=== PATIENT | female | born 1955 | race Caucasian/White ===

== ENCOUNTER → 2017-08-30 16:34 | Outpatient (CLI) | payer BC, SELFPAY ==
--- NOTE | 2017-08-30 16:41 | MM_ITS ---
. MM Dig screening mamm BI w/CAD CAD Screening ORDERING PHYSICIAN : Ramsey Nye MD PATIENT AGE: 62 years GENDER: Female COMPARISON: Previous mammograms: July INDICATION: Routine screening mammogram. No hormones. Previous stereotactic biopsy right breast benign. Family history:. Sister breast cancer age 54. Also paternal aunt with breast cancer TECHNIQUE: Standard CC and MLO images were obtained. R2 CAD reviewed. Additional axillary cc FINDINGS: Moderate density scattered fibroglandular elements bilaterally. RIGHT BREAST:. Biopsy central right breast with metallic marker clip noted. On this area has remained stable. Density on cc view dissipates on MLO view LEFT BREAST:Inhomogeneous fibroglandular elements appear stable and remain slightly more evident throughout the left breast with right but no new areas of concern... Area of density towards axillary tail left breast is stable and most likely intramammary lymph node Progressive replacement evident. 2013 and 2011 IMPRESSION:. STABLE bilateral mammogram... No new areas of concern BI-RADS Category: 2 Benign Finding(s) RECOMMENDED FOLLOW-UP: 1YR - 1 YEAR FOLLOW-UP (A letter has been sent to the patient regarding results of the study.)
== END ==
PROVIDERS: Family Provider Family Medicine; PCP Family Medicine; Visit Provider Family Medicine
DX: Z12.31 Encounter for screening mammogram for malignant neoplasm of breast (principal)
CPT/HCPCS: 77067

== ENCOUNTER → 2017-11-02 08:21 | Outpatient (POV) | payer BC, SELFPAY | PROVIDERS: Visit Provider Dentist | DX: Z00.00 Encounter for general adult medical examination without abnormal findings (principal) ==

== ENCOUNTER → 2017-11-23 10:21 | Outpatient (POV) | payer BC, SELFPAY | PROVIDERS: Family Provider Family Medicine; Visit Provider Dentist | DX: Z00.00 Encounter for general adult medical examination without abnormal findings (principal) ==

== ENCOUNTER → 2017-12-07 08:18 | Outpatient (POV) | payer BC, SELFPAY | PROVIDERS: Visit Provider Dentist | DX: Z00.00 Encounter for general adult medical examination without abnormal findings (principal) ==

== ENCOUNTER → 2018-09-06 15:12 | Outpatient (CLI) | payer BC, SELFPAY ==
--- NOTE | 2018-09-06 15:16 | XR_ITS ---
XR DEXA axial skeleton HISTORY: ITS.REASON: OSTEOPENIA ORDERING PHYSICIAN: Ramsey Nye MD PATIENT AGE: 63 years COMPARISON: None FINDINGS: The BMD measured at the Right femoral neck is 0.849 g/cm squared with a T score of -1.4. This is considered Osteopenic according to the World Health Organization criteria. Fracture risk is Moderate. Treatment is advised. IMPRESSION: Osteopenia with moderate fracture risk. Treatment suggested. Recommend follow-up exam August 2020
--- NOTE | 2018-09-06 15:17 | MM_ITS ---
MM Dig screening mamm BI w/CAD CAD Screening COMPARISON: Digital mammograms with CAD 08/30/2017 and 07/19/2016 INDICATION: There is a history of breast cancer in patient's sister diagnosed at age 54 and in the patient's paternal aunt. There is been previous biopsy right breast for benign disease. TECHNIQUE: Standard CC and MLO images were obtained. R2 CAD reviewed. FINDINGS: Scattered fibroglandular densities are seen in the subareolar regions and central portions of both breasts. There is a biopsy clip deep to the nipple right breast with very minimal post biopsy scarring. There is a stable benign-appearing nodular density upper outer quadrant left breast. There is a benign-appearing calcification near the axillary tail right breast. There is no suspicious lesion and there are no suspicious microcalcifications. IMPRESSION: Fibrofatty parenchyma with no suspicious lesion seen BI-RADS Category: 2 Benign Finding(s) RECOMMENDED FOLLOW-UP: 1YR - 1 YEAR FOLLOW-UP (A letter has been sent to the patient regarding results of the study.)
== END ==
PROVIDERS: PCP Family Medicine; Visit Provider Family Medicine
DX: M85.80 Other specified disorders of bone density and structure, unspecified site (principal); Z12.31 Encounter for screening mammogram for malignant neoplasm of breast
CPT/HCPCS: 77067; 77080

== ENCOUNTER → 2019-11-14 07:51 | Outpatient (CLI) | payer BC, SELFPAY ==
--- NOTE | 2019-11-14 07:55 | MM_ITS ---
PROCEDURE: MM DIG SCREENING MAMM BI W/CAD Digital Breast Tomosynthesis Included CLINICAL INDICATION: SCREENING COMPARISON: [id number] DIG MAMM-DX UNI ADD VIEWS-LT from 08/03/2016 [facility] MM Dig screening mamm BI w/CAD from 08/30/2017 [facility] MM Dig screening mamm BI w/CAD from 09/06/2018 TECHNIQUE: Standard CC and MLO images and 3D Tomosynthesis was obtained. R2 CAD reviewed. FINDINGS: Breasts are of average density. A metallic density from stereotactic biopsy is seen in the retroareolar region of the right breast. Benign appearing calcifications are noted. No discrete mass suspicious clustered microcalcification or other new findings suspicious for malignancy is apparent. IMPRESSION: BI-RAD Category: 2 Benign Finding(s) FOLLOW-UP: 1YR 1 Year Follow-up (A letter has been sent to the patient regarding results of the study.) Dictated by: Kayden Wilcox 11/14/2019 08:47 Electronically signed by Kayden Wilcox in [place] 11/14/2019 08:47
== END ==
PROVIDERS: PCP Family Medicine; Visit Provider Family Medicine
DX: Z12.31 Encounter for screening mammogram for malignant neoplasm of breast (principal); N60.19 Diffuse cystic mastopathy of unspecified breast; R42 Dizziness and giddiness
CPT/HCPCS: 77063; 77067; 93225; 93226

== ENCOUNTER → 2020-05-04 12:59 | Outpatient (CLI) | payer BC, SELFPAY ==
[2020-05-04 13:47] LABS: Basophils % 0.4 % (0.1-2.0); Eosinophils # 0.1 K/mm3 (0.0-0.4); Eosinophils % 0.7 % (0.1-12.0); Hematocrit 38.2 % (37.0-47.0); Hemoglobin 13.2 g/dL (12.2-16.2); Lymphocytes # 2.6 K/mm3 (0.7-4.5); Lymphocytes % 37.3 % (10-50); Mean Corpuscular HGB Conc 34.7 g/dL (31.8-35.4); Mean Corpuscular Hemoglobin 30.4 pg (27.0-31.2); Mean Corpuscular Volume 87.6 fl (81-99); Mean Platelet Volume 7.6 fl (7.4-10.4); Monocytes # 0.3 K/mm3 (0.1-1.0); Monocytes % 4.7 % (1.7-9.3); Platelet Count 269 K/mm3 (142-424); Red Blood Count 4.36 M/mm3 (4.20-5.40)
[2020-05-05 16:40] LABS: Covid-19 Nasal PCR Sendout Lex Not Detected
== END ==
PROVIDERS: PCP Family Medicine; Visit Provider Nurse Practitioner Family
DX: Z03.818 Encounter for observation for suspected exposure to other biological agents ruled out (principal)
CPT/HCPCS: 36415; 85025; U0004

== ENCOUNTER 2020-07-06 09:55 | Emergency (ER) | payer BC, SELFPAY ==
[2020-07-06 10:20] VITALS: BP 112/72; PULSE 79; RESP 20; TEMP 36.7; O2SAT 98; BMI 24.6
--- NOTE | 2020-07-06 10:59 | HMH.EDUTC ---
[facility] – [place], [place] Disposition Clinical Impression: Diarrhea Qualifiers: Diarrhea type: unspecified type Qualified Code(s): R19.7 - Diarrhea, unspecified Disposition: Home, Self-Care Condition on Discharge: Good Instructions: Diarrhea, DI for Dehydration -- Adult, DI for Nausea -- Adult, Nausea and Vomiting-Adult Additional Instructions: ? Avoid fruit juices, as these do not replace minerals and can actually increase diarrhea. ? Children and adults can use sports drinks to replenish electrolytes. Younger children and infants should use products formulated for children, like oral rehydration solutions. ? Eat food in small amounts and let your stomach recover. ? Get lots of rest. You may feel tired or weak. ? No greasy or fried foods for the next 24-48 hours BRAT diet Bananas Rice Apples and Pajaro ? Make sure to drink plenty of liquids ? Return if needed ? Straight to ER if any life threatening symptoms ? Zofran as prescribed ? You was given an outpatient order for diarrhea panel, please collect specimen and bring back to outpatient lab then call back to the [facility] or follow up with family doctor for results ? Follow up with family doctor in the next 48-72 hours if no improvement or any worsening of symptoms With COVID you may not feel like eating or drinking, but make sure that you are drinking water, gatoraid etc to make sure that you are keeping yourself hydrated to replace loss fluids from sweating, vomiting and diarrhea. Straight to ER if any life threatening symptoms Prescriptions: Ondansetron [Zofran 4mg ODT] 4 mg PO TIDP PRN #6 tab PRN Reason: Nausea Transmission Status: Received by [facility] Referrals: Ramsey Nye MD [Primary Care Provider] - As needed Time of Disposition: 12:51 Medical Decision Making - Hussein Inquiry Pt receiving controlled substance: No Hussein was queried for this patient: No Vital Signs: 07/06/20 10:20 07/06/20 13:02 Temperature 98.1 F 98.1 F Temperature Source Oral Pulse Rate 79 Pulse Rate [Right Brachial] 79 Respiratory Rate 20 20 Blood Pressure 112/72 Blood Pressure [Right Arm] 112/72 Blood Pressure Mean [Right Arm] 85 Blood Pressure Source [Right Arm] Automatic Cuff Blood Pressure Position [Right Arm] Sitting 02 Sat by Pulse Oximetry 98 Oxygen Delivery Method Room Air Orders (Tests/Meds): ED MEDICATIONS Discontinued Medications Generic Name Dose Route Start Last Admin Trade Name Lucy PRN Reason Stop Dose Admin Sodium Chloride 1,000 mls @ 999 mls/hr 07/06/20 11:45 07/06/20 11:15 Sod Chlor 0.9% 1000ml Bag IV 07/06/20 12:45 999 mls/hr .Q1H1M SHANNON Administration Ondansetron HCl 4 mg 07/06/20 11:05 07/06/20 11:39 Ondansetron 4mg/2ml Vial IV 07/06/20 11:06 4 mg ONCE ONE Administration Medical Decision Narrative: Patient resting on exam table states that nausea now gone after medication resting quietly with ordered fluids infusing Patient still resting in bed ordered fluids infusing no vomiting or diarrhea since arrival Fluids finished patient reports that she is feeling much better and no longer having nausea no vomiting or diarrhea since arrival [facility] – [place], [place] HPI - General Stated complaint: tested positive, not feeling good Time Seen by Provider: 07/06/20 10:59 Mode of Arrival: Ambulatory Source of Information: Patient Limitations: No Limitations Description of Symptoms (Recalled from Triage Doc. by RN): PATIENT REPORTS SHE TESTED POSITIVE FOR COVID APPROX 2 WEEKS AGO. C/O GENERAL MALAISE, NAUSEA, STOMACH ACHE, DIARRHEA, AND INABILITY TO EAT OR DRINK X 1 WEEK. HEENT Symptoms (Recalled from RN notes): No Resp Symptoms (Recalled from RN notes): No Skin Symptoms (Recalled from RN notes): No MS Symptoms (Recalled from RN notes): No Functional Status (Recalled from RN notes): WNL - History of Present Illness Provider Complaint: Patient states that she was tested and dx with COVID about 2 weeks ago States that her is doing better but f
[2020-07-06 13:02] VITALS: BP 112/72; PULSE 79; RESP 20; TEMP 36.7; O2SAT 98
== END 2020-07-06 13:13 | disposition home or self-care (01) ==
PROVIDERS: Emergency Provider Nurse Practitioner; PCP Family Medicine
DX: U07.1 COVID-19 (principal); I10 Essential (primary) hypertension; Z88.8 Allergy status to other drugs, medicaments and biological substances; M81.0 Age-related osteoporosis without current pathological fracture; Z79.899 Other long term (current) drug therapy
CPT/HCPCS: 96365; 96375; 99201; J2405

== ENCOUNTER → 2020-11-24 12:44 | Outpatient (CLI) | payer BC, SELFPAY ==
[2020-11-24 13:27] LABS: Alanine Aminotransferase 15 U/L (12-78); Albumin Level 4.3 g/dl (3.5-5.0); Albumin/Globulin Ratio 1.6 (1.1-1.8); Alkaline Phosphatase 59 U/L (38-126); Anion Gap 10.1 mEq/L (5-15); Aspartate Amino Transferase 28 U/L (14-36); Bilirubin,Total 0.4 mg/dl (0.2-1.3); Blood Urea Nitrogen 19 mg/dl (7-17); Carbon Dioxide 30 mmol/L (22.0-30.0); Chloride 103 mmol/L (98-107); Estimated Glomerular Filt Rate 72 ml/min (>60); GFR (African American) 87 ML/MIN (>60); Globulin 2.7 g/dL (1.3-3.2); Glucose 87 mg/dl (74-100); Potassium 4.1 mmoL/L (3.5-5.1); Sodium 139 mmol/L (136-145)
[2020-11-24 13:44] LABS: Free T4 (Free Thyroxine) 1.07 ng/dl (0.78-2.19)
[2020-11-24 13:58] LABS: Thyroid Stimulating Hormone 0.57 uIU/mL (0.465-4.68)
[2020-11-24 14:33] LABS: Vitamin B12 454 pg/mL (239-931)
[2020-11-24 14:43] LABS: Folate > 20.00 ng/mL
[2020-11-24 15:17] LABS: Erythrocyte Sedimentation Rate 14 mm/hr (0-30)
== END ==
PROVIDERS: Visit Provider Family Medicine
DX: I10 Essential (primary) hypertension (principal); E53.8 Deficiency of other specified B group vitamins; E01.0 Iodine-deficiency related diffuse (endemic) goiter; M85.859 Other specified disorders of bone density and structure, unspecified thigh
CPT/HCPCS: 80053; 82607; 82746; 84439; 84443; 85651

== ENCOUNTER → 2020-11-27 07:56 | Outpatient (CLI) | payer BC, SELFPAY ==
--- NOTE | 2020-11-27 07:59 | MM_ITS ---
PROCEDURE: MM DIG SCREENING MAMM BI W/CAD Digital Breast Tomosynthesis Included CLINICAL INDICATION: SCREENING There is a history of breast cancer in patient's sister diagnosed at age 54 and in the patient's aunt. There has been a previous biopsy right breast for benign disease. COMPARISON: MG [facility] MM Dig screening mamm BI w/CAD from 08/30/2017 MG [facility] MM Dig screening mamm BI w/CAD from 09/06/2018 MG MM DIG SCREENING MAMM BI W/CAD from 11/14/2019 TECHNIQUE: Standard CC and MLO images and 3D Tomosynthesis was obtained. R2 CAD reviewed. FINDINGS: Moderate scattered fibroglandular densities are seen throughout both breasts. There is a biopsy clip seen just deep to the nipple right breast. There is a stable tiny benign-appearing nodular density upper-outer quadrant left breast probably a tiny cyst or intramammary node. There is a benign-appearing microcalcification deep within the right breast. There is no suspicious lesion and no suspicious microcalcifications. IMPRESSION: Fibrofatty parenchyma with no suspicious lesions seen BI-RAD Category: 2 Benign Finding(s) FOLLOW-UP: 1YR 1 Year Follow-up (A letter has been sent to the patient regarding results of the study.) Dictated by: Dr. Prem Ching MD 11/27/2020 13:23 Dr. Prem Ching MD in [place] 11/27/2020 13:23
== END ==
PROVIDERS: PCP Family Medicine; Visit Provider Family Medicine
DX: Z12.31 Encounter for screening mammogram for malignant neoplasm of breast (principal)
CPT/HCPCS: 77063; 77067

== ENCOUNTER → 2021-12-15 09:54 | Outpatient (CLI) | payer MEDICARE, SELFPAY ==
--- NOTE | 2021-12-15 09:59 | MM_ITS ---
PROCEDURE INFORMATION: Exam: MG Bilateral Screening 3D Mammography Exam date and time: 12/15/2021 9:56 AM Age: 66 years old Clinical indication: Screening examination. History of breast cancer in sister at age 54 as well as paternal aunt. TECHNIQUE: Imaging protocol: Bilateral Screening tomosynthesis and 2D mammography including computer-aided detection (CAD) when performed. COMPARISON: 1. MG MM DIG SCREENING MAMM BI W/CAD 11/27/2020 8:00 AM 2. MG MM DIG SCREENING MAMM BI W/CAD 11/14/2019 8:00 AM 3. MG [facility] MM Dig screening mamm BI w/CAD 09/06/2018 4:04 PM 4. MG [facility] MM Dig screening mamm BI w/CAD 08/30/2017 4:46 PM FINDINGS: MAMMOGRAPHY: Breast composition: There are scattered areas of fibroglandular density. Mass: No suspicious mass. Architectural distortion: None. Calcifications: No suspicious calcifications. Asymmetric density: None. Skin thickening: None. Axillary adenopathy: None. Other findings: Right biopsy clip. IMPRESSION: No mammographic evidence of malignancy. Annual screening is recommended unless otherwise clinically indicated. ASSESSMENT: BI-RADS Category 2: Benign
== END ==
PROVIDERS: PCP Family Medicine; Visit Provider Family Medicine
DX: Z12.31 Encounter for screening mammogram for malignant neoplasm of breast (principal)
CPT/HCPCS: 77063; 77067

== ENCOUNTER → 2022-03-08 15:27 | Outpatient (POV) | payer MEDICARE, SELFPAY | PROVIDERS: Visit Provider Dermatology | DX: Z00.00 Encounter for general adult medical examination without abnormal findings (principal) ==

== ENCOUNTER → 2022-07-04 08:25 | Outpatient (CLI) | payer MEDICARE, SELFPAY | PROVIDERS: PCP Family Medicine; Visit Provider Physician Assistant | DX: R19.7 Diarrhea, unspecified (principal) ==

== ENCOUNTER → 2022-12-19 08:28 | Outpatient (CLI) | payer MEDICARE, SELFPAY ==
--- NOTE | 2022-12-19 08:32 | MM_ITS ---
PROCEDURE INFORMATION: Exam: MG Bilateral Screening 3D Mammography Exam date and time: 12/19/2022 8:26 AM Age: 67 years old Clinical indication: Screening mammogram TECHNIQUE: Imaging protocol: Bilateral Screening tomosynthesis and 2D mammography including computer-aided detection (CAD) when performed. COMPARISON: 1. MG MM DIG SCREENING MAMM BI W/CAD 12/15/2021 9:56 AM 2. MG MM DIG SCREENING MAMM BI W/CAD 11/27/2020 8:00 AM 3. MG MM DIG SCREENING MAMM BI W/CAD 11/14/2019 8:00 AM 4. MG [facility] MM Dig screening mamm BI w/CAD 09/06/2018 4:04 PM FINDINGS: MAMMOGRAPHY: Breast composition: There are scattered areas of fibroglandular density. Mass: None. Architectural distortion: No new or suspicious architectural distortion. Calcifications: No new or suspicious calcifications are present Asymmetric density: No new or suspicious asymmetric density is present Skin thickening: None. Axillary adenopathy: None. IMPRESSION: No mammographic evidence of malignancy. Recommend annual screening mammography unless otherwise clinically indicated. ASSESSMENT: BI-RADS category 1: Negative
== END ==
PROVIDERS: PCP Family Medicine; Visit Provider Family Medicine
DX: Z12.31 Encounter for screening mammogram for malignant neoplasm of breast (principal)
CPT/HCPCS: 77063; 77067

== ENCOUNTER 2023-01-09 08:53 | Emergency (ER) | payer MEDICARE, SELFPAY ==
--- NOTE | 2023-01-09 09:20 | EXP.UTC ---
Discharge Plan Disposition Patient Disposition: Home, Self-Care Condition: Good Prescriptions Prescriptions: New diphenhydramine HCl [Diphenhydramine HCl] 25 mg capsule 25 mg PO Q6HP PRN (Reason: Itching) Qty: 30 0RF triamcinolone acetonide 0.1 % cream 1 applic topical BID PRN (Reason: itching) Qty: 30 0RF methylprednisolone 4 mg Tablets,Dose Pack 4 mg PO DIRECTED Qty: 21 0RF No Action potassium chloride 10 MEQ capsule, extended release 10 meq PO DAILY triamterene-hydrochlorothiazid 1 EACH tablet 1 each PO DAILY raloxifene 60 MG tablet 60 mg PO DAILY risedronate 35 MG tablet,delayed release (DR/EC) 35 mg PO WEEKLY Referrals Follow up/Referrals: Ramsey Nye MD [Primary Care Provider] - See instructions Activity Restrictions/Add. Instructions Additional Instructions/Restrictions: Try to identify and avoid contact with the offending substance (poison katelyn). Don't start the oral steroids until tomorrow. The diphenhydramine (benedryl) will make you drowsy, so don't drive or operate heavy machinery after taking it. Don't put the topical steroids (triamcinolone) on your face or your groin. Follow up with your regular doctor. GO TO THE ER FOR ANY WORSENING SYMPTOMS OR CONCERNS Clinical Impressions Clinical Impression: Contact dermatitis due to poison katelyn Instructions Patient Instructions: DI for Poison Katelyn Allergy, Methylprednisolone Injection Discharge ED Provider: Corbin Guerrero [facility] General Stated complaint: Poison katelyn rash Time Seen by Provider: 01/09/23 09:20 History of Present Illness Provider Complaint: She states that she has had a rash on her arms, legs, chest and face for the past 1 week. Related Data Home Medications Medication Instructions Recorded Confirmed potassium chloride 10 mEq 10 meq PO DAILY Supplement 07/06/20 01/09/23 capsule,extended release raloxifene 60 mg tablet 60 mg PO DAILY Osteoporosis 07/06/20 01/09/23 risedronate 35 mg tablet,delayed 35 mg PO WEEKLY Osteoporosis 07/06/20 01/09/23 release triamterene 37.5 1 each PO DAILY Hypertension 07/06/20 01/09/23 mg-hydrochlorothiazide 25 mg tablet Previous Rx's Medication Instructions Recorded diphenhydramine HCl 25 mg capsule 25 mg PO Q6HP PRN Itching #30 caps 01/09/23 methylprednisolone 4 mg tablets in 4 mg PO DIRECTED #21 tabs 01/09/23 a dose pack triamcinolone acetonide 0.1 % 1 applic topical BID PRN itching 01/09/23 topical cream #30 grams Allergies Allergy/AdvReac Type Severity Reaction Status Date / Time fentanyl [FENTANYL] Allergy Unknown Verified 01/09/23 09:06 tolmetin [TOLMETIN] Allergy Unknown Verified 01/09/23 09:06 [facility] Disclaimer: The information contained in this section may have been updated after the patient was seen, as this information can be updated by other users. Medical History Hypertension Osteoporosis Rheumatoid arthritis Surgical History H/O excision of ganglion cyst H/O tubal ligation History of cholecystectomy History of hysterectomy History of tonsillectomy Social History Smoking Status: Never smoker alcohol intake: never current occupational status: other Travel in the last 8 weeks: None ROS Obtained: Yes All systems reviewed & no additional complaints except as documented Constitutional Constitutional: Denies chills and Denies fever(s) Eyes Eyes: Denies eye discharge ENT Ears, Nose, Mouth, and Throat: Denies dizziness, Denies otalgia and Denies sore throat Cardiovascular Cardiovascular: Denies chest pain Respiratory Respiratory: Denies shortness of breath, Denies chest congestion, Denies cough, Denies stridor and Denies wheezing Gastrointestinal Gastrointestingal: Denies nausea or vomiting Musculoskeletal Musculoskeleta
[2023-01-09 09:24] VITALS: BP 112/82; PULSE 71; RESP 18; TEMP 36.5; O2SAT 98; BMI 26.4
[2023-01-09 09:54] VITALS: BP 112/82; PULSE 71; RESP 16; TEMP 36.5; O2SAT 98
== END 2023-01-09 09:55 | disposition home or self-care (01) ==
PROVIDERS: Emergency Provider Nurse Practitioner Family; PCP Family Medicine
DX: L23.7 Allergic contact dermatitis due to plants, except food (principal); I10 Essential (primary) hypertension; W60.XXXA Contact with nonvenomous plant thorns and spines and sharp leaves, initial encounter
CPT/HCPCS: 96372; 99212; 99214; G0463

== ENCOUNTER → 2023-01-17 08:52 | Outpatient (CLI) | payer MEDICARE, SELFPAY ==
--- NOTE | 2023-01-17 08:55 | XR_ITS ---
FINAL REPORT CLINICAL HISTORY: post menopausal FINDINGS: Using L1-4, the bone mineral density of the spine is 1.034 g/cm2, corresponding to T-score of -0.1. Using the left hip, the bone mineral density of the femoral neck is 0.811 g/cm2, corresponding to a T-score of -1.1. Using the right hip: The bone mineral density of the femoral neck is 0.695 g/cm2, corresponding to a T-score of -1.4. FRAX: 10 year fracture risk is 16 % for a hip fracture and 1.7% for a major osteoporotic fracture. IMPRESSION: Normal bone mineral density of the lumbar spine. Osteopenia of the bilateral hips. NOTE: T-score: Standard deviation compared with peak bone mass of young adult mean. *Following the recommendations of the International Society of Bone densitometry, classification of hip BMD is based on the lower of two T-scores; total hip or femoral neck. Reviewed, Interpreted and Dictated by Ramsey Rene MD Transcribed by Nika Moyer Authenticated and [facility]
== END ==
PROVIDERS: PCP Family Medicine; Visit Provider Family Medicine
DX: M85.89 Other specified disorders of bone density and structure, multiple sites (principal)
CPT/HCPCS: 77080

== ENCOUNTER 2024-02-06 10:30 | Outpatient (CLI) | payer MEDICARE, SELFPAY ==
--- NOTE | 2024-02-06 10:34 | MM_ITS ---
PROCEDURE INFORMATION: Exam: MG Bilateral Screening 3D Mammography Exam date and time: 02/06/2024 10:19 AM Age: 68 years old Clinical indication: Screening examination TECHNIQUE: Imaging protocol: Bilateral Screening tomosynthesis and 2D mammography including computer-aided detection (CAD) when performed. COMPARISON: No relevant prior studies available. FINDINGS: MAMMOGRAPHY: Breast composition: There are scattered areas of fibroglandular density. Mass: None. Architectural distortion: None. Calcifications: No suspicious calcifications. Asymmetric density: None. Skin thickening: None. Axillary adenopathy: None. IMPRESSION: No mammographic evidence of malignancy. Annual screening is recommended unless otherwise clinically indicated. ASSESSMENT: BI-RADS Category 1: Negative
== END 2024-02-06 23:59 | disposition home or self-care (01) ==
LOC: RAD 10:30
PROVIDERS: PCP Family Medicine; Visit Provider Family Medicine
DX: Z12.31 Encounter for screening mammogram for malignant neoplasm of breast (principal)
CPT/HCPCS: 77063; 77067

== ENCOUNTER 2024-05-06 11:51 | Outpatient (CLI) | payer MEDICARE, SELFPAY | END 2024-05-06 23:59 | disposition home or self-care (01) | PROVIDERS: PCP Family Medicine; Visit Provider Nurse Practitioner Family | DX: Z02.9 Encounter for administrative examinations, unspecified (principal) ==

== ENCOUNTER 2024-05-08 08:37 | Outpatient (CLI) | payer MEDICARE, SELFPAY ==
[2024-05-08 08:45] LABS: Adenovirus F 40/41, stool Not Detected (NotDetected); Astrovirus Not Detected (NotDetected); Campylobacter Not Detected (NotDetected); Clostridium Difficile A/B, PCR Not Detected (NotDetected); Cryptosporidium Not Detected (NotDetected); Cyclospora Cayetanesis Not Detected (NotDetected); Entamoeba histolytica Not Detected (NotDetected); Enteroaggregative E coli Not Detected (NotDetected); Enteropathogenic E coli Not Detected (NotDetected); Enterotoxigenic E coli Not Detected (NotDetected); Giardia lamblia Not Detected (NotDetected); Norovirus Not Detected (NotDetected); Plesimonas Shigalloides, PCR Not Detected (NotDetected); Rotavirus A Not Detected (NotDetected); Salmonella, PCR Not Detected (NotDetected); Sapovirus Not Detected (NotDetected); Shiga-like toxin E coli Not Detected (NotDetected); Shigella Enterovasive E coli Not Detected (NotDetected); Vibrio Cholerae Not Detected (NotDetected); Vibrio, PCR Not Detected (NotDetected); Yersinia Entercolitica, PCR Not Detected (NotDetected)
== END 2024-05-08 23:59 | disposition home or self-care (01) ==
PROVIDERS: Nurse Practitioner Family; PCP Family Medicine; Visit Provider Family Medicine
DX: R19.7 Diarrhea, unspecified (principal)
CPT/HCPCS: 87506

== ENCOUNTER 2024-05-20 11:47 | Outpatient (CLI) | payer MEDICARE, SELFPAY ==
[2024-05-20 14:21] LABS: Blood Urea Nitrogen 28 mg/dl (7-17); Estimated Glomerular Filt Rate 62 ml/min (>60); GFR (African American) 75 ML/MIN (>60)
== END 2024-05-20 23:59 | disposition home or self-care (01) ==
LOC: LAB 11:52
PROVIDERS: PCP Family Medicine; Visit Provider Family Medicine
DX: R10.9 Unspecified abdominal pain (principal)
CPT/HCPCS: 36415; 82565; 84520

== ENCOUNTER 2024-05-21 07:47 | Outpatient (CLI) | payer MEDICARE, SELFPAY ==
--- NOTE | 2024-05-21 07:50 | CT_ITS ---
FINAL REPORT TECHNIQUE: Axial CT images of the abdomen and pelvis were obtained before and after the administration of IV contrast. This study was performed with techniques to keep radiation doses as low as reasonably achievable (ALARA). Individualized dose reduction techniques using automated exposure control or adjustment of mA and/or kV according to the patient's size were employed. CLINICAL HISTORY: Acute diffuse abdominal pain. COMPARISON: None. FINDINGS: Abdomen: The lung bases are clear. The heart is normal in size. There are several less than 1 cm hepatic cysts. Patient is status post cholecystectomy. The spleen is unremarkable. No adrenal masses present. The pancreas has an unremarkable appearance. There is a 38 mm cyst in the upper pole of the left kidney. There is a less than 1 cm cyst in the mid right kidney. The aorta is normal in caliber. There is no free fluid or adenopathy. No mass or abnormal fluid collection is seen. Precontrast images demonstrate no evidence of nephrolithiasis. Pelvis: The appendix is normal. There is sigmoid colon diverticulosis. Patient is status post hysterectomy. The urinary bladder is unremarkable. No inflammatory process is seen. There is no evidence of mass or adenopathy. There is no evidence of bowel obstruction. IMPRESSION: No evidence of acute intra-abdominal process. Hepatic and renal cysts as above. Reviewed, Interpreted and Dictated by Tod Wan III, MD Transcribed by Malka Gonzalez PA-C Authenticated and [facility]
[2024-05-21] MEDS: SODIUM CHLORIDE 0.9% 10ML SYR (RAD ONLY) 10 ML IV (08:22)
[2024-05-21] MEDS: IOPAMIDOL-370 (76%);100ML BOTTLE 75 ML IV (08:22)
== END 2024-05-21 23:59 | disposition home or self-care (01) ==
LOC: RAD 07:49
PROVIDERS: PCP Family Medicine; Visit Provider Nurse Practitioner Family
DX: N28.1 Cyst of kidney, acquired (principal); R10.9 Unspecified abdominal pain
CPT/HCPCS: 74178; Q9967

== ENCOUNTER 2024-10-07 15:53 | Outpatient (CLI) | payer MEDICARE, SELFPAY ==
--- NOTE | 2024-10-07 16:03 | ECG_ITS ---
APPROVED REPORT Exam: Resting ECG HR:82 bpm ECG Measurements Heart Rate 82 AXES NE 161 P 65 QRSd 114 QRS -44 QT 367 T 69 QTc 406 Conclusion SINUS RHYTHM WITH OCCASIONAL VENTRICULAR PREMATURE COMPLEXES LEFT AXIS DEVIATION [QRS AXIS < -30] INCOMPLETE RIGHT BUNDLE BRANCH BLOCK [90+ ms QRS DURATION, TERMINAL R IN V1/V2, 40+ ms S IN I/aVL/V4/V5/V6] LEFT VENTRICULAR HYPERTROPHY AND ST-T CHANGE [VOLTAGE CRITERIA PLUS ST/T ABNORMALITY] POSSIBLE SEPTAL MYOCARDIAL INFARCTION , PROBABLY OLD [30 ms Q WAVE IN V1/V2] ABNORMAL ECG UNCONFIRMED REPORT Electronically signed by : Kenny Toure MD 10/09/2024 08:51:20
== END 2024-10-07 23:59 | disposition home or self-care (01) ==
LOC: RT 15:54
PROVIDERS: PCP Family Medicine; Visit Provider Family Medicine
DX: R00.2 Palpitations (principal)
CPT/HCPCS: 93005

== ENCOUNTER 2024-11-04 17:08 | Observation (INO) | payer MEDICARE, SELFPAY ==
[2024-11-04 17:24] VITALS: BP 139/71; PULSE 74; RESP 20; TEMP 36.4; O2SAT 96; BMI 24.1
[2024-11-04 17:33] VITALS: PULSE 74
--- NOTE | 2024-11-04 17:40 | P.HP_ITS ---
History of Present Illness *Admission Date: 11/04/24 *Reason for visit:: symptomatic cardiac dysrrhythmia *History of present illness: Ms. España is a 69-year-old female with a history of diverticulosis, chronic cystitis, abnormal EKG with left anterior fascicular block, hypertension, rheu matoid arthritis, essential hypertension, memory loss, near syncope. Who presented to the office of [facility] for follow-up on insomnia. She has recently been started on sleeping med. She noted having crazy dreams when she went to sleep. She was also noted to be in Augmentin 3 times a day for dental work. She has recently had some visual changes for the past 2 weeks which she describes as white circles on her lateral vision. With exam she was found to have frequent ectopics. Previous EKG showed cardiac arrhythmia she was thus admitted due to a near syncopal episode with dizziness at home. She has had some midsternal chest discomfort but denies any shortness of breath. She sometimes has a cough but has not had any other upper respiratory symptoms or fever. She was thus admitted for further evaluation and treatment. [facility] Disclaimer: The information contained in this section may have been updated after the patient was seen, as this information can be updated by other users. Medical History (Updated 11/04/24 @ 18:01 by Ruthann Vaughn APRN) Diverticulosis Chronic cystitis Rheumatoid arthritis Osteoporosis Hypertension Surgical History H/O excision of ganglion cyst H/O tubal ligation History of tonsillectomy History of hysterectomy History of cholecystectomy Family History (Updated 11/04/24 @ 17:43 by Betzaida Lindsay) Father Brain cancer Family history of myocardial infarction Social History Smoking Status: Never smoker alcohol intake: never current occupational status: other Travel in the last 8 weeks: None Have you lived/traveled outside US in past 30 days?: No Contact w/someone who lives/traveled outside US past 30 days?: No Exposure to someone with infectious disease in past 14 days?: No Do you have a fever (greater than 100.4 F or 38 C)?: No Have you tested positive for COVID-19: No Exposed to someone with COVID-19 in past 14 days?: No Do you have a sore throat?: No Do you have a cough?: No Do you have any weakness?: No Do you have any diarrhea?: No Are you experiencing any unusual bleeding?: No Do you have any muscle aches/pain?: No Do you have any abdominal pain?: No Are you experiencing loss of taste or smell?: No Other Medical History Have you received the Flu Vaccine for this season: Yes Have you received the Pneumonia Vaccine: Yes Review of Systems Constitutional Constitutional: Denies body ache(s), Reports difficulty sleeping, Denies fever(s), Denies frequent falls and Denies headache(s) Eyes Eyes: Denies change in vision, Reports floaters (??) and Denies loss of peripheral vision ENT Ears, Nose, Mouth, and Throat: Reports dizziness, Denies otalgia, Denies headache(s) and Denies sore throat *Cardiovascular Cardiovascular: Reports chest pain (Midsternal), Denies dyspnea, Denies edema, Reports irregular heart rhythm, Denies leg edema, Reports lightheadedness and Reports syncope (Near fainting) *Respiratory Respiratory: Denies chest congestion, Reports cough and Denies dyspnea *Gastrointestinal Gastrointestinal: Denies abdominal pain, Reports diarrhea (Since being on Augmentin), Denies melena, Denies nausea and Denies vomiting *Genitourinary Genitourinary: Denies dysuria *Musculoskeletal Musculoskeletal: Denies abnormal gait *Neurologic Neurologic: Denies abnormal gait, Denies abnormal movements, Denies abnormal speech, Reports dizziness, Denies frequent falls, Denies headache(s) and Reports syncope (Near fainting) Meds Home Medications and Allergies Home Medications ?Medication ?Instructions ?Recorded ?Confirmed ?Type potassium chloride 10 mEq 10 meq PO DAILY Supplement 07/06/20 11/04/24 History capsule,extended release raloxifene 60 mg tablet 60 mg PO DAILY Osteoporosis 07/06/20 11/04/24 History triamterene 37.5 1 each PO DAILY Hypertension 07/06/20 11/04/24 History mg-hydrochlorothiazide 25 mg tablet amoxicillin 500 mg-potassium 500 tab PO TID 11/04/24 11/04/24 History clavulanate 125 mg tablet donepezil 5 mg tablet 5 mg PO HS 11/04/24 11/04/24 History duloxetine 30 mg capsule,delayed 30 mg PO DAILY 11/04/24 11/04/24 History release duloxetine 30 mg capsule,delayed 30 mg PO DAILY 11/04/24 11/04/24 History release leflunomide 20 mg tablet 20 mg PO DAILY 11/04/24 11/04/24 History pramipexole 0.125 mg tablet 0.125 mg PO HS 11/04/24 11/04/24 History trazodone 50 mg tablet 50 mg PO HS 11/04/24 11/04/24 History New Prescriptions to Start Prescriptions: Allergies Allergy/AdvReac Type Severity Reaction Status Date / Time fentanyl (FENTANYL) Allergy Unknown Verified 01/09/23 09:06 tolmetin (TOLMETIN) Allergy Unknown Verified 01/09/23 09:06 Exam Data for Last 24 hours Vital signs and Labs for Last 24 Hours: Temp Pulse Resp BP Pulse Ox O2 Del Method 97.6 F 74 20 139/71 96 Room Air 11/04/24 17:24 11/04/24 17:24 11/04/24 17:24 11/04/24 17:24 11/04/24 17:24 11/04/24 17:24 I & O for Last 24 hours: Intake & Output 11/02/24 11/03/24 11/04/24 11/05/24 11:59 11:59 11:59 11:59 Intake Total 360 / 360 Balance 360 / 360 Weight 136 lb 8 oz Constitutional Constitutional: no acute distress *Routine HEENT Exam Head: Present normocephalic and atraumatic Eye: Present PERRL; Absent conjunctival icterus, scleral injection or conjunctivae pink ENT: Present mucous membranes moist and oropharynx clear *Routine Neck Exam Neck: Present supple; Absent carotid bruit, lymphadenopathy or thyromegaly *Routine Respiratory Exam Respiratory: Present CTA bilaterally (Anteriorly and posteriorly) *Routine Cardiovascular Exam Cardiovascular: Present RRR *Routine Abdominal Exam Abdominal: Present soft and normoactive bowel sounds; Absent tenderness *Routine Rectal Exam Rectal:: deferred *Routine Genitalia Exam Genitalia:: deferred *Routine Extremities Exam Extremities: Absent edema or calf tenderness *Routine Neurological Exam Neurological: Present alert and oriented X3 Assessment and Plan *Assessment and plan (1) Near syncope: Status: Acute Category: Medical Code(s): R55 - Syncope and collapse (2) Cardiac dysrhythmia: Status: Acute Category: Medical Code(s): I49.9 - Cardiac arrhythmia, unspecified Plan director of materials management, echo, cardiology consult.
--- NOTE | 2024-11-04 18:22 | XR_ITS ---
PROCEDURE INFORMATION: Exam: XR Chest Exam date and time: 11/04/2024 9:18 PM Age: 69 years old Clinical indication: Other: Near syncope, pvc's; Additional info: Pvc's, near syncope TECHNIQUE: Imaging protocol: Radiologic exam of the chest. Views: 2 views. COMPARISON: CT ABDOMEN PELVIS WO/W CON 05/21/2024 8:00 AM FINDINGS: Lungs: Unremarkable. No consolidation. Pleural spaces: Unremarkable. No pleural effusion. No pneumothorax. Heart/Mediastinum: Unremarkable. No cardiomegaly. Bones/joints: Unremarkable. IMPRESSION: No acute findings.
--- NOTE | 2024-11-04 18:55 | ECG_ITS ---
APPROVED REPORT Exam: Resting ECG HR:66 bpm ECG Measurements Heart Rate 66 AXES MI 160 P 57 QRSd 122 QRS -38 QT 407 T 68 QTc 421 Conclusion SINUS RHYTHM LEFT AXIS DEVIATION [QRS AXIS < -30] LEFT VENTRICULAR HYPERTROPHY AND ST-T CHANGE [VOLTAGE CRITERIA PLUS ST/T ABNORMALITY] POSSIBLE SEPTAL MYOCARDIAL INFARCTION , OF INDETERMINATE AGE [30 ms Q WAVE IN V1/V2] ABNORMAL ECG UNCONFIRMED REPORT Electronically signed by : Kenny Toure MD 11/05/2024 21:06:22
[2024-11-04 19:08] LABS: Basophils # 0.1 K/mm3 (0-0.2); Basophils % 1.1 % (0.1-2.0); Eosinophils # 0.1 K/mm3 (0.0-0.4); Eosinophils % 1.3 % (0.1-12.0); Hematocrit 40.9 % (37.0-47.0); Hemoglobin 13.9 g/dL (12.2-16.2); Lymphocytes % 31.8 % (10-50); Mean Corpuscular Hemoglobin 28.8 pg (27.0-31.2); Mean Corpuscular Volume 84.9 fl (81-99); Mean Platelet Volume 11.6 fl (7.4-10.4); Monocytes # 0.7 K/mm3 (0.1-1.0); Monocytes % 10.5 % (1.7-9.3); Neutrophils # 3.4 K/mm3 (1.8-7.8); Platelet Count 203 K/mm3 (142-424); Red Blood Count 4.82 M/mm3 (4.20-5.40); Red Cell Distribution Width 13.1 % (11.5-17.5); White Blood Count 6.2 K/mm3 (4.8-10.8)
[2024-11-04 19:15] LABS: Albumin Level 5.3 g/dl (3.5-5.0); Chloride 100 mmol/L (98-107)
[2024-11-04 19:16] LABS: Potassium 3.9 mmoL/L (3.5-5.1); Sodium 138 mmol/L (136-145)
[2024-11-04 19:18] LABS: Blood Urea Nitrogen 24 mg/dl (7-17); Creatinine Clearance Estimated 52 mL/min (50-200); Estimated Glomerular Filt Rate 55 ml/min (>60); GFR (African American) 67 ML/MIN (>60)
[2024-11-04 19:19] LABS: Alanine Aminotransferase 42 U/L (12-78); Albumin/Globulin Ratio 1.6 (1.1-1.8); Alkaline Phosphatase 65 U/L (38-126); Anion Gap 10.9 mEq/L (5-15); Aspartate Amino Transferase 46 U/L (14-36); Bilirubin,Total 0.7 mg/dl (0.2-1.3); Calcium 10.3 mg/dl (8.4-10.2); Carbon Dioxide 31 mmol/L (22.0-30.0); Globulin 3.4 g/dL (1.3-3.2); Glucose 95 mg/dl (74-100); Total Protein,Serum 8.7 g/dl (6.3-8.2)
[2024-11-04 19:36] LABS: Creatine Kinase 94 U/L (30-135); Troponin I < 0.01 ng/ml (0.00-0.034)
[2024-11-04 19:37] LABS: Magnesium 1.9 mg/dl (1.6-2.3)
[2024-11-04 19:46] LABS: CKMB Relative Index 1.6 U/L (0-4.0); Creatine Kinase MB 1.5 ng/ml (0.0-2.03); Hemoglobin A1C 5.4 % (4.0-6.0)
[2024-11-04 19:51] LABS: Lactic Acid 0.6 mmol/L (0.7-2.1)
[2024-11-04 19:53] LABS: Thyroid Stimulating Hormone 1.29 uIU/mL (0.465-4.68)
[2024-11-04 19:56] LABS: Troponin I < 0.01 ng/ml (0.00-0.034)
[2024-11-04 20:00] VITALS: BP 137/65; PULSE 70; PULSE 76; RESP 17; TEMP 36.4; O2SAT 98
[2024-11-04] MEDS: ASPIRIN EC 81MG TABLET 81 MG PO (20:15)
--- NOTE | 2024-11-04 21:27 | PC.NURSE ---
Patient left floor with Radiology at 21:25.
--- NOTE | 2024-11-04 21:33 | PC.NURSE ---
Patient returned from floor from Radiology at 21:33.
[2024-11-04 23:55] LABS: Microscopic, Urine URINE MICROSCOPIC (MICROSCOPIC)
[2024-11-05] VITALS (22 sets, daily range): BP systolic 81–131; BP diastolic 50–87; PULSE 59–80; RESP 14–22; TEMP 36.4–36.9; O2SAT 93–99; BMI 24.0
[2024-11-05 00:45] LABS: Appearance,Urine CLEAR (Clear); Bilirubin,Urine Negative (Negative); Blood, Urine Negative (Negative); Color,Urine YELLOW (Yellow); Glucose,Urine (UA) Negative (Negative); Ketones,Urine Negative (Negative); Leukocyte Esterase,Urine Negative (Negative); Nitrate,Urine Negative (Negative); PH,Urine 6.5 (5.0-8.5); Protein,Urine Negative (Negative); Specific Gravity, Urine 1.015 (1.005-1.030); Urobilinogen,Urine 0.2 EU/dl (0.2)
[2024-11-05 01:12] LABS: Bacteria,Urine 1+ /lpf
--- NOTE | 2024-11-05 05:37 | PC.NURSE ---
Pt A&OX4 and has tolerated room air. Lung sounds clear and bowel sounds active. Pt has ambulated room independently. She has remained sinus rhythm with frequent PVC's on tele. She has no complaints at this time, call light within reach.
[2024-11-05 06:41] LABS: Chol/HDL Ratio 2.2 (1-3.5); Cholesterol 115 mg/dl (140-200); HDL Cholesterol 52 mg/dl (40-60); Triglycerides 111 mg/dl (30-150); VLDL Cholesterol 22 mg/dL (0-40)
[2024-11-05 06:52] LABS: Direct LDL Cholesterol 35.18 mg/dL (100-129)
--- NOTE | 2024-11-05 08:08 | EXP.ACUTE.PN ---
Subjective *Date: 11/05/24 *Time: 08:08 Interval history: Patient states she slept probably about 2 to 3 hours during the night. She continues to have some midsternal chest discomfort at times. This is infrequent. She has noticed it her heart skipping. She denies any dizziness. She has been up to the bathroom several times. She has been eating without problems. Medical Exam Vital signs and Labs for Last 24 Hours: Vital Signs Temp Pulse Pulse Resp BP Pulse Ox O2 Del Method 11/05/24 06:57 Room Air 11/05/24 05:00 Room Air 11/05/24 04:00 80 11/05/24 04:00 97.9 F 65 16 117/60 96 Room Air 11/05/24 03:00 Room Air 11/05/24 01:00 Room Air 11/05/24 00:00 70 11/05/24 00:00 97.9 F 75 16 94/50 L 97 Room Air 11/04/24 23:00 Room Air 11/04/24 21:00 Room Air 11/04/24 20:00 Room Air 11/04/24 20:00 70 11/04/24 20:00 97.6 F 76 17 137/65 98 Room Air 11/04/24 19:00 Room Air 11/04/24 17:43 Room Air 11/04/24 17:33 74 11/04/24 17:24 97.6 F 74 20 139/71 96 Room Air Intake and Output 11/04/24 11/05/24 11/05/24 19:59 03:59 11:59 Intake Total 360 / 360 200 / 560 Output Total 0 / 0 0 / 0 Balance 360 / 360 200 / 560 0 / 560 Intake: Intake, Oral Amount 360 / 360 200 / 560 Output: Output, Urine Amount 0 / 0 0 / 0 Other: Number of Unmeasured Voids 1 1 Weight 136 lb 8 oz 136 lb Patient Weight 11/05/24 11:59 Weight 136 lb Laboratory Results - last 24 hr 11/04/24 18:05: WBC 6.2, RBC 4.82, Hgb 13.9, Hct 40.9, MCV 84.9, MCH 28.8, MCHC 34.0, RDW 13.1, Plt Count 203, MPV 11.6 H, Neut % (Auto) 55.0, Lymph % (Auto) 31.8, [place] % (Auto) 10.5 H, Eos % (Auto) 1.3, Baso % (Auto) 1.1, Neut # (Auto) 3.4, Lymph # (Auto) 2.0, [place] # (Auto) 0.7, Eos # (Auto) 0.1, Baso # (Auto) 0.1, Sodium 138, Potassium 3.9, Chloride 100, Carbon Dioxide 31 H, Anion Gap 10.9, BUN 24 H, Creatinine 1.00, Estimated Creat Clear 52, Estimated GFR 55 L, Est GFR ( Amer) 67, Glucose 95, Hemoglobin A1c 5.4, Calcium 10.3 H, Magnesium 1.9, Total Bilirubin 0.7, AST 46 H, ALT 42, Alkaline Phosphatase 65, Total Creatine Kinase 94, CK-MB (CK-2) 1.5, CK-MB (CK-2) Rel Index 1.6, Troponin I < 0.01 11/04/24 18:05: Troponin I < 0.01, Total Protein 8.7 H, Albumin 5.3 H, Globulin 3.4 H, Albumin/Globulin Ratio 1.6, TSH 1.29 11/04/24 19:20: Lactate 0.6 L 11/04/24 23:45: Urine Color Yellow, Urine Appearance Clear, Urine pH 6.5, Ur Specific [place] 1.015, Urine Protein Negative, Urine Glucose (UA) Negative, Urine Ketones Negative, Urine Blood Negative, Urine Nitrate Negative, Urine Bilirubin Negative, Urine Urobilinogen 0.2, Ur Leukocyte Esterase Negative, Urine RBC 3-5, Urine WBC 3-5, Ur Squamous Epith Cells 5-10, Urine Bacteria 1+ 11/05/24 06:10: Triglycerides 111, Cholesterol 115 L, LDL Cholesterol Direct 35.18 L, VLDL Cholesterol 22, HDL Cholesterol 52, Cholesterol/HDL Ratio 2.2 I & O for Labs for Last 24 Hours: Intake & Output 11/02/24 11/03/24 11/04/24 11/05/24 11:59 11:59 11:59 11:59 Intake Total 560 / 560 Output Total 0 / 0 Balance 560 / 560 Weight 136 lb Constitutional: Present no acute distress Respiratory: Present CTA bilaterally (Anteriorly and posteriorly) Cardiac: Present Reg Rate and Rhythm (Monitor showing sinus rhythm with occasional to frequent PVCs unifocal) GI: Present soft and normal bowel sounds; Absent distention or tenderness Extremities: Absent tenderness, edema or calf tenderness Neuro: Present alert, awake and oriented x 3 Assessment and Plan *Assessment and plan (1) Near syncope: Status: Acute Category: Medical Code(s): R55 - Syncope and collapse (2) Cardiac dysrhythmia: Status: Acute Category: Medical Code(s): I49.9 - Cardiac arrhythmia, unspecified (3) Chest discomfort: Status: Acute Category: Medical Code(s): R07.89 - Other chest pain (4) Abnormal EKG: Status: Acute Category: Medical Code(s): R94.31 - Abnormal electrocardiogram [ECG] [EKG] Plan Cholesterol panel is excellent with an LDL of 35. HDL is 52. Renal function with a GFR of 55. TSH is normal at 1.29. CBC with normal H&H. Chest x-ray showed no acute findings. Echocardiogram results are pending. EKG shows sinus rhythm with occasional PVC.; Incomplete right bundle branch block. Left ventricular hypertrophy. Possible septal myocardial infarction probably old. Cardiology to see this a.m.
[2024-11-05 10:03] LABS: D-Dimer 0.45 ug/mL (0.0-0.5)
--- NOTE | 2024-11-05 10:42 | P.CONCA_ITS ---
History of Present Illness History of Present Illness Consult date: 11/05/24 Requesting physician: Ramsey Nye Chief complaint: Near syncope, abnormal Echo Additional Medical History:: 1. Hypertension 2. Hyperlipidemia 3. Memory issues 4. Near syncope, recurrent A. Echo, 11/05/2024, EF 40-45% with septal and anteroseptal hypokinesis, moderate. History of present illness: 69 yo WF with history of HTN and HLD with family history of CAD in father admitted from Dr. Nye's office for recurrent near syncope along with frequent ectopy on exam. She does relate some recent diarrhea due to antibiotics for dental issues. Pt denies any exertional chest pain, pressure or tightness. Initial troponins normal and EKG is sinus had 66 bpm with LAD, LVH and possible septal WA of indeterminate age. No appreciable acute ST segment changes. Cardiology consulted for evaluation recommendations. Patient denies any prior cardiac history. Non-smoker. Nondiabetic. PFSH PFS Disclaimer: The information contained in this section may have been updated after the patient was seen, as this information can be updated by other users. Medical History (Updated 11/05/24 @ 10:53 by EVELIN Veliz) Diverticulosis Chronic cystitis Rheumatoid arthritis Osteoporosis Hypertension Surgical History H/O excision of ganglion cyst H/O tubal ligation History of tonsillectomy History of hysterectomy History of cholecystectomy Family History (Updated 11/04/24 @ 17:43 by Betzaida Lindsay) Father Brain cancer Family history of myocardial infarction Social History Smoking Status: Never smoker alcohol intake: never current occupational status: other Travel in the last 8 weeks: None Have you lived/traveled outside [place] in past 30 days?: No Contact w/someone who lives/traveled outside US past 30 days?: No Exposure to someone with infectious disease in past 14 days?: No Do you have a fever (greater than 100.4 F or 38 C)?: No Have you tested positive for COVID-19: No Exposed to someone with COVID-19 in past 14 days?: No Do you have a sore throat?: No Do you have a cough?: No Do you have any weakness?: No Do you have any diarrhea?: No Are you experiencing any unusual bleeding?: No Do you have any muscle aches/pain?: No Do you have any abdominal pain?: No Are you experiencing loss of taste or smell?: No Review of Systems Review of Systems Review of systems:: pertinent systems reviewed and negative unless documented below Constitutional Constitutional: Denies frequent falls and Denies headache(s) ENT Ears, Nose, Mouth, and Throat: Reports dizziness and Denies headache(s) *Cardiovascular Cardiovascular: Reports palpitations and Reports syncope (Near fainting) *Musculoskeletal Musculoskeletal: Denies abnormal gait *Neurologic Neurologic: Denies abnormal gait, Denies abnormal movements, Denies abnormal speech, Reports dizziness, Denies frequent falls, Denies headache(s) and Reports syncope (Near fainting) Endocrine Endocrine: Reports palpitations Exam Data for Last 24 hours Vital signs and Labs for Last 24 Hours: Temp Pulse Resp BP Pulse Ox O2 Del Method 97.5 F L 72 15 124/74 93 L Room Air 11/05/24 08:00 11/05/24 08:00 11/05/24 08:00 11/05/24 08:00 11/05/24 08:00 11/05/24 09:00 Laboratory Results - last 24 hr 11/04/24 18:05: WBC 6.2, RBC 4.82, Hgb 13.9, Hct 40.9, MCV 84.9, MCH 28.8, MCHC 34.0, RDW 13.1, Plt Count 203, MPV 11.6 H, Neut % (Auto) 55.0, Lymph % (Auto) 31.8, [place] % (Auto) 10.5 H, Eos % (Auto) 1.3, Baso % (Auto) 1.1, Neut # (Auto) 3.4, Lymph # (Auto) 2.0, [place] # (Auto) 0.7, Eos # (Auto) 0.1, Baso # (Auto) 0.1, Sodium 138, Potassium 3.9, Chloride 100, Carbon Dioxide 31 H, Anion Gap 10.9, BUN 24 H, Creatinine 1.00, Estimated Creat Clear 52, Estimated GFR 55 L, Est GFR ( Amer) 67, Glucose 95, Hemoglobin A1c 5.4, Calcium 10.3 H, Magnesium 1.9, Total Bilirubin 0.7, AST 46 H, ALT 42, Alkaline Phosphatase 65, Total Creatine Kinase 94, CK-MB (CK-2) 1.5, CK-MB (CK-2) Rel Index 1.6, Troponin I < 0.01 11/04/24 18:05: Troponin I < 0.01, Total Protein 8.7 H, Albumin 5.3 H, Globulin 3.4 H, Albumin/Globulin Ratio 1.6, TSH 1.29 11/04/24 19:20: Lactate 0.6 L 11/04/24 23:45: Urine Color Yellow, Urine Appearance Clear, Urine pH 6.5, Ur Specific [place] 1.015, Urine Protein Negative, Urine Glucose (UA) Negative, Urine Ketones Negative, Urine Blood Negative, Urine Nitrate Negative, Urine Bilirubin Negative, Urine Urobilinogen 0.2, Ur Leukocyte Esterase Negative, Urine RBC 3-5, Urine WBC 3-5, Ur Squamous Epith Cells 5-10, Urine Bacteria 1+ 11/05/24 06:10: Triglycerides 111, Cholesterol 115 L, LDL Cholesterol Direct 35.18 L, VLDL Cholesterol 22, HDL Cholesterol 52, Cholesterol/HDL Ratio 2.2 11/05/24 09:40: D-Dimer 0.45 I & O for Last 24 hours: Intake & Output 11/02/24 11/03/24 11/04/24 11/05/24 11:59 11:59 11:59 11:59 Intake Total 780 / 780 Output Total 0 / 0 Balance 780 / 780 Weight 136 lb Constitutional Constitutional: no acute distress *Routine Respiratory Exam Respiratory: Present CTA bilaterally *Routine Cardiovascular Exam Cardiovascular: Present RRR; Absent murmur, gallop or rubs *Routine Extremities Exam Extremities: Absent edema *Routine Neurological Exam Neurological: Present alert, oriented X3 and CN II-XII intact Meds Home Medications and Allergies Home Medications ?Medication ?Instructions ?Recorded ?Confirmed ?Type potassium chloride 10 mEq 10 meq PO BID 07/06/20 11/05/24 History capsule,extended release raloxifene 60 mg tablet 60 mg PO DAILY 07/06/20 11/04/24 History triamterene 37.5 1 each PO DAILY 07/06/20 11/04/24 History mg-hydrochlorothiazide 25 mg tablet amoxicillin 500 mg-potassium 500 tab PO TID 11/04/24 11/04/24 History clavulanate 125 mg tablet donepezil 5 mg tablet 5 mg PO HS 11/04/24 11/04/24 History duloxetine 30 mg capsule,delayed 30 mg PO DAILY 11/04/24 11/04/24 History release leflunomide 20 mg tablet 20 mg PO DAILY 11/04/24 11/04/24 History pramipexole 0.125 mg tablet 0.125 mg PO HS 11/04/24 11/04/24 History trazodone 50 mg tablet 50 mg PO HS 11/04/24 11/04/24 History rosuvastatin 20 mg tablet 20 mg PO HS 11/05/24 11/05/24 History New Prescriptions to Start Prescriptions: Allergies Allergy/AdvReac Type Severity Reaction Status Date / Time fentanyl (FENTANYL) Allergy Unknown Verified 01/09/23 09:06 tolmetin (TOLMETIN) Allergy Unknown Verified 01/09/23 09:06 Assessment and Plan *Assessment and plan (1) Near syncope: Status: Acute Category: Medical Code(s): R55 - Syncope and collapse (2) Cardiac dysrhythmia: Status: Acute Qualifiers: Arrhythmia type: other cardiac arrhythmia Qualified Code(s): I49.8 - Other specified cardiac arrhythmias Category: Medical Code(s): I49.9 - Cardiac arrhythmia, unspecified (3) Hypertension: Status: Acute Qualifiers: Hypertension type: primary hypertension Qualified Code(s): I10 - Essential (primary) hypertension Category: Medical Code(s): I10 - Essential (primary) hypertension (4) Abnormal EKG: Status: Acute Category: Medical Code(s): R94.31 - Abnormal electrocardiogram [ECG] [EKG] (5) Diarrhea: Status: Acute Qualifiers: Diarrhea type: unspecified type Qualified Code(s): R19.7 - Diarrhea, unspecified Category: Medical Code(s): R19.7 - Diarrhea, unspecified (6) Abnormal echocardiogram: Status: Acute Category: Medical Code(s): R93.1 - Abnormal findings on diagnostic imaging of heart and coronary circulation Plan 1. Near syncope with PAC's and PVC's in setting of abnormal EKG and recent diarrhea -abnormal echo with reduced EF at 40-45% with septal and anteroseptal hypokinesis -troponins normal -[facility] today -start entresto 24/26 mg BID after [facility] 2. HTN -controlled 3. Diarrhea associated with Augmentin for dental issues -mildy elevated BUN 4. Abnormal EKG with history of PAC's/PVC's -Holter, 11/2019 5. Hyperlipidemia -on statin -LDL 35 [facility] today Stop maxzide Start Entresto for cardiomyopathy [facility] results: The left main artery Normal The left anterior descending artery Proximally normal with mild mid vessel 10% luminal regularities The circumflex artery Nondominant normal The right coronary artery Dominant with a long tubular 20% distal stenosis The CA ventriculogram reveals Normal 60% The left ventricular end-diastolic pressure 15 mmHg IMPRESSION Mild nonflow limiting coronary disease Normal ejection fraction Normal LVEDP PLAN 1. Medical management Electronically signed by : Jeremie Ruvalcaba MD 11/05/2024 14:18:01 Restart home meds minus potassium and maxzide. Add aspirin 81 mg daily for CAD Start entresto 24/26 mg BID for cardiomyopathy Hold beta conchita for now to see how she responds to entresto and to allow monitoring of possible arrhythmias. Restoril for restless leg syndrome Possible discharge later tonight. Recommend 30 day event monitor on discharge to look for arrhyhmias. Follow up in office in 1 wk.
--- NOTE | 2024-11-05 10:54 | IR_ITS ---
APPROVED REPORT Patient Location: Inpatient Outpatient Nuclear Operations Specialist: SOL Rodríguez RT (R) PROCEDURES Left heart catheterization Left ventriculogram Selective coronary angiogram INDICATION Unstable angina, Abnormal echocardiogram with regional wall motion abnormality, Syncope, Informed consent was obtained prior to the procedure. TECHNIQUE One percent lidocaine used to anesthetize the right anterior aspect of the wrist. The right radial artery was accessed via the Seldinger technique. A 6 [place] sheath was placed in the right radial artery. 2.5 mg of Verapamil, 800 mcg of nitroglycerin, 1mg Lidocaine and 5000 U Heparin were given through the arterial sheath. The papa catheter was also used to perform left heart catheterization, left ventriculogram and selective coronary angiogram. At the end of the procedure the sheath was removed good hemostasis was achieved using Traclet band, patient was transferred to the postop holding area in stable condition. ANGIOGRAPHIC RESULTS The left main artery Normal The left anterior descending artery Proximally normal with mild mid vessel 10% luminal regularities The circumflex artery Nondominant normal The right coronary artery Dominant with a long tubular 20% distal stenosis The CA ventriculogram reveals Normal 60% The left ventricular end-diastolic pressure 15 mmHg IMPRESSION Mild nonflow limiting coronary disease Normal ejection fraction Normal LVEDP PLAN 1. Medical management Electronically signed by : Jeremie Ruvalcaba MD 11/05/2024 14:18:01
[2024-11-05] MEDS: diphenhydrAMINE 50MG/ML VIAL 50 MG IV (13:39)
[2024-11-05] MEDS: LIDOCAINE 1% 10ML MDV 20 ML IJ (13:40)
[2024-11-05] MEDS: HEPARIN 1,000 UNITS/ML 10ML VIAL (CATH LAB) 10000 UNIT IV (13:40)
[2024-11-05] MEDS: VERAPAMIL 2.5MG/ML 2ML VIAL 2.5 MG IV (13:40)
[2024-11-05] MEDS: NITROGLYCERIN 800MCG/8ML SYR (CATH LAB) 800 MCG IA (13:41)
[2024-11-05] MEDS: 0.9 % SODIUM CHLORIDE 500 ML 25 ML IV (13:41)
[2024-11-05] MEDS: HEPARIN 1,000 UNITS/500ML NS (CATH LAB) 3000 UNIT IV (13:41)
[2024-11-05] MEDS: PROPOFOL 10MG/ML 20ML VIAL 100 MG IV (14:09)
[2024-11-05] MEDS: MIDAZOLAM HCL 1MG/ML 5ML VIAL 1 MG IV (14:09)
[2024-11-05] MEDS: IOPAMIDOL-370 (76%);100ML BOTTLE 60 ML IV (14:35)
[2024-11-05] MEDS: TEMAZEPAM 15MG CAPSULE 15 MG PO (16:01)
--- NOTE | 2024-11-05 17:38 | PC.NURSE ---
Pt alert and oriented x4. Left heart cath was preformed today, pt received no stents. Radial band slowly removed and dressing in place. 2+ pulses in pulse points. No bleeding from site. VSS. When arriving back from procedure she was very anxious and was experiencing restless legs. Sang Casper with cardiology came to see pt while this was happening and ordered a one time dose of Restoril which was given per MAR and effective for pt, he also restarted pt home meds. Home meds were given to pharmacy for labeling and placed in the omni. Pt placed back on cardiac diet and tolerating well. Pt now resting in bed with eyes closed, call light in reach.
--- NOTE | 2024-11-05 18:28 | CA_ITS ---
APPROVED REPORT EXAM: Comprehensive 2D, Doppler, and color-flow Echocardiogram Brand Strategist: Delfina Reyna, SUSANNA, RVS Ht: 5 ft 3 in Wt: 136lbs BSA: 1.64 BP: 139/71 mmHg Indications: Near syncope, Arrythmia, Abn EKG, CP, HTN 2D Dimensions Left Atrium 2.48 cm M-Mode Dimensions RVDd 1.61 cm (0.9-2.6) LA Diam 2.94 cm (1.9-4.0) LVDd 4.84 cm (3.5-5.7) LVDs 3.63 cm (3.5-5.7) IVSd 1.04 cm (0.6-1.1) PWd 0.91 cm (0.6-1.1) EF (Teich) 49.40% EPSs 0.71 cm FS 25.00% EDV (Teich) 109.60 mL TAPSE 1.48 (<1.7) ESV (Teich) 55.50 mL LV Diastology E Decel Time 213 (160-240 msec) E/A Ratio 0.91 MED A' 13.50 cm/s LAT A' 10.00 cm/s Aortic Valve ROB Index 0.86 cm2/m2 AoV Peak Burton. 150.0 (50-130 cm/s) AO Peak GR. 9.00 mmHg AO Mean GR. 4.50 (<5 mmHg) AO VTI 32.2 (18-25 cm) ROB (VTI) 1.45 (2.5-4.5 cm2) Mitral Valve MV A Velocity 77.0 (40-130 cm/s) E/A Ratio 0.91 Tricuspid Valve TR P. Velocity 213.00 cm/s RAP Estimate 10.00 mmHg RVSP 28.20 mmHg Left Ventricle The left ventricle is normal size. The left ventricular systolic function is mildly reduced. There is normal left ventricular wall thickness. There is mild global hypokinesis. There is moderate hypokinesis of the septal, and anteroseptal LV dong. The left ventricular diastolic function is normal. LVEF is 40-45%. Right Ventricle The right ventricle is normal size. The right ventricular systolic function is normal. Atria The left atrium size is normal. The right atrium size is normal. There is no Doppler evidence of interatrial shunt. Aortic Valve The aortic valve opens well. There is no aortic valvular stenosis. No aortic regurgitation is present. Mitral Valve The mitral valve is normal in structure. No evidence of mitral valve stenosis. There is no mitral valve regurgitation noted. Tricuspid Valve Tricuspid valve is grossly normal in structure and function. Mild tricuspid regurgitation. RVSP is 20-25 mmHg. Trace pulmonic regurgitation. Pulmonic Valve The pulmonary valve is normal in structure. Great Vessels The aortic root is normal in size. IVC is normal in size and collapses >50% with inspiration. Pericardium There is no pericardial effusion. Other Information Study Quality: Fair Conclusion Mildly reduced LV systolic function (LVEF 40-45%). Moderate hypokinesis of the septal, and anteroseptal LV dong. Mild TR. Electronically signed by : Noelle Foss MD 11/05/2024 09:52:04
[2024-11-05] MEDS: TRAZODONE 50MG TABLET 50 MG PO (20:59)
[2024-11-05] MEDS: DONEPEZIL 5MG TAB 5 MG PO (20:59)
[2024-11-05] MEDS: ATORVASTATIN 40MG TABLET 40 MG PO (20:59)
[2024-11-05] MEDS: ASPIRIN EC 81MG TABLET 81 MG PO (20:59)
[2024-11-05] MEDS: SACUBITRIL/VALSARTAN 24-26MG TABLET 1 EACH PO (20:59)
[2024-11-06] VITALS: BP 106/63; PULSE 60; PULSE 65; RESP 14; TEMP 36.7; O2SAT 96
[2024-11-06 04:00] VITALS: BP 104/60; PULSE 67; PULSE 70; RESP 17; TEMP 37.6; O2SAT 95; BMI 24.0
--- NOTE | 2024-11-06 04:19 | PC.NURSE ---
Addendum entered by Siobhan Garcia RN 11/06/24 04:27: Normal sinus rhythm with occasional PVCs noted on telemetry. Original Note: Patient is pleasantly alert and oriented. She was observed to have eyes closed, respirations even and unlabored on room air, and no apparent distress throughout the night. Post-angio assessments and vital sign assessments were completed this shift. Right radial cath site remains dressed with sterile gauze and tegaderm; +2 pulses, no other abnormalities nor pain within the site. Patient understands to avoid putting pressure on her right wrist. She has not had any further complaints of restless legs thus far. Soft blood pressures noted this shift. Auscultation of her heart, lungs, and bowels were within normal findings. Scheduled medications were administered as appropriately per OCT. Patient ambulates independently without difficulties at baseline. At this time, the patient is resting in bed without any further complaints. No acute changes noted thus far. Call light within reach. Home medications secured in OMNI drawer.
[2024-11-06 07:26] VITALS: BP 118/70; PULSE 74; RESP 14; TEMP 36.6; O2SAT 99
[2024-11-06 08:00] VITALS: PULSE 70
--- NOTE | 2024-11-06 08:32 | P.PN_ITS ---
Subjective *Date: 11/06/24 *Time: 08:32 Interval history: Patient is feeling a little better today. She still has some dizziness and what she thinks now may be heartburn or esophageal irritation. She slept well and denies any other pain. Medical Exam Vital signs and Labs for Last 24 Hours: Vital Signs Temp Pulse Pulse Resp BP Pulse Ox O2 Del Method 11/06/24 07:40 Room Air 11/06/24 07:26 97.8 F 74 14 118/70 99 Room Air 11/06/24 06:40 Room Air 11/06/24 05:00 Room Air 11/06/24 04:00 99.6 F 67 17 104/60 L 95 Room Air 11/06/24 04:00 70 11/06/24 03:00 Room Air 11/06/24 01:00 Room Air 11/06/24 00:00 60 11/06/24 00:00 98.1 F 65 14 106/63 L 96 Room Air 11/05/24 23:00 Room Air 11/05/24 21:30 63 18 98/54 L 95 Room Air 11/05/24 21:00 Room Air 11/05/24 20:30 98.1 F 63 16 98/59 L 96 Room Air 11/05/24 20:00 60 16 95 Room Air 11/05/24 20:00 60 11/05/24 19:56 98.4 F 63 14 98/59 L 96 Room Air 11/05/24 19:30 71 18 104/57 L 98 Room Air 11/05/24 18:30 64 18 103/63 L 98 11/05/24 18:28 Room Air 11/05/24 17:30 69 22 97 Room Air 11/05/24 17:00 Room Air 11/05/24 17:00 59 L 20 104/65 L 99 Room Air 11/05/24 16:30 60 20 101/59 L 98 Room Air 11/05/24 16:00 60 11/05/24 16:00 65 19 96/59 L 97 Room Air 11/05/24 15:30 64 22 102/65 L 97 Room Air 11/05/24 15:15 60 81/60 L 96 11/05/24 15:00 63 18 91/52 L 93 L Room Air 11/05/24 15:00 Room Air 11/05/24 14:45 98.3 F 67 20 127/58 L 94 L Room Air 11/05/24 14:30 75 20 131/85 98 11/05/24 14:25 75 20 130/87 98 11/05/24 14:20 71 20 127/56 L 96 11/05/24 14:15 77 70 20 101/70 L 95 Room Air 11/05/24 13:00 Room Air 11/05/24 12:00 80 11/05/24 11:00 Room Air 11/05/24 09:00 Room Air Intake and Output 11/05/24 11/06/24 11/06/24 19:59 03:59 11:59 Intake Total 240 / 360 120 / 360 Output Total 0 / 0 Balance 240 / 360 120 / 360 Intake: Intake, Oral Amount 240 / 360 120 / 360 Output: Output, Urine Amount 0 / 0 Other: Number of Unmeasured Voids 1 Weight 136 lb 0.015 oz Patient Weight 11/06/24 11:59 Weight 136 lb 0.015 oz Laboratory Results - last 24 hr 11/05/24 09:40: D-Dimer 0.45 I & O for Labs for Last 24 Hours: Intake & Output 11/03/24 11/04/24 11/05/24 11/06/24 11:59 11:59 11:59 11:59 Intake Total 780 / 780 360 / 360 Output Total 0 / 0 0 / 0 Balance 780 / 780 360 / 360 Weight 136 lb 136 lb 0.015 oz Constitutional: Present no acute distress Respiratory: Present CTA bilaterally (Anteriorly and posteriorly) Cardiac: Present Reg Rate and Rhythm (Monitor showing sinus rhythm with occasional to frequent PVCs unifocal) GI: Present soft and normal bowel sounds; Absent distention or tenderness Extremities: Absent tenderness, edema or calf tenderness Skin: Present intact Neuro: Present alert, awake and oriented x 3 Assessment and Plan *Assessment and plan (1) Near syncope: Status: Acute Category: Medical Code(s): R55 - Syncope and collapse (2) Cardiac dysrhythmia: Status: Acute Qualifiers: Arrhythmia type: other cardiac arrhythmia Qualified Code(s): I49.8 - Other specified cardiac arrhythmias Category: Medical Code(s): I49.9 - Cardiac arrhythmia, unspecified (3) Chest discomfort: Status: Acute Category: Medical Code(s): R07.89 - Other chest pain (4) Abnormal EKG: Status: Acute Category: Medical Code(s): R94.31 - Abnormal electrocardiogram [ECG] [EKG] (5) Hypertension: Status: Acute Qualifiers: Hypertension type: primary hypertension Qualified Code(s): I10 - Essential (primary) hypertension Category: Medical Code(s): I10 - Essential (primary) hypertension (6) Diarrhea: Status: Acute Qualifiers: Diarrhea type: unspecified type Qualified Code(s): R19.7 - Diarrhea, unspecified Category: Medical Code(s): R19.7 - Diarrhea, unspecified (7) Abnormal echocardiogram: Status: Acute Category: Medical Code(s): R93.1 - Abnormal findings on diagnostic imaging of heart and coronary cir culation Plan Patient had a heart cath yesterday which showed mild nonflow limiting disease. Cardiology recommended medical management. May need a PPI with GI f/u at discharge due to GERD/esophageal symptoms. Cardiology to follow and will discuss further care with Dr. Nye.
[2024-11-06] MEDS: DULOXETINE 30MG CAPSULE.DR 30 MG PO (08:33)
[2024-11-06] MEDS: SACUBITRIL/VALSARTAN 24-26MG TABLET 1 EACH PO (08:33)
--- NOTE | 2024-11-06 11:17 | EXP.CARD.PN ---
Subjective Subjective Date: 11/06/24 Time: 11:18 Principal diagnosis: near syncope Interval history: 69-year-old white female in bed in no acute distress. Patient still has some substernal discomfort for which PPI has been prescribed. I did review the results of her echocardiogram showing slightly reduced EF at 45% but with cath showing no significant coronary artery disease. Exam Data for Last 24 hours Vital signs and Labs for Last 24 Hours: Temp Pulse Resp BP Pulse Ox O2 Del Method 97.8 F 70 14 118/70 99 Room Air 11/06/24 07:26 11/06/24 08:00 11/06/24 07:26 11/06/24 07:26 11/06/24 07:26 11/06/24 09:00 I & O for Last 24 hours: Intake & Output 11/03/24 11/04/24 11/05/24 11/06/24 11:59 11:59 11:59 11:59 Intake Total 780 / 780 640 / 640 Output Total 0 / 0 0 / 0 Balance 780 / 780 640 / 640 Weight 136 lb 136 lb 0.015 oz Constitutional Constitutional: no acute distress *Routine Respiratory Exam Respiratory: Present CTA bilaterally *Routine Cardiovascular Exam Cardiovascular: Present RRR; Absent murmur, gallop or rubs Progress Note: A&P Assessment and plan (1) Near syncope: Status: Acute (2) Cardiac dysrhythmia: Status: Acute (3) Chest discomfort: Status: Acute (4) Abnormal EKG: Status: Acute (5) Hypertension: Status: Acute (6) Diarrhea: Status: Acute (7) Abnormal echocardiogram: Status: Acute Assessment and Plan Assessment and Plan for All Diagnoses:: 1. Near syncope with PAC's and PVC's in setting of abnormal EKG and recent diarrhea -abnormal echo with reduced EF at 40-45% with septal and anteroseptal hypokinesis -troponins normal -LHC showed no significant CAD -start entresto 24/26 mg BID after C 2. HTN -controlled 3. Diarrhea associated with Augmentin for dental issues -mildy elevated BUN 4. Abnormal EKG with history of PAC's/PVC's -Holter, 11/2019 5. Hyperlipidemia -on statin -LDL 35 Clinically stable from a cardiac standpoint for discharge home. 30-day event monitor to be applied at discharge. Follow-up in [address] Drake. Home medication recommendations: Restart home meds minus potassium and maxzide. Add aspirin 81 mg daily for CAD Start entresto 24/26 mg BID for cardiomyopathy Hold beta conchita for now to see how she responds to entresto and to allow monitoring of possible arrhythmias.
--- NOTE | 2024-11-07 12:19 | SW/DCPLANNER ---
Spoke with patient on the phone. Patient stated that she is doing well. Patient stated that she is aware of her upcoming appointments. Patient stated that she had no new medicine. Patient stated that she has no concerns or questions at this time. Yasmin Rashid
--- NOTE | 2024-11-13 15:09 | P.DS_ITS ---
General Admission date:: 11/04/24 Discharge date: 11/06/24 HPI HPI HPI: Ms. España is a 69-year-old female with a history of diverticulosis, chronic cystitis, abnormal EKG with left anterior fascicular block, hypertension, rheumatoid arthritis, essential hypertension, memory loss, near syncope. Who presented to the office of [facility] for follow-up on insomnia. She has recently been started on sleeping med. She noted having crazy dreams when she went to sleep. She was also noted to be in Augmentin 3 times a day for dental work. She has recently had some visual changes for the past 2 weeks which she describes as white circles on her lateral vision. With exam she was found to have frequent ectopics. Previous EKG showed cardiac arrhythmia she was thus admitted due to a near syncopal episode with dizziness at home. She has had some midsternal chest discomfort but denies any shortness of breath. She sometimes has a cough but has not had any other upper respiratory symptoms or fever. She was thus admitted for further evaluation and treatment. Hospital Course Hospital Course Hospital Course: The patient was started on a mothers helper and an echo and cardiology consult were ordered. She was seen by cardiology and her echo was abnormal with a reduced EF of 40 to 45% with septal and anteroseptal hypokinesis. They started the patient on Entresto 24/26 mg twice daily and did a heart cath. They also started on Maxide. Her heart cath showed mild nonflow limiting coronary disease with a normal EF and a normal LVEDP. They recommended medical management as well as a 30-day event monitor. The patient did feel better by 11/06/2024. She still had some dizziness and also had what she thought was esophageal irritation. It was felt she could be discharged and may need to follow-up with GI due to her esophageal symptoms. She will also follow-up with Dr. Nye and cardiology. Exam Data for Last 24 hours Vital signs and Labs for Last 24 Hours: Temp Pulse Resp BP Pulse Ox O2 Del Method 97.8 F 70 14 118/70 99 Room Air 11/06/24 07:26 11/06/24 08:00 11/06/24 07:26 11/06/24 07:26 11/06/24 07:26 11/06/24 11:00 Narrative: Constitutional Constitutional: no acute distress *Routine HEENT Exam Head: Present normocephalic and atraumatic Eye: Present PERRL; Absent conjunctival icterus, scleral injection or conjunctivae pink ENT: Present mucous membranes moist and oropharynx clear *Routine Neck Exam Neck: Present supple; Absent carotid bruit, lymphadenopathy or thyromegaly *Routine Respiratory Exam Respiratory: Present CTA bilaterally (Anteriorly and posteriorly) *Routine Cardiovascular Exam Cardiovascular: Present RRR *Routine Abdominal Exam Abdominal: Present soft and normoactive bowel sounds; Absent tenderness *Routine Rectal Exam Rectal:: deferred *Routine Genitalia Exam Genitalia:: deferred *Routine Extremities Exam Extremities: Absent edema or calf tenderness *Routine Neurological Exam Neurological: Present alert and oriented X3 DS: Diagnosis Discharge Diagnosis (1) Near syncope: Status: Acute Code(s): R55 - Syncope and collapse (2) Cardiac dysrhythmia: Status: Acute Code(s): I49.9 - Cardiac arrhythmia, unspecified Qualifiers: Arrhythmia type: other cardiac arrhythmia Qualified Code(s): I49.8 - Other specified cardiac arrhythmias (3) Chest discomfort: Status: Acute Code(s): R07.89 - Other chest pain (4) Abnormal EKG: Status: Acute Code(s): R94.31 - Abnormal electrocardiogram [ECG] [EKG] (5) Hypertension: Status: Acute Code(s): I10 - Essential (primary) hypertension Qualifiers: Hypertension type: primary hypertension Qualified Code(s): I10 - Essential (primary) hypertension (6) Diarrhea: Status: Acute Code(s): R19.7 - Diarrhea, unspecified Qualifiers: Diarrhea type: unspecified type Qualified Code(s): R19.7 - Diarrhea, unspecified (7) Abnormal echocardiogram: Status: Acute Code(s): R93.1 - Abnormal findings on diagnostic imaging of heart and coronary circulation Meds Home Medications and Allergies Home Medications ?Medication ?Instructions ?Recorded ?Confirmed ?Type raloxifene 60 mg tablet 60 mg PO DAILY 07/06/20 11/13/24 History donepezil 5 mg tablet 5 mg PO HS 11/04/24 11/13/24 History duloxetine 30 mg capsule,delayed 30 mg PO DAILY 11/04/24 11/13/24 History release leflunomide 20 mg tablet 20 mg PO DAILY 11/04/24 11/13/24 History pramipexole 0.125 mg tablet 0.125 mg PO HS 11/04/24 11/13/24 History trazodone 50 mg tablet 50 mg PO HS 11/04/24 11/13/24 History rosuvastatin 20 mg tablet 20 mg PO HS 11/05/24 11/13/24 History aspirin 81 mg tablet,delayed 81 mg PO DAILY #30 tabs 11/13/24 11/13/24 Rx release (Adult Low Dose Aspirin) dapagliflozin propanediol 10 mg 10 mg PO DAILY #30 tabs 11/13/24 11/13/24 Rx tablet (Farxiga) New Prescriptions to Start Prescriptions: Allergies Allergy/AdvReac Type Severity Reaction Status Date / Time fentanyl (FENTANYL) Allergy Unknown Verified 11/13/24 13:54 tolmetin (TOLMETIN) Allergy Unknown Verified 11/13/24 13:54 Discharge Plan Disposition Patient Disposition: Home, Self-Care Condition: Good Follow up Plan Follow up with: Ramsey Nye MD [Primary Care Provider] - 11/14/24 3:00 pm Jeremie Ruvalcaba MD [Staff Physician] - 11/12/24 1:00 am Prescriptions/Medication Reconciliation: Continued raloxifene 60 MG tablet 60 mg PO DAILY donepezil 5 mg tablet 5 mg PO HS trazodone 50 mg tablet 50 mg PO HS Patient Comments: TAKE ONE TABLET BY MOUTH AT BEDTIME NEEDED leflunomide 20 mg tablet 20 mg PO DAILY Patient Comments: TAKE ONE TABLET BY MOUTH EVERY DAY pramipexole 0.125 mg tablet 0.125 mg PO HS Patient Comments: TAKE ONE TABLET BY MOUTH EVERY NIGHT AT BEDTIME duloxetine 30 mg capsule,delayed release(DR/EC) 30 mg PO DAILY rosuvastatin 20 mg tablet 20 mg PO HS Discontinued potassium chloride 10 MEQ capsule, extended release 10 meq PO BID triamterene-hydrochlorothiazid 1 EACH tablet 1 each PO DAILY No Action aspirin [Adult Low Dose Aspirin] 81 mg tablet,delayed release (DR/EC) 81 mg PO DAILY Qty: 30 2RF dapagliflozin propanediol [Farxiga] 10 mg tablet 10 mg PO DAILY Qty: 30 2RF Problem Reconciliation Problems Reviewed?: Yes Patient Discharge Instructions ACTIVITY: Continue current activity DIET: advance to your usual diet Patient Instructions: Fainting, Arrhythmias, DI for Cardiac Catheterization, DI for Surgical Site Infection Print Language: [place] Providers Primary Care Provider: Ramsey Nye Admit Provider: Ramsey Nye Attending Provider: Ramsey Nye
== END 2024-11-06 12:21 | disposition home or self-care (01) ==
PROVIDERS: Internal Medicine; Physician Assistant; Admitting Provider Family Medicine; PCP Family Medicine; Visit Provider Family Medicine
DX: I25.110 Atherosclerotic heart disease of native coronary artery with unstable angina pectoris (principal); I44.4 Left anterior fascicular block; R55 Syncope and collapse; R94.31 Abnormal electrocardiogram [ECG] [EKG]; I10 Essential (primary) hypertension; R19.7 Diarrhea, unspecified; K57.90 Diverticulosis of intestine, part unspecified, without perforation or abscess without bleeding; M06.9 Rheumatoid arthritis, unspecified; M81.0 Age-related osteoporosis without current pathological fracture; R05.9 Cough, unspecified; R42 Dizziness and giddiness; N30.20 Other chronic cystitis without hematuria; R93.1 Abnormal findings on diagnostic imaging of heart and coronary circulation; G47.00 Insomnia, unspecified; F06.8 Other specified mental disorders due to known physiological condition; Z79.899 Other long term (current) drug therapy; Z79.2 Long term (current) use of antibiotics; Z88.5 Allergy status to narcotic agent; Z88.8 Allergy status to other drugs, medicaments and biological substances; Z80.8 Family history of malignant neoplasm of other organs or systems; Z82.49 Family history of ischemic heart disease and other diseases of the circulatory system; Z90.49 Acquired absence of other specified parts of digestive tract; Z79.810 Long term (current) use of selective estrogen receptor modulators (SERMs); Z79.69 Long term (current) use of other immunomodulators and immunosuppressants
CPT/HCPCS: 36415; 71046; 80053; 80061; 81001; 82550; 82553; 83036; 83605; 83735; 84443; 84484; 85025; 85378; 93005; 93270; 93272; 93306; 93458; 99152; C1725; C1769; G0378; J1200; J1644; J2250; Q9967

== ENCOUNTER 2024-11-25 10:02 | Outpatient (CLI) | payer MEDICARE, SELFPAY ==
--- NOTE | 2024-11-25 10:30 | MR_ITS ---
APPROVED REPORT Kiln Firer Helper: CLINICAL INDICATION Cardiomyopathy Evalution TECHNIQUE Image Acquisition: Cardiac magnetic resonance (CMR) was performed on Siemens Espree MRI 1.5T scanner. Software platform sequences were performed using the Siemens DemandTec MR B19 platform. A set of three-plane, low-resolution, large aaoih-xh-mvpq localizers were initially acquired. Then axial, coronal, sagittal TrueFISP, as well as axial HASTE images, were obtained. These were followed by gated TrueFISP breathold cinematic sequences obtained in the short axis with 8 mm slices and 2 mm gaps, 2-chamber (vertical long axis), 3-chamber, 4-chamber (horizontal long axis). A bolus of contrast was injected intravenously with first-pass sequences obtained in the short axis and four-chamber planes. After approximately 10 minutes, a TI wire mesh gate assembler sequence was performed to determine the optimal TI time. Using the optimized TI time, delayed contrast enhancement segmented inversion???recovery TurboFLASH sequences were obtained in the short axis, 2-chamber, 3-chamber, and 4-chamber projections. 2D-velocity phase mapping was performed. Functional parameters were calculated by offline analysis on an independent workstation (Codasystem Imaging Platform, [employer]). Contrast: ProHance??? (Gadoteridol) FINDINGS MORPHOLOGY AND FUNCTION Left ventricle: The left ventricle is normal in size. The indexed left ventricular end-diastolic volume (LVEDVi) is 80 ml/m2 (reference range 57-105 ml/m2 in males, 56-96 ml/m2 in females). There is mild reduction in left ventricular systolic function. There is normal left ventricular wall thickness. Mild global hypokinesis is present. The septum is asynchronous. LVEF is calculated at 40.4% (reference range 57-77%). Right ventricle: The right ventricle is normal in size. The indexed right ventricular end-diastolic volume (RVEDVi) is 66 ml/m2 (reference range 61-121 ml/m2 in males, 48-112 ml/m2 in females). Normal right ventricular systolic function is present. RVEF is calculated at 53.3% (reference range 52-72% in males, 51-71% in females). Atria: The left atrium moderately dilated. The maximum indexed left atrial volume is 42 ml/m2 (reference range 26-52 ml/m2 in males, 27-53 ml/m2 in females). The right atrium is mildly dilated. The maximum indexed right atrial volume is 23 ml/m2 (reference range 18-90 ml/m2). Aorta: The diameter of the aortic annulus is normal, measuring 26 mm (coronal view reference range 21-30 mm in males, 19-27 mm in females). The diameter of the aortic sinus is normal, measuring 31 mm (coronal view reference range 25-42 mm in males, 24-36 mm in females). The diameter of the sinotubular junction is normal, measuring 28 mm (coronal view reference range 18-32 mm in males, 18-28 mm in females). The diameters of the ascending and descending thoracic aorta are normal. Main pulmonary artery: The main pulmonary artery diameter is normal. Pericardium: The pericardial thickness is normal. The pericardial thickness measures 1.0 mm (normal < 4.0 mm). There is no pericardial effusion. VALVES The valvular morphologies in the visualized sequences appear normal. There is no significant valvular stenosis or regurgitation of the mitral, aortic, tricuspid, or pulmonic valve noted visually. Systolic anterior motion of the mitral valve is not visualized. Ratio of pulmonary to systemic flow, Qp:Qs ratio = 1.46 (normal < or = 1.20, hemodynamically significant shunt > 1.50), demonstrating no evidence of hemodynamically significant shunt. TISSUE CHARACTERIZATION Resting Perfusion: Normal myocardial blood flow at rest. No evidence of resting hypoperfusion. Myocardial Fibrosis and/or edema: Normal gadolinium kinetics are present. No evidence of late gadolinium enhancement is noted, consistent with absence of myocardial scarring, infarction, or necrosis. T2-weighted imaging demonstrates no evidence of myocardial edema or inflammation. OTHER No other significant findings are noted. However, this exam is focused on the cardiac structure and function. IMPRESSION Normal LV size with mildly reduced LV systolic function. LVEDVi= 80 ml/m2 and LVEF= 40.4%. Asynchronus septum. Normal RV size with normal RV systolic function. RVEDVi= 66 ml/m2 and RVEF= 53.3%. Biatrial enlargement. No CMR evidence of myocardial scarring, infarction, or necrosis. No evidence of myocardial edema or inflammation. Perfusion analysis demonstrates normal blood flow at rest with no evidence of resting hypoperfusion. Ratio of pulmonary to systemic flow, Qp:Qs ratio = 1.46 (normal < or = 1.2, hemodynamically significant shunt > 1.5), demonstrating no evidence of hemodynamically significant shunt. Overall, this CMR demonstrates mild reduction in LV systolic function (LVEF 40.4%) due to idiopathic, non-ischemic cardiomyopathy. No evidence of infiltrative cardiomyopathy or hypertrophic cardiomyopathy. No evidence of prior scarring, necrosis, or infarct. No evidence of myocarditis. GDMT is recommended. COMPARISON None CRITICAL RESULT None COMMUNICATION Per this written report The findings of this cardiac MR were reviewed, reported, and signed by Weston Foss MD (Global Logistics Analyst). Conclusion Electronically signed by : Noelle Foss MD 12/03/2024 14:48:20
[2024-11-25] MEDS: GADOTERIDOL INJ 20ML SYRINGE 14 ML IV (11:05)
[2024-11-25] MEDS: SODIUM CHLORIDE 0.9% 10ML SYR (RAD ONLY) 10 ML IV (11:05)
[2024-11-25] MEDS: 0.9 % SODIUM CHLORIDE 50 ML VIAL 20 ML IV (11:05)
== END 2024-11-25 23:59 | disposition home or self-care (01) ==
LOC: RAD 10:03
PROVIDERS: PCP Family Medicine; Visit Provider Internal Medicine
DX: R93.1 Abnormal findings on diagnostic imaging of heart and coronary circulation (principal); R07.89 Other chest pain; I49.8 Other specified cardiac arrhythmias; R55 Syncope and collapse
CPT/HCPCS: 75561; A9576

== ENCOUNTER 2025-02-17 08:47 | Outpatient (CLI) | payer MEDICARE, SELFPAY ==
--- OUTSIDE RECORDS SUMMARY | 2024-11-14 11:00 | XMS_ITS ---
Author Organization [facility] Address [address] [facility] [address] [phone] Care Team Providers Care Relief Charge Nurse Name Role Phone Kobe Nye Primary Care Provider Allergies Allergen (clinical drug ingredient) Drug/Non Drug Allergy documented on EMR Reaction Allergy Type Onset Date Status fentanyl fentaNYL Unknown Drug Allergy Active tolmetin Tolmetin hives Drug Allergy Active REASON FOR VISIT [facility] Medications Medication SIG (Take, Route, Frequency, Duration) [...] Encounter Location Date Provider Diagnosis [facility] [address] [facility] 36 [facility] [address] [place] [phone] 11/14/2024 Kobe Nye PVC's (premature ventricular contractions) [...] 2 Weeks, Reason: Provider Name:Kobe Clifford er, 05/05/2025 10:00:00 AM, [address] [facility] 36 [facility], [address], [facility] [place], [phone], Progress Notes * KENISHA, DEREKDOB:[birth year] (70 yo F)Acc No.[id number]:11/14/2024 Patient: DEREK GUERRERO Provider: Kobe Nye M.D. :1955 A ge:69 Y S ex:Female Date:11/14/2024 Address:[address] [place] [address] [address] , [id number] Subjective: * Chief Complaints: * 1 . [facility] DC FU. * HPI: H PI: Patient is here today for a Transition of Care Visit. Discharge from the following Facility: H [facility] , Discharge date: ,Date of phone contact following discharge: 11/08/2024 unable to leave message on home phone, 11/08/2024 left 2 messages on mobile number for return call, 11/11/2024 spoke with patient. Pt was seen at [facility] for Cardiac issues. Pt sts that she [...] work, COVID 19 Vaccine Pfizer, 08/03/20, 08/25/2020, Qelckrah-oc-zkts left forearm . * Surgical History: t ubal ligation 06/1988, lap/cholecystectomy 1997, ganglion cyst removal 1998, urologic surgery 1993, hysterectomy vaginal , colonoscopy, Dr. Biswas 12/31/03, skin biopsy from Left arm, Dr. Moss 09/01/2015, Lesion Removal From Tongue -Dr. Banks 11/23/2017, Fubjrfko-lg-dptz left forearm 2014, colonoscopy, Dr. Hart 2009. [...] 80, O2 Sat: 98% on RA, Nurse: [facility], Ht: 62, BMI:25.75. * Examination: G eneral [...] D izziness - R42 3 . B IA 25.0-25.9,adult - Z68.25 Plan: * Treatment: 2. O thers Notes: Discharge summary with available lab/diagnostic imaging results obtained and reviewed. Discharge medication list reconciled. Appropriate counseling provided. Moderate Complexity * Procedure Codes: 9 [address] [place], [address] TRANS CARE MGMT 14 DAY DISCH, 1111F DSCHR MED/CURENT MED MERGE, G2211 Complex e/m visit add on, 3075F SYST BP GE 130 - 139MM HG, 3079F DIAST BP 80-89 MM HG * Follow Up: 2 Weeks * Images: Billing Information: * Visit Code: 60181 Office Visit, Est Pt., Level 3. * Procedure Codes: [address] [place]. [address] TRANS CARE MGMT 14 DAY DISCH. 1111F DSCHR MED/CURENT MED MERGE. G2211 Complex e/m visit add on. 3075F SYST BP GE 130 - 139MM HG. 3079F DIAST BP 80-89 MM HG. * Electronic signature of Kobe Nye MD on 02/17/2025 at 08:51 AM EDT Sign off status: Pending * Provider: Kobe Nye M.D. Date: 0 11/14/2024 Generated for Chon cedeño/Monae/eTransmitting on: 0 02/17/2025 08:51 AM EDT History and Physical Notes * HPI (History of Present Illness) Category Sub-Category Detail Notes Category Not es HPI Patient is here toda y for a Transition of Care Visit. Discharge from the following Facility: [facility] ,Discharge date: 11/06/2024 ,Date of phone contact following discharge: 11/08/2024 unable to leave message on home phone, 11/08/2024 left 2 messages on mobile number for return call, 11/11/2024 spoke with patient. Pt was seen at [facility] for Cardiac issues. Pt sts that she [...]
--- OUTSIDE RECORDS SUMMARY | 2024-12-02 07:00 | XMS_ITS ---
Author Organization [facility] Address [address] [facility] [address] [phone] Care Team Providers Care Exotic Dancer Name Role Phone Kobe Nye Primary Care [...] Encounter Location Date Provider Diagnosis [facility] 36 [facility] [address] [place], [place] [phone] 12/02/2024 Koeb Nye PVC's (premature ventricular contractions) I49.3 and [...] Name:Kobe Clifford er, 05/05/2025 10:00:00 AM, [address] [facility] 36 [facility], [address], [place], [place], [phone], Progress Notes * KENISHA, DEREKDOB:[birth year] (70 yo F)Acc No.[id number]:12/02/2024 Progress Notes Patient: DEREK GUERRERO Provider: Kobe Nye M.D. :1955 A ge:69 Y S ex:Female Date:12/02/2024 Address:[address] [place] [address], [facility] Subjective: * Chief Complaints: * 1 . [...] work, COVID 19 Vaccine Pfizer, 08/03/20, 08/25/2020, Ptoopksr-cr-uqqo left forearm . * Surgical History: t ubal ligation 06/1988, lap/cholecystectomy 1997, ganglion cyst removal 1998, urologic surgery 1993, hysterectomy vaginal , colonoscopy, Dr. Biswas 12/31/03, skin biopsy from Left arm, Dr. Moss 09/01/2015, Lesion Removal From Tongue -Dr. Banks 11/23/2017, Ijcqfyzu-pr-ubrl left forearm 2014, colonoscopy, Dr. Hart 2009. [...] * Images: Billing Information: * Visit Code: 28068 Office Visit, Est Pt., Level 3. * Procedure Codes: G2211 Complex e/m visit add on. 3077F SYST BP = 140 MM HG6 IT. 3080F DIAST BP = 90 MM HG. * Electronic signature of Kobe Nye MD on 02/17/2025 at 08:50 AM EDT Sign off status: Pending * Provider: Kobe Nye M.D. Date: 0 12/02/2024 Generated for Chon cedeño/Monae/Sienna on: 0 02/17/2025 08:50 AM EDT History and Physical Notes * [...]
--- OUTSIDE RECORDS SUMMARY | 2025-01-09 08:15 | XMS_ITS | Encounter Summary ---
Author Organization Healthcare Address [address] [place] [address] Care Team Providers Care Technical Services Consultant Name Role Phone Salo Nye MD Primary Care Provider [phone] Reason for Visit * Reason Comments Tearing, Eye Encounter Details Date Type Department Care Team (Late st Contact Info) Description 01/09/2025 8:15 AM EDT Office Visit [facility] [address] [place] [address] Vladislav Todd MD [address] [address] Corneal deposit of both eyes [...] year old woman initially referred by Dr aWn Radford due to peripheral corneal deposits Both [...] 360 degrees Refraction Wearing Rx Sphere Cylinder [place] Add Right -8.50 +0.25 137 +2.50 Left -9.25 +1.25 151 +2.50 Type: PAL Manifest Refraction (Subjective) Sphere Cylinder [place] Dist VA Add Near VA Right -8.50 [...] elevated Diagnosed with Rheumatoid Arthritis by rheumatology ([place]) October 2021, started on plaquenil butnow off [...] Description 07/15/2025 2:30 PM EST Office Visit [facility] [address] [place] [phone] Vladislav Todd MD [address] [address] documented as of this encounter [...] documented as of this encounter Care Teams Technical Services Consultant Relationship Specialty Start Date End Date Salo Nye MD [address] [place] [address] [place] [id number] PCP - General 12/25/20 documented as of this encounter
--- OUTSIDE RECORDS SUMMARY | 2025-01-09 08:30 | XMS_ITS | Encounter Summary ---
Author Organization Healthcare Address [address] [place] [address] Care Team Providers Care Tonguer Name Role Phone Salo Nye MD Primary Care Provider [phone] Encounter Details Date Type Department Care Team (Late Contact Info) Description 01/09/2025 8:30 AM EDT Ancillary Procedure [facility] [address] [place] [address] Social History Tobacco Use Types Packs/Day Years Used Date Smoking Tobacco: Never Passive Smoke Exposure: Never Smokeless Tobacco: Never Alcohol Use Standard Drinks/Week Comments Yes 0 (1 standard drink = 0.6 oz pure alcohol) Alcoholic Drinks/day: Consumes alcohol occasionally Comments Unknown Sex and Gender Information Value Date Recorded Sex Assigned at Female 09/29/2021 4:46 PM EST Legal Sex Female 7:39 PM EDT Gender Identity Not on file Sexual Orientation Not on file documented as of this encounter Plan of Treatment Upcoming Encounters Date Type Department Care Team (Late Contact Info) Description 07/15/2025 2:30 PM EST Office Visit [facility] [address] [place] [address] Vladislav Todd MD [address] [address] documented as of this encounter [...] quads are full and robust both eyes Vladislav Todd MD OPHTH TOMOGRAPHY Final Result documented in this encounter Visit Diagnoses Not on filedocumented in this encounter Additional Health Concerns Assessment Noted Time A fall risk assessment has been complete d for the patient 05/08/2023 10:07 AM EDT A Body Mass Index follow-up plan has been documented for the patient 01/09/2025 10:13 AM EDT documented as of this encounter Care Teams Tonguer Relationship Specialty Start Date End Date Salo Nye MD [address] [place] [address] [place] [id number] PCP - General 12/25/20 documented as of this encounter
--- OUTSIDE RECORDS SUMMARY | 2025-01-27 07:45 | XMS_ITS ---
Author Organization [facility] Address 1210 [facility] [address] [phone] Care Team Providers Care In Home Nanny Name Role Phone Kobe Nye Primary Care Provider Allergies Allergen (clinical drug ingredient) Drug/Non Drug Allergy documented on EMR Reaction Allergy Type Onset Date Status fentanyl fentaNYL Unknown Drug Allergy Active tolmetin Tolmetin hives Drug Allergy Active Reason For Referral Reason memory loss Diagnosis 1 Memory loss (R41.3) Referral Organization [facility] Referring Provider First Name Kobe Davison Referring Provider Last Name Popeey Referring Provider Speciality Family Pra ctice Referred Provider Specialty Neurology General Notes Kenisha Victoria 2024 02:57:45 PM > faxed to [facility] Neurology Referral Priority Routine REASON FOR VISIT [...] Location Date Provider Diagnosis [facility] [address] [place] [facility] 36 [facility] [address] [place] [phone] 01/27/2025 Kobe Nye Memory loss R41.3 ; [...] Clifford er, 05/05/2025 10:00:00 AM, [address] [place] [facility] 36 [facility], [address], [place], [phone], Progress Notes * DEREK DEDOB:[birth year] (70 yo F)Acc No.[id number]:01/27/2025 Progress Notes Patient: T UCKER, DEREK Provider: Kobe Nye M.D. :1955 A ge:69 Y S ex:Female Date:01/27/2025 Address:[address] [facility] [address], [facility] Subjective: * Chief Complaints: * 1 . [...] work, COVID 19 Vaccine Pfizer, 08/03/20, 08/25/2020, Qfyytcio-mx-twcl left forearm . * Surgical History: t ubal ligation 06/1988, lap/cholecystectomy 1997, ganglion cyst removal 1998, urologic surgery 1993, hysterectomy vaginal , colonoscopy, Dr. Biswas 12/31/03, skin biopsy from Left arm, Dr. Moss 09/01/2015, Lesion Removal From Tongue -Dr. aBnks 11/23/2017, Gdnvhdxa-yj-patj left forearm 2014, colonoscopy, Dr. Hart 2009. [...] (primary) hypertension - I10 3 . B [place] 24.0-24.9, adult - Z68.24 Plan: * Treatment: [...] * Images: Billing Information: * Visit Code: 31778 Office Visit, Est Pt., Level 3. * [...] 01/27/2025 Generated for Chon cedeño/Monae/eTransmitting on: 0 02/17/2025 08:50 AM EDT History [...] Provider Not es 01/27/2025 Kobe Nye , vignesh hernandez
--- OUTSIDE RECORDS SUMMARY | 2025-02-17 08:51 | XMS_ITS | Patient Health Record ---
Author Organization [facility] Address [address] [facility] [address] [id number] Care Team Providers Care Multi Sensor Operator Name Role Phone Kobe Nye Primary Care Provider Rea Vaughn Unavailable [phone] Shanique Blanco Unavailable [phone] Allergies Allergen (clinical drug ingredient) Drug/Non Drug Allergy documented on EMR Reaction Allergy Type Onset Date Status fentanyl fentaNYL Unknown Drug Allergy Active tolmetin Tolmetin hives Drug Allergy Active Results Component Value Reference Range Notes P-Comprehensive Metabolic Pa isabell (CMP) Reviewed date:07/09/2024 03:52:39 PM Interpretation:bun 30 Performing Lab: Notes/Report: Test performed by [facility] [address] [place] [address] , [address], [place] [address] Calin Simmons MD, Property Coordinator CLIA: [id number] Sodium 139 135-145 mmol/L Potassium 3.8 3.5-5.3 [...] 163 Performing Lab: Notes/Report: Test performed by [facility], [address] , [place] [address] Calin Simmons MD, Property Coordinator CLIA: [id number] Cholesterol 258 <200 mg/dL Triglycerides 187 <150 [...] ATPIII guidelines LDL/HDL Ratio 2.8 <3.3 Ratio _ LDL Cholesterol Patient History _ Test Date: 08/24/2023 LDL Results: 115 Units: mg/dL % Change: - - Test Date: 07/08/2024 LDL Results: 163 Units: mg/dL % Change: +41% _ H-BUN/CREAT Reviewed date:05/20/2024 03:13:43 PM Interpretation: Performing Lab: Notes/Report: BUN 28 7-17 mg/dl CREATT 0.90 0.52-1.04 mg/dl GFRAA 75 >60 ML/MIN EGFR 62 >60 ml/min H-Lipid Panel Reviewed date:11/05/2024 09:42:57 AM Interpretation: Performing Lab: Notes/Report: TRIG 111 30-150 mg/dl CHOL 115 140-200 mg/dl DLDL 35.18 100-129 mg/dL VLDL 22 0-40 mg/dL HDL 52 40-60 mg/dl CHLHDL 2.2 1-3.5 H-Cardiac Enzymes Reviewed date:11/05/2024 09:42:57 AM Interpretation: Performing Lab: Notes/Report: CK 94 30-135 U/L CKMB 1.5 0.0-2.03 ng/ml CKMB INDEX 1.6 0-4.0 U/L TROP < 0.01 0.00-0.034 ng/ml <0.012-0.034 ng/mL NORMAL 0.035 - >0.120 ng/mL ELEVATED* *Serial testing recommended. A rise and fall with peak greater than 0.6 ng/mL may indicate acute myocardial infarction, but is not independently diagnostic. Clinical correlation is necessary. *ALERT* High levels of Biotin can falsely depress Troponin results. Many dietary supplements promoted for hair, skin, and nail benefits contain biotin levels up to 650 times the recommended daily intake of biotin. In addition to dietary supplements, Biotin is occasionally prescribed for medical conditions. H-Troponin I Reviewed date:11/05/2024 09:42:57 AM Interpretation: Performing Lab: Notes/Report: TROP < 0.01 0.00-0.034 ng/ml High levels of Biotin can falsely depress Troponin results. Many dietary supplements promoted for hair, skin, and nail benefits contain biotin levels up to 650 times the recommended daily intake of biotin. In addition to dietary supplements, Biotin is occasionally prescribed for medical conditions. <0.012-0.034 ng/mL NORMAL 0.035 - >0.120 ng/mL ELEVATED* *Serial testing recommended. A rise and fall with peak greater than 0.6 ng/mL may indicate acute myocardial infarction, but is not independently diagnostic. Clinical correlation is necessary. *ALERT* H-Lactic Acid Reviewed date:11/05/2024 09:42:57 AM Interpretation: Performing Lab: Notes/Report: Comment Repeat 2nd or 3rd lactic acid to reflex if initial or subseq level > 2 LACTIC 0.6 0.7-2.1 mmol/L H-Magnesium Reviewed date:11/05/2024 09:42:57 AM Interpretation: Performing Lab: Notes/Report: MG 1.9 1.6-2.3 mg/dl H-Glycohemoglobin A1C Reviewed date:11/05/2024 09:42:57 AM Interpretation: Performing Lab: Notes/Report: HGBA1C 5.4 4.0-6.0 % < 6% Non-Diabetic Level < 7% Controlled Diabetic Level > 8% Poorly Controlled Diabetic Level H-CMP Reviewed date:11/05/2024 09:42:57 AM Interpretation: Performing Lab: Notes/Report: NA 138 136-145 mmol/L K 3.9 3.5-5.1 mmoL/L CL 100 98-107 mmol/L CO2 31 22.0-30.0 mmol/L GAP 10.9 5-15 mEq/L BUN 24 7-17 mg/dl CREATT 1.00 0.52-1.04 mg/dl CRCLE 52 50-200 mL/min GFRAA 67 >60 ML/MIN EGFR 55 >60 ml/min GLU 95 74-100 mg/dl CA 10.3 8.4-10.2 mg/dl BILIT 0.7 0.2-1.3 mg/dl AST 46 14-36 U/L ALT 42 12-78 U/L TP 8.7 6.3-8.2 g/dl ALB 5.3 3.5-5.0 g/dl GLOB 3.4 1.3-3.2 g/dL AGRATIO 1.6 1.1-1.8 ALP 65 38-126 U/L H-UA Reviewed date:11/05/2024 09:42:57 AM Interpretation: Performing Lab: Notes/Report: Method to collect specimen catheterized collection UCOL YELLOW Yellow UAPP CLEAR Clear UPH 6.5 5.0-8.5 USG 1.015 1.005-1.030 UPRO Negative Negative UGLU Negative Negative UKET Negative Negative UBLD Negative Negative UNIT Negative Negative UBIL Negative Negative UURO 0.2 0.2 EU/dl ULEU Negative Negative UMICU URINE MICROSCOPIC MICROSCOPIC URBC 3-5 0-3 #/hpf UWBC 3-5 0-3 #/hpf USQEPI 5-10 0-5 #/hpf UBACT 1+ NONE /lpf H-CBC Reviewed date:11/05/2024 09:42:57 AM Interpretation: Performing Lab: Notes/Report: WBC 6.2 4.8-10.8 K/mm3 RBC 4.82 4.20-5.40 M/mm3 HGB 13.9 12.2-16.2 g/dL HCT 40.9 37.0-47.0 % MCV 84.9 81-99 fl MCH 28.8 27.0-31.2 pg MCHC 34.0 31.8-35.4 g/dL RDW 13.1 11.5-17.5 % PLT 203 142-424 K/mm3 MPV 11.6 7.4-10.4 fl NE% 55.0 37.0-80.0 % LY% 31.8 10-50 % MO% 10.5 1.7-9.3 % EO% 1.3 0.1-12.0 % BA% 1.1 0.1-2.0 % NE# 3.4 1.8-7.8 K/mm3 LY# 2.0 0.7-4.5 K/mm3 MO# 0.7 0.1-1.0 K/mm3 EO# 0.1 0.0-0.4 K/mm3 BA# 0.1 0-0.2 K/mm3 H-TSH Reviewed date:11/05/2024 09:42:57 AM Interpretation: Performing Lab: Notes/Report: TSH 1.29 0.465-4.68 uIU/mL BUN, Creatinine Reviewed date:05/20/2024 03:13:31 PM Interpretation: Performing Lab: Notes/Report: EKG Reviewed date:10/11/2024 09:21:57 AM Interpretation:Abnormal Performing Lab: Notes/Report: Abnormal EKG Reviewed date:10/11/2024 09:21:57 AM Interpretation:Abnormal Performing Lab: Notes/Report: Abnormal CT scan : abdomen and pelvis w/ and w/o contrast (urography) Reviewed date:05/22/2024 02:16:09 PM Interpretation:hepatic and renal cysts Performing Lab: Notes/Report: hepatic and renal cysts Diarrhea Panel ([facility]) Reviewed date:05/08/2024 02:05:08 PM Interpretation: Performing Lab: Notes/Report: CBC Fingerstick (in house) Reviewed date:05/06/2024 12:50:49 [...] - 38 plat 168 100 - 400 P-Basic Metabolic Panel (BMP ) Reviewed date:05/16/2024 02:06:29 PM Interpretation:Normal Performing Lab: Notes/Report: Test performed by [facility] [address] [place] [address] , [address], [place] [address] Calin Simmons MD, Property Coordinator CLIA: [id number] Sodium 141 135-145 mmol/L Potassium 3.5 3.5-5.3 mmol/L Chloride 102 97-108 mmol/L CO2 30 22-32 mmol/L Glucose 85 65-99 mg/dL BUN 15 8-23 mg/dL Creatinine 0.92 0.50-1.00 mg/dL Calcium 9.3 8.6-10.4 mg/dL eGFR by Creatinine 67 >59 mL/min/1.73m2 CBC Venipuncture (in house) Reviewed date:05/03/2024 12:22:35 AM Interpretation: Performing Lab: Notes/Report: wbc 4.2 3.5 - 10 lymph 32.9% 15 - 50 mid 6.3% 2 - 15 gran 60.8% 35 - 80 rbc 3.91 3.5 - 5.5 hgb 11.4 11.5 - 16.5 hct 33.7 35 - 55 mcv 86.1 75 - 100 mch 29.3 25 - 35 mchc 34.0 31 - 38 platlet 257 100 - 400 Urinalysis - Inhouse Reviewed date:05/03/2024 12:22:25 AM Interpretation: Performing Lab: Notes/Report: Color/Clarity yellow/clear Leuk Neg Nitrite Neg Urobili 3.2 Protein Neg pH 6.5 Blood Neg Sp. Gr. 1.010 Ketone Neg Bili Neg Gluc Neg H-Diarrhea 6-11 Panel, Cdiff PCR Reviewed date:05/09/2024 08:39:50 PM Interpretation:Negative Performing Lab: Notes/Report: AEROMONAS Not Detected NotDetected CAMPYLOBACTER Not Detected NotDetected CLOSTR DIFFICIL Not Detected NotDetected PLESIOMONAS Not Detected NotDetected SALMONELLA, PCR Not Detected NotDetected YERSINIA Not Detected NotDetected VIBRIO, PCR Not Detected NotDetected VIBRIO CHOLERAE Not Detected NotDetected ECOLI (EAEC) Not Detected NotDetected ECOLI (EPEC) Not Detected NotDetected ECOLI (ETEC) Not Detected NotDetected SHIGATOXIN Not Detected NotDetected ECOLI O157 Not Detected NotDetected SHIG-INVAS ECOL Not Detected NotDetected CRYPTO Not Detected NotDetected CYCLOSPORA Not Detected NotDetected EHISTOLYTICA Not Detected NotDetected GIARDIA Not Detected NotDetected ADENO STOOL Not Detected NotDetected ASTROVIRUS Not Detected NotDetected NOROVIRUS Not Detected NotDetected ROTOVIRUS A Not Detected NotDetected SAPOVIRUS Not Detected NotDetected Medications Medication SIG (Take, Route, Frequency, Duration) Notes Start Date End Date Status Raloxifene HCl 60 mg TAKE ONE TABLET BY MOUTH EVERY DAY; Duration: 30 Active ONE A DAY FOR WOMEN 1 TAB(S) DIRECTED Active Leflunomide 20 MG 1 tablet Orally Once a day; Duration: 30 day(s) Active Aspirin 81 81 MG 1 tablet Orally Once a day Active Memantine HCl ER 7 MG 1 capsule Orally O nce a day; Duration: 30 days 01/27/2025 Active traZODone HCl 50 MG 1 tablet at bedtime as needed Orally Once a day 07/08/2024 Active DULoxetine HCl 30 mg TAKE ONE CAPSULE BY MOUTH EVERY DAY; Duration: 30 Active Align 4 MG 1 cap(s) orally once a day Active Farxiga 10 MG 1 tablet Orally Once a day Active Donepezil HCl 5 mg TAKE ONE TABLET BY MOUTH EVERY DAY AT BEDTIME; Duration: 30 Active Rosuvastatin Calcium 20 MG 1 tablet Oral ly At Bed Time; Duration: 90 days Active Pramipexole Dihydrochloride 0.125 MG 2 Orally At Bed Time 01/01/2024 Active Immunizations Vaccine Route Administration Date Status Comme nts COVID 19 Pfizer Unknown 08/03/2020 Administered COVID 19 Pfizer Unknown 08/25/2020 Administered COVID 19 Pfizer Unknown 05/12/2021 Administered DT, 7 YEARS OR OLDER IM Intramuscular 04/23/2005 Administe red Fluzone High Dose (65yr and older) Unknown 05/28/2021 Administered Hepatitis A (adult) IM Intramuscular 04/23/2005 Administer ed Hepatitis A (adult) Unknown 06/13/2018 Administered PNEUMOVAX 23 VACCINE IM Intramuscular 12/08/2016 Administe red Prevnar (PCV13) IM Intramuscular 11/24/2020 Administered Shingrix IM Intramuscular 04/05/2021 Administered Tetanus Tdap-Adacel (over 7yrs) IM Intramuscular 06/14/2011 Administered Zostavax IM Intramuscular 01/18/2017 Administered Problems Problem Type SNOMED Code ICD Code Onset Dates Problem Status W/U Status Risk Notes Problem Essential hypertension (11194297) Essential (primary) hypertension (I10) Active confirmed Problem Hypertension (83234359) HTN (hypertension) (I10) Active confirmed Problem History of malignant melanoma of the skin (245113180538) History of melanoma (Z85.820) Active confirmed Problem Essential hypertension (58195665) Essential hypertension (I10) Active confirmed Problem Abnormal mammogram (138117781) Abnormal mammogram (R92.8) Active confirmed Problem Diverticulitis (03200723) Diverticulitis (K57.92) Active confirmed Problem Mixed anxiety and depressive disorder (262492592) Depression with anxiety (F41.8) Active confirmed Problem Memory loss (57420970) Memory loss (R41.3) Active confirmed Problem Primary insomnia (8128246) Primary insomnia (F51.01) Active confirmed Problem Restless legs syndrome (14677007) Restless legs syndrome (G25.81) Active confirmed Problem Diverticulitis of colon (569222901) Diverticulitis of large intestine without perforation or abscess without bleeding (K57.32) Active confirmed Problem Fibrocystic breast changes (18329735) Diffuse cystic mastopathy of right breast (N60.11) Active confirmed Problem Disorder of female genital organs (464389194) Other specified conditions associated with female genital organs and menstrual cycle (N94.89) Active confirmed Problem Postmenopausal atrophic vaginitis (12155939) Postmenopausal atrophic vaginitis (N95.2) Active confirmed Problem Rheumatoid arthritis (23839112) Rheumatoid arthritis involving multiple sites with positive rheumatoid factor (M05.79) Active confirmed Problem Hyperlipidaemia (39303409) Hyperlipidemia, unspecified hyperlipidemia type (E78.5) Active confirmed Problem Dyslipidemia (959254358) Dyslipidemia (E78.5) Active confirmed Problem Joint pain (09571080) Arthralgia, unspecified joint (M25.50) Active confirmed Problem Thyromegaly (4874343) Thyromegaly (E01.0) Active confirmed Problem Osteopenia (417394139) Osteopenia, unspecified location (M85.80) Active confirmed Problem Achrochordon (868623246) Achrochordon (L91.8) Active confirmed Problem Fibrocystic breast changes (04647674) Fibrocystic breast disease (FCBD), unspecified laterality (N60.19) Active confirmed Problem Neoplasm of tongue (695514240) 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) Active confirmed Problem Localized, 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) AC joint arthropathy (M19.019) Active confirmed Problem Osteopenia of neck of femur, unspecified laterality (M85.859) Active confirmed Problem Multiple premature ventricular complexes (disorder) (846330614) PVC's (premature ventricular contractions) (I49.3) Active confirmed Problem Disorder of cornea (84318595) Corneal abnormality (H18.9) Active confirmed Vital Signs Heart Rate 76 /min 01/27/2025 Blood pressure diastolic 80 mm Hg 01/27/2025 Height 62 in 01/27/2025 Blood pressure systolic 130 mm Hg 01/27/2025 Weight 131.4 lbs 01/27/2025 BMI 24.03 kg/m2 01/27/2025 Encounters Encounter Location Date Provider Diagnosis [facility] [facility] [address] [place] [id number] 03/12/2024 Rea Vaughn Muscle pain M79.10 [facility] [facility] [address] [place] [id number] 05/01/2024 Shanique Crowdy Left lower quadrant pain R10.32 [facility] [address] [facility] [address] [place] [id number] 05/06/2024 Rea Vaughn Diarrhea R19.7 and Abdominal pain R10.9 [facility] [facility] [address] [place] [id number] 07/08/2024 J Saman Nye Essential hypertensi on I10 ; Restless legs syndrome G25.81 ; Rheumatoid arthritis involving multiple sites with positive rheumatoid factor M05.79 ; Primary insomnia F51.01 and Hyperlipidemia, unspecified hyperlipidemia type E78.5 [facility] [address] [facility] [address] [place] [id number] 10/07/2024 Kobe Nye Essential hypertensi on I10 ; Restless legs syndrome G25.81 ; Acute midline low back pain without sciatica M54.50 ; Memory loss R41.3 and Heart palpitations R00.2 [facility] [address] [facility] [address] [place] [id number] 11/04/2024 J Saman Nye PVC's (premature ventricular contractions) I49.3 ; Visual changes H53.9 ; Rheumatoid arthritis involving multiple sites with positive rheumatoid factor M05.79 ; Essential (primary) hypertension I10 ; Memory loss R41.3 and Near syncope R55 [facility] [address] [facility] [address] [place] [id number] 11/14/2024 J Saman Nye PVC's (premature ventricular contractions) I49.3 ; Dizziness R42 and BMI 25.0-25.9,adult Z68.25 [facility] [address] [facility] [address] [place] [id number] 12/02/2024 J Saman Nye PVC's (premature ventricular contractions) I49.3 and BMI 24.0-24.9, adult Z68.24 [facility] [address] [place], [place] [id number] 01/27/2025 Kobe Nye Memory loss R41.3 ; Essential (primary) hypertension I10 and BMI 24.0-24.9, adult Z68.24 [facility] [address] [place], [place] [id number] 02/05/2025 Kobe Nye [facility] [address] [place], [place] [id number] 03/12/2024 Kobe Nye [facility] [address] [place], [place] [id number] 03/12/2024 Kobe Nye [facility] [address] [place], [place] [id number] 03/14/2024 Rea Vaughn Muscle pain M79.10 [facility] [address] [place], [place] [id number] 07/09/2024 Kobe Nye [facility] [address] [place], [place] [id number] 08/08/2024 Kobe Nye Restless legs syndro me G25.81 [facility] [address] [place], [place] [id number] 10/11/2024 Kobe Nye Heart palpitations R00.2 [facility] [address] [place], [place] [id number] 11/06/2024 Kobe Nye [facility] [address] [place], [place] [id number] 11/18/2024 Kobe Nye Primary insomnia F51 .01 Assessments Encounter Date Diagnosis (ICD Code) Assessment Notes Treatment Notes Treatment Clinical Notes Section Notes 03/12/2024 Muscle pain (ICD-10 - M79.10) heat/ice application prn; MEDS with food and may cause drowsiness; OTC antiinflammatory creams prn with massage; stretching maneuvers 03/14/2024 Muscle pain (ICD-10 - M79.10) 05/01/2024 Left lower quadrant pain (ICD-10 - R10.32) Patient is known to have sigmoid diverticulosis. She has been eating popcorn and then began having pain in the LLQ. Her renal function was slightly elevated on labs done by rheumatology. Will recheck a BMP today. Here CBC is normal as is her U/A. Will go ahead and start on oral flagyl and f/u next week. If pain persists, will get a CT scan. 05/06/2024 Abdominal pain (ICD-10 - R10.9) will progress diet as tolerated; will also schedule CT scan ; maintain hydration; will add Levaquin and continue with Flagyl 05/06/2024 Diarrhea (ICD-10 - R19.7) 07/08/2024 Essential hypertension (ICD-10 - I10) 07/08/2024 Restless legs syndrome (ICD-10 - G25.81) 08/08/2024 Restless legs syndrome (ICD-10 - G25.81) 10/07/2024 Essential hypertension (ICD-10 - I10) 10/07/2024 Restless legs syndrome (ICD-10 - G25.81) 10/11/2024 Heart palpitations (ICD-10 - R00.2) 11/04/2024 PVC's (premature ventricular contractions) (ICD-10 - I49.3) ADMIT TO [facility] OBS FOR DYSRRHYTHMIA, NEAR SYNCOPE, CHEST PAIN 11/04/2024 Visual changes (ICD-10 - H53.9) Sees Dr. Vladislav Todd. I would like her to have appointment with him soon due to the visual changes. 11/14/2024 Dizziness (ICD-10 - R42) 11/14/2024 PVC's (premature ventricular contractions) (ICD-10 - I49.3) I need to discuss the case with Dr. Drake. Cardiac cath was reassuring regarding EF and coronaries. I think beta conchita is indicated. 11/18/2024 Primary insomnia (ICD-10 - F51.01) 12/02/2024 BMI 24.0-24.9, adult (ICD-10 - Z68.24) 12/02/2024 PVC's (premature ventricular contractions) (ICD-10 - I49.3) Cont RX. I NEED to speak to Dr. Foss. He has not contacted me. He did call today 12:45 PM. We discussed the MRI as a deciding factor. Has not yet been read. Also still with Holter monitor in place. 01/27/2025 Essential (primary) hypertension (ICD-10 - I10) 01/27/2025 Memory loss (ICD-10 - R41.3) 01/27/2025 BMI 24.0-24.9, adult (ICD-10 - Z68.24) 11/04/2024 Rheumatoid arthritis involving multiple sites with positive rheumatoid factor (ICD-10 - M05.79) 11/14/2024 BMI 25.0-25.9,adult (ICD-10 - Z68.25) 10/07/2024 Acute midline low back pain without sciatica (ICD-10 - M54.50) 07/08/2024 Rheumatoid arthritis involving multiple sites with positive rheumatoid factor (ICD-10 - M05.79) 07/08/2024 Primary insomnia (ICD-10 - F51.01) 11/04/2024 Essential (primary) hypertension (ICD-10 - I10) 10/07/2024 Memory loss (ICD-10 - R41.3) 11/04/2024 Memory loss (ICD-10 - R41.3) 07/08/2024 Hyperlipidemia, unspecified hyperlipidemia type (ICD-10 - E78.5) 10/07/2024 Heart palpitations (ICD-10 - R00.2) 11/04/2024 Near syncope (ICD-10 - R55) 11/14/2024 Other Discharge summa with available lab/diagnostic imaging results obtained and reviewed. Discharge medication list reconciled. Appropriate counseling provided. Moderate Complexity Plan Of Treatment Next Appt Details Provider Name:Kobe Clifford er, 05/05/2025 10:00:00 AM, [address], [address], [place], [place], [id number], Insurance Providers Payer Name Payer Address Payer Phone Subscriber Number Group Number Insured Name Patient Relationship to Insured Coverage Start Date Coverage End Date [employer] [address] [address] [place], [place] [id number] [place] [address] Self - patient is the insured Medications Administered Medication Instructions Date of Administration Dosage Notes Depo- Medrol 40 mg/ml 12/03/2012 Dexamethasone 12/26/2017 1 mL Dexamethasone 12/31/2022 1 mL Medical (General) History Medical History History ICD Code diverticulosis 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 Biswas 12/31/03 skin biopsy from Left arm, Dr. Moss Lesion Removal From Tongue -Dr. Banks 11/23/2017 Rgjrjmrb-[id number] left forearm 2014 colonoscopy, Dr. Hart 2009 Hospitalization History Reason Date(Month/Year) [facility]-diverticulosis 11/04 to 11/06/08
--- OUTSIDE RECORDS SUMMARY | 2025-02-17 08:51 | XMS_ITS | Encounter Summary ---
Author Organization Healthcare Address [address] [place] [address] Care Team Providers Care Hand Candy Cutter Name Role Phone Salo Nye MD Primary Care Provider [phone] Encounter Details Date Type Department Care Team (Latest Contact Info) Description 01/09/2025 Travel Social History Tobacco Use Types Packs/Day Years [...] Description 07/15/2025 2:30 PM EST Office Visit [facility] [address] [place] [address] Vladislav Todd MD [address] [place] [address] [place] [phone] documented as of this encounter Visit Diagnoses Not on filedocumented in this encounter Additional Health Concerns Assessment Noted Time A fall risk assessment has been complete d for the patient 05/08/2023 10:07 AM EDT A Body Mass Index follow-up plan has been documented for the patient 01/09/2025 10:13 AM EDT documented as of this encounter Care Teams Hand Candy Cutter Relationship Specialty Start Date End Date Salo Nye MD [address] [place] [address] [place] [address] PCP - General 12/25/20 documented as of this encounter
--- OUTSIDE RECORDS SUMMARY | 2025-02-17 08:51 | XMS_ITS | Encounter Summary ---
Author Organization Healthcare Address [address] [place] [address] Care Team Providers Care Environmental Research Project Manager Name Role Phone Salo Nye MD Primary Care Provider [phone] Encounter Details Date Type Department Care Team (Latest Contact Info) Description 01/08/2025 Travel Social History Tobacco Use Types Packs/Day [...] Description 07/15/2025 2:30 PM EST Office Visit [facility] [address] [place] [address] Vladislav Todd MD [address] [place] [address] [place] [address] documented as of this encounter Visit Diagnoses Not on filedocumented in this encounter Additional Health Concerns Assessment Noted Time A fall risk assessment has been complete d for the patient 05/08/2023 10:07 AM EDT A Body Mass Index follow-up plan has been documented for the patient 06/07/2024 12:24 PM EDT documented as of this encounter Care Teams Environmental Research Project Manager Relationship Specialty Start Date End Date Salo Nye MD [address] [place] [address] [place] [address] PCP - General 12/25/20 documented as of this encounter
--- OUTSIDE RECORDS SUMMARY | 2025-02-17 08:51 | XMS_ITS | Clinical Summary ---
Author Organization Healthcare Address [address] [place] [address] Care Team Providers Care Rn Neurosurgical Name Role Phone Salo Nye MD Primary Care Provider [phone] Allergies Active Allergy Reactions Criticality Noted Date Comments Fentanyl Itching,Unknown - Pa tient states they do not know rxn details Medium 12/31/2014 Severe itching Tolmetin Rash,Unknown - Patie nt states they do not know rxn details Low 09/01/2015 Medications * This document contains information received from the source organization and may not represent a complete record from that organization. raloxifene (Evista) 60 MG tablet TAKE 1 TABLET DAILY. 12/31/2014 Active Multiple Vitamins-Minera ls (Multivitamin Gummies Adult) chewable tablet 1 (one) time each day. Active Probiotic Product (PROBIOTIC-10 PO) Take 1 capsule by mouth 1 (one) time each day. Active leflunomide (Arava) 20 MG tablet Take 1 tablet (20 mg) by mouth Daily. 06/14/2023 Active Aspirin Low Dose 81 MG EC tablet Take 1 tablet by mouth daily. Active Farxiga 10 MG tablet Take 1 tablet by mouth daily. Active donepezil (Aricept) 5 MG tablet Take 1 tablet by mouth nightly. Active DULoxetine (Cymbalta) [address] capsule Take 1 capsule by mouth daily. Active metoprolol succinate XL (Toprol-XL) 25 MG 24 hr tablet Take 1 tablet by mouth daily. 12/25/2024 Active pramipexole (Mirapex) 0.125 MG tablet Active rosuvastatin (Crestor) 20 MG tablet 08/01/2024 Active traZODone (Desyrel) 50 MG tablet Take 1 tablet by mouth nightly. 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 07/29/2021 Pterygium of right eye 07/29/2021 Dry eyes 07/22/2021 Presbyopia of both eyes 04/26/2021 Regular astigmatism of both eyes 04/26/2021 Corneal deposit of both eyes 04/21/2020 Age-related nuclear cataract of both eyes 2019 Bilateral myopia 04/21/2020 Diverticulitis 04/21/2020 Melanoma 08/27/2015 Cancer Staging:Clinical: Unsigned Arthralgia of hand 12/31/2014 Encounters Date Type Department Care Team Description 01/09/2025 8:30 AM EDT Ancillary Procedure [facility] [address] [place] [address] 01/09/2025 8:15 AM EDT Office Visit [facility] [address] [place] [address] Vladislav Todd MD Corneal deposit of both eyes (Primary Dx); Pterygium of right eye; Acquired stenosis of right nasolacrimal duct; 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; Combined forms of age-related cataract of both eyes; Dry eyes; Glaucoma suspect of both eyes; High risk medication use 01/09/2025 Travel 01/08/2025 Travel from Last 3 Months Immunizations Immunization Administration Dates Next Due Hep A, Adult 06/13/2018 Hep B, adult 10/14/1999,09/14/1999,07/27/1999 Influenza, Unspecified 05/18/2020,2018,05/08/2018,06/01,05/25/2016,05/26/2015,05/26/2014 ,05/30/2013,05/30/2012,05/30/2011 Influenza, high-dose, quadrivalent 05/28/2021 PPD Skin Test (TB Skin Test) 02/05/2014, 01/22/2013,01/25/2012,06/24,07/13/2010,07/31/2009,08/20/2008 ,07/10/2007,07/31/2006,07/17/2006 AYLIEN COVID-19 Vac cine (Purple Cap) 12+ 08/25/2020,08/03/2020 Pneumococcal Conjugate PCV 13 11/24/2020 Pneumococcal Polysaccharide PPV23 12/08/2016 Tdap 06/24/2011 Family History Medical History Relation Name Comments Cancer Father Maximus Cataracts Father Maximus Hypertension Father Maximus Cataracts Mother Thea Hypertension Mother Thea Coronary artery disease Other 1 Arthritis Other 2 Dementia Other 3 Diabetes Other 4 Hypertension Other 5 Lung cancer Other 6 Heart attack Other 7 Relation Name Status Comments Father Maximus Mother Thea Other 1 Other 2 Other 3 Other 4 Other 5 Other 6 Other 7 Social History Tobacco Use Types Packs/Day Years [...] on file Sexual Orientation Not on file Last Filed Vital Signs Vital Sign Reading Time Taken Comments Blood Pressure 132/77 05/18/2020 8:07 AM EDT Pulse 86 05/18/2020 1:41 PM EDT Temperature 36.9 C (98.4 F) 05/18/2020 1:41 PM EDT Respiratory Rate - - Oxygen Saturation - - Inhaled Oxygen Concentration - - Weight 67.1 kg (148 lb) 04/29/2019 8:03 AM EDT Height 160 cm (5' 3 ) 05/18/2020 1:41 PM EDT Body Mass Index 26.22 04/29/2019 8:03 AM EDT Plan of Treatment Upcoming Encounters Date Type Department Care Team (Late st Contact Info) Description 07/15/2025 2:30 PM EST Office Visit [facility] [address] [place] [address] Vladislav Todd MD [address] [place] [address] Health Maintenance Due Date Last Done Comments [facility]-Bone Density Scan 1955 [facility]-Depression Screening 1955 [facility]-Hepatitis C Screening 1955 [facility]-Medicare Annual Wellness (AWV) 1955 [facility]-Infant/Child/Adol SDOH Screenings 1955 [facility]- SDOH Screenings 1973 [facility]-Adult SDOH Screenings 1973 CT Colonography 02/09/2000 Colonoscopy 02/09/2000 FIT-DNA 02/09/2000 FIT 02/09/2000 FOBT 02/09/2000 Sigmoidoscopy 02/09/2000 [facility]-Colorectal Cancer Screening 02/09/2000 [facility]-Breast Cancer Screening 2005 [facility]-RSV Vaccine: 60+ Years or (1 - Risk 60-74 years 1-dose series) 2015 [facility]-Zoster Vaccines (2 of 2) 05/31/2021 04/05/2021, 01/18/2017 [facility]-DTaP,Tdap,and Td Vaccines (2 - Td or Tdap) 06/24/2021 06/24/2011, 04/23/2005 [facility]-Pneumococcal Vaccine: 50+ Years (3 of 3 - PPSV23, PCV20 or PCV21) 12/08/2021 11/24/2020, 12/08/2016 [id number]-62 Vaccine (8 - Mixed Product risk season) 2024 05/20/2024, 06/19/2023, 06/08/2022, Additional history exists [facility]-Influenza Vaccine (#1) 04/14/202505/20, 06/06/2023, 05/28/2021, Additional history exists [facility]-Hepatitis A Vaccines Aged Out 06/13/2018, 04/14 No longer eligible based on patient's age to complete this topic HPV Vaccines Aged Out No longer eligi ble based on patient's age to complete this topic [facility]-HIB Vaccines Aged Out No longer e ligible based on patient's age to complete this topic [facility]-IPV Vaccines Aged Out No longer e ligible based on patient's age to complete this topic [facility]-Rotavirus Vaccines Aged Out No lo nger eligible based on patient's age to complete this topic Procedures Procedure Name Priority Date/Time Associated Diagnosis Comments OCT, OPTIC NERVE - OU - BOTH EYES Routine 01/09/2025 10:04 AM EDT Glaucoma suspect of both eyes High risk medication use from Last 3 Months Results * OCT, Optic Nerve - OU [...] Vladislav Todd MD OPHTH TOMOGRAPHY Final Result from Last 3 Months Insurance MEDICARE Care Teams Rn Neurosurgical Relationship Specialty Start Date End Date Salo Nye MD [address] [place] [address] [facility] - General 12/25/20
[2025-02-17 09:21] LABS: Anion Gap 11.5 mEq/L (5-15); Blood Urea Nitrogen 17 mg/dl (7-17); Calcium 9.7 mg/dl (8.4-10.2); Carbon Dioxide 32 mmol/L (22.0-30.0); Chloride 101 mmol/L (98-107); Creatinine,Serum 0.80 mg/dl (0.52-1.04); Estimated Glomerular Filt Rate 71 ml/min (>60); GFR (African American) 86 ML/MIN (>60); Glucose 87 mg/dl (74-100); Potassium 3.5 mmoL/L (3.5-5.1); Sodium 141 mmol/L (136-145)
== END 2025-02-17 23:59 | disposition home or self-care (01) ==
PROVIDERS: PCP Family Medicine; Visit Provider Internal Medicine
DX: I10 Essential (primary) hypertension (principal); R19.7 Diarrhea, unspecified
CPT/HCPCS: 36415; 80048

== ENCOUNTER 2025-02-24 13:30 | Outpatient (CLI) | payer MEDICARE, SELFPAY ==
--- OUTSIDE RECORDS SUMMARY | 2024-12-02 07:00 | XMS_ITS ---
Author Organization [facility] Address [address] [facility] [address] [phone] Care Team Providers Care Classification Inspector Name Role Phone Kobe Nye Primary Care [...] Orally Once a day Active Vital Signs Weight 134.2 lbs 12/02/2024 Blood pressure systolic 140 mm Hg 12/03/19 25 Blood pressure diastolic 90 mm Hg 025 Heart Rate 71 /min 12/02/2024 Height 62 in 12/02/2024 BMI 24.54 kg/m2 12/02/2024 Encounters Encounter Location Date Provider Diagnosis [facility] 36 [facility] [address] [place], [place] [phone] 12/02/2024 Kobe Nye PVC's (premature ventricular contractions) [...] Provider Name:Kobe Clifford er, 05/05/2025 10:00:00 AM, [facility]0 [facility] 36 [facility], [address], [place], [place], [phone], Progress Notes * KENISHA, DEREKDOB:[birth year] (70 yo F)Acc No.[id number]:12/02/2024 Progress Notes Patient: DEREK GUERRERO Provider: Kobe Nye M.D. :1955 A ge:69 Y S ex:Female Date:12/02/2024 Address:[address] [place] [address], [facility] Subjective: * Chief Complaints: * 1 . [...] work, COVID 19 Vaccine Pfizer, 08/03/20, 08/25/2020, Uuzazkcf-bd-amgq left forearm . * Surgical History: t ubal ligation 06/1988, lap/cholecystectomy 1997, ganglion cyst removal 1998, urologic surgery 1993, hysterectomy vaginal , colonoscopy, Dr. Biswas 12/31/03, skin biopsy from Left arm, Dr. Moss 09/01/2015, Lesion Removal From Tongue -Dr. Banks 11/23/2017, Iaexcgpw-ox-wzuj left forearm 2014, colonoscopy, Dr. Hart 2009. [...] leg edema. Assessment: * Assessment: 1. B TN 24.0-24.9, adult - Z68.24 2 . P VC's (premature ventricular contractions) - I49.3 Plan: * Treatment: * Procedure Codes: G 2211 Complex e/m visit add on, 3077F SYST BP = 140 MM HG6 IT, 3080F DIAST BP = 90 MM HG * Follow Up: 6 Weeks * Images: Billing Information: * Visit Code: 04049 Office Visit, Est Pt., Level 3. * Procedure Codes: G2211 Complex e/m visit add on. 3077F SYST BP = 140 MM HG6 IT. 3080F DIAST BP = 90 MM HG. * Electronic signature of Kobe Nye MD on 02/24/2025 at 01:41 PM EDT Sign off status: Pending * Provider: Kobe Nye M.D. Date: 0 12/02/2024 Generated for Chon cedeño/Monae/Sienna on: 0 02/24/2025 01:41 PM EDT History and Physical Notes * HPI [...]
--- OUTSIDE RECORDS SUMMARY | 2025-01-09 08:15 | XMS_ITS | Encounter Summary ---
Author Organization Healthcare Address [address] 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; Combined forms of age-related cataract of both eyes; Dry eyes; Glaucoma suspect of both eyes; High risk medication use Social History Tobacco Use Types Packs/Day Years Used Date Smoking Tobacco: Never Passive Smoke Exposure: Never Smokeless Tobacco: Never Tobacco Cessation:Counseling Given: No Alcohol Use Standard Drinks/Week Comments Yes 0 (1 standard drink = 0.6 oz pure alcohol) Alcoholic Drinks/day: Consumes alcohol occasionally Comments Unknown Sex and Gender Information Value Date Recorded Sex Assigned at Female 09/29/2021 4:46 PM EST Legal Sex Female 7:39 PM EDT Gender Identity Not on file Sexual Orientation Not on file documented as of this encounter Miscellaneous Notes * Progress Notes - Vladislav Todd MD - 01/09/2025 8:15 AM EDT Subjective Chief Complaint Tearing, Eye HPI 69 year old woman initially referred by Dr Wan Radford due to peripheral corneal deposits Both Eyes (OU). She has a history of Cataracts and dry eye PMH Hypertension, osteopetrosis. Now Diagnosed with Rheumatoid Arthritis (RA) . On plaquenil 200 2x/ day (BID) since 11/2021, patient stopped plaquenil in August 2023 and started taking Arava. Had blood work done previously, shows cholesterol 244 and + antinuclear antibodies test (EVONNE) otherwise normal SPEP Now with diverticulitis Patient states that vision has been a little blurry, requested a new RX. Pt reports a white ball in her peripheral, can't describe it has a floater or flash. Pt denies any eye pain or irritation. Pt denies using any eye drops. Last edited by Negro Solano MD on 01/09/2025 9:46 AM. ROS Positive for: Eyes Negative for: Constitutional, Gastrointestinal, Neurological, Skin, Genitourinary, Musculoskeletal,HENT, Endocrine, Cardiovascular, Respiratory, Psychiatric, Allergic/Imm, Heme/Lymph Last edited by Mimi Jalloh on 01/09/2025 8:23 AM. Objective Base Eye Exam Visual Acuity (Snellen - Linear) Right Left Dist cc 20/20 -2 20/40 -2 Dist ph cc 20/30 -1 Correction: Glasses Tonometry (Tonopen, 8:51 AM) Right Left Pressure 13 13 Pachymetry (01/09/2025) Right Left Thickness 546 539 Pupils Pupils APD Right PERRL None Left PERRL None Neuro/Psych Oriented x3: Yes Mood/Affect: Normal Dilation Both eyes: 1% Tropicamide, 2.5% Phenylephrine @ 8:52 AM Slit Lamp and Fundus Exam External Exam Right Left External Normal Normal Slit Lamp Exam Right Left Lids/Lashes regular lid margins, mild DMC regular lid margins, mild DMC Conjunctiva/Sclera clear clear Cornea Epithelial Basement Membrane Dystrophy (EBMD) no guttata; peripheral linear stromal changes ? Crystals up to 4 mm full thickness both eyes (OU) (central clear) approximately 5mm central clear zone nasal vascular pannus v.s. pterygium peripheral epithelial irregularities; no guttata; peripheral linear stromal changes both eyes (OU) peripheral ? Crystals most deep up to 4 mm (central clear zone approximately 5mm) Anterior Chamber deep and quiet deep and quiet Iris clear, good visibility of crypts/vessels clear, good visibility of crypts/vessels Lens 1-2+ NS 1-2+ NS Anterior Vitreous Normal Normal Fundus Exam Right Left Posterior Vitreous PVD clear Disc healthy rim tissue, distinct borders, no pallor (Tad Digital Wide Field lens) healthy rim tissue, distinct borders, no pallor (Tad Digital Wide Field lens) C/D Ratio .6, shallow sloping/tilted; myopic appearing .7, shallow sloping/tilted; myopic appearing Macula clear, good FR (+) clear, good FR (+) Vessels 2/3 ratio of Arterioles/venules w/o tortuosity or abnormality 2/3 ratio of Arterioles/venules w/o tortuosity or abnormality Periphery flat and attached 360 degrees flat and attached 360 degrees Refraction Wearing Rx Sphere Cylinder [place] Add Right -8.50 +0.25 137 +2.50 Left -9.25 +1.25 151 +2.50 Type: PAL Manifest Refraction (Subjective) Sphere Cylinder [place] Dist VA Add Near VA Right -8.50 Sphere 20/20 +2.50 20/20 Left -10.25 +1.00 105 20/25 +2.50 20/20 Assessment/Plan Diagnoses and all orders for this visit: Corneal deposit of both eyes Pterygium of right eye 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 Concerning for systemic deposits SPEP negative Uric Acid normal Calcium and parathyroid normal LFT and Renal panel normal Cholesterol mild elevation antinuclear antibodies test (EVONNE) elevated Diagnosed with Rheumatoid Arthritis by rheumatology ([place]) October 2021, started on plaquenil butnow off Patient denies family history of blindness or hereditary ocular/systemic disorders. She reports good health overall. Medications reviewed, she is on risedronate and reports h/o HCTZ use for HTN. 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 Recommend that patient use Artificial tears on a set schedule either Refresh, Systane, Genteal or Theratears or similar, generics not preferred. No get the red out drops (Visine/Clear eyes) or allergy drops (unless specifically recommended) Preservative Free artificial tears should be used several times per day if tears are needed four or more times per day also on a set schedule, as well as Genteal Gel or Refresh PM or Systane ointment at bedtime if patient notices symptoms upon awakening or during the night. Pterygium Right Eye (OD) Mild observe Combined form Cataracts Both Eyes (OU) Discussed that cataracts cause generally reversible visual loss Vision becomes affected by cataracts and surgery would likely improve vision when the cataracts progress to the point of interfering with activities of daily living After discussing Risks, Benefits, and Alternatives of surgery the patient wishes to observe at the present time Patient will call if vision worsens prior to this. Glaucoma suspect Due to nerve appearance No FH Intraocular Pressure 13 13 RNFL previously Right Eye (OD) mild nasal thinning and Left Eye (OS) likely normal subtle nasal thinning, baseline RNFL last time likely normal +- Left Eye (OS) Repeated today normal Mello visual field (HVF) previously normal Will repeat visual field (VF) next time High risk medication use Started plaquenil 200mg twice daily (BID) 11/2021 now off since 08/2023 OCT macula baseline obtained previously appears within normal limits 10-2 Mello visual field (HVF) no defects baseline 24-2 for glaucoma normal Mac OCT normal 05/2024 Differential diagnosis - systemic (ie multiple myeloma), drug induced, amyloid, degenerative, gout,calcium and cholesterol, ichthyosis Lattice type 2 Could be lattice type 2 less common varient No obvious etiology but opacities stable Blood work negative other than somewhat elevated cholesterol and positive antinuclear antibodies test (EVONNE), diagnosed with rheumatoid arthritis and started plaquenil, seeing Rheumatology would recommend urine protein electrophoresis Will see if rheumatology or PCP can send records. Did stop biphosphate, although doubt cause Nasolacrimal duct (NLD) obstruction Right Eye (OD) ?history of dacryocystorhinostomy (DCR) Dr Way +- obstruction last time Told to see Dr. Rusty Marquez but did not find any issue Could do blood work for corneal dystrophy ie GSN gene chromosome 9q34 Follow up in 6 months with Intraocular Pressure refract dilate pachymetry visual field (VF) Intraocular Pressure (visual field (VF) time after) Could consider Urine protein Electrophoresis with primary MD or Rheumatology Tobacco Use: Low Risk (01/09/2025) Patient History Smoking Tobacco Use: Never Smokeless Tobacco Use: Never Passive Exposure: Never The patient has been counseled on tobacco cessation: Not Applicable I saw and evaluated the patient with the resident/fellow. I discussed the case with the resident/fellow and agree with the findings and plan as documented. Vladislav Todd MD documented in this encounter Plan of Treatment Upcoming Encounters Date Type Department Care Team (Late st Contact Info) Description 07/15/2025 2:30 PM EST Office Visit [facility] [address] [place] [phone] Vladislav Todd MD [address] [address] documented as of this encounter Procedures Procedure Name Priority Date/Time Associated Diagnosis Comments OCT, OPTIC NERVE - OU - BOTH EYES Routine 01/09/2025 10:04 AM EDT Glaucoma suspect of both eyes High risk medication use documented in this encounter Results * OCT, Optic Nerve - OU - Both Eyes (01/09/2025 10:04 AM EDT) Anatomical Region Laterality Modality Head Optical Coherenc e Tomography Narrative 01/09/2025 10:04 AM EDT Right Eye Images reviewed and comparison made to baseline. Reliability: good and adequate. Left Eye Images reviewed and comparison made to baseline. Reliability: good and adequate. Notes Global average 94 and 92, right and left eye respectively. 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 Combined forms of age-related cataract of both eyes Dry eyes Unspecified tear film insufficiency Glaucoma suspect of both eyes Unspecified preglaucoma High risk medication use documented in this encounter Additional Health Concerns Assessment Noted Time A fall risk assessment has been complete d for the patient 05/08/2023 10:07 AM EDT A Body Mass Index follow-up plan has been documented for the patient 01/09/2025 10:13 AM EDT documented as of this encounter Care Teams Risk Engineer Relationship Specialty Start Date End Date Salo Nye MD [address] [place] [address] [place] [id number] PCP - General 12/25/20 documented as of this encounter
--- OUTSIDE RECORDS SUMMARY | 2025-01-09 08:30 | XMS_ITS | Encounter Summary ---
Author Organization Healthcare Address [address] [place] [address] Care Team Providers Care Hospital Superintendent Name Role Phone aSlo Nye MD Primary Care Provider [phone] Encounter Details Date Type Department Care Team (Late Contact Info) Description 01/09/2025 8:30 AM EDT Ancillary Procedure [facility] [address] [place] [address] Social History Tobacco Use Types [...] Description 07/15/2025 2:30 PM EST Office Visit [facility] [address] [place] [address] Vladislav Todd MD [address] [address] documented as of this encounter [...] documented as of this encounter Care Teams Hospital Superintendent Relationship Specialty Start Date End Date Salo Nye MD [address] [place] [address] [place] [address] PCP - General 12/25/20 documented as of this encounter
--- OUTSIDE RECORDS SUMMARY | 2025-01-27 07:45 | XMS_ITS ---
Author Organization [facility] Address 1210 [facility] [address] [phone] Care Team Providers Care Medical Coder Name Role Phone Kobe Nye Primary Care [...] [place] 2024 02:57:45 PM > faxed to [facility] Neurology Referral Priority Routine REASON FOR [...] Once a day Active Vital Signs Weight 131.4 lbs 01/27/2025 Blood pressure systolic 130 mm Hg 01/28/20 25 Blood pressure diastolic 80 mm Hg 025 Heart Rate 76 /min 01/27/2025 Height 62 in 01/27/2025 BMI 24.03 kg/m2 01/27/2025 Encounters Encounter Location Date Provider Diagnosis [facility] 36 [facility] [address] [place] [id number] 01/27/2025 Kobe Nye Memory loss R41.3 ; [...] 3 Months, Reason: Provider Name:Kobe Clifford er, 05/05/2025 10:00:00 AM, [facility] 36 [facility], [address], [place], [phone], Progress Notes * DEREK DEDOB:[birth year] (70 yo F)Acc No.[id number]:01/27/2025 Progress Notes Patient: T UCKER, DEREK Provider: Kobe Nye M.D. :1955 A ge:69 Y S ex:Female Date:01/27/2025 Address:[address] [facility] [address], [facility] Subjective: * Chief Complaints: * 1 . [...] work, COVID 19 Vaccine Pfizer, 08/03/20, 08/25/2020, Hpfrxtwp-kk-ojrp left forearm . * Surgical History: t ubal ligation 06/1988, lap/cholecystectomy 1997, ganglion cyst removal 1998, urologic surgery 1993, hysterectomy vaginal , colonoscopy, Dr. Biswas 12/31/03, skin biopsy from Left arm, Dr. Moss 09/01/2015, Lesion Removal From Tongue -Dr. Banks 11/23/2017, Nulcwwmj-vw-nnxr left forearm 2014, colonoscopy, Dr. Hart 2009. [...] (primary) hypertension - I10 3 . B NE 24.0-24.9, adult - Z68.24 Plan: * Treatment: [...] COLORECTAL CA SCREEN DOC REV, G9899 Scrn mariam perf rslts doc * Preventive Medicine: Screening / Special Tests: M ammogram , negative. C olonoscopy?Cologuard:01/06/2023, negative. * Follow Up: 3 Months * Images: Billing Information: * Visit Code: 07275 Office Visit, Est Pt., Level 3. * [...] 0 01/27/2025 Generated for Chon cedeño/Monae/eTransmitting on: 0 02/24/2025 01:41 PM EDT History [...] Provider Referred Provider Not es 01/27/2025 Kobe Ney , vignesh hernandez
--- OUTSIDE RECORDS SUMMARY | 2025-02-05 10:32 | XMS_ITS ---
Author Organization [facility] Address [address] [place] [phone] Care Team Providers Care Biofuels Plant Construction Worker Name Role Phone Kobe Nye Primary Care Provider REASON FOR VISIT BD and Mammo Encounters Encounter Location Date Provider Diagnosis [facility] 1210 [facility] 36 [facility] [address] [place] [id number] 02/05/2025 Kobe Nye Screening for osteoporosis Z13.820 [...] Name:Kobe Clifford er, 05/05/2025 10:00:00 AM, 1210 [facility] 36 [facility], [address], [place], [phone], Progress Notes * DEREK DEDOB:[birth year] (70 yo F)Acc No.[id number]:02/05/2025 Patient: DEREK GUERRERO :1955 A ge:69 Y S ex:Female Address:[address] [facility] [address], [place] [address] Subjective: * Chief Complaints: * B D [...] 11:52 :22 AM EDT > sent to [facility] for referral to [facility] * Procedure Codes: * true * Date: Generated for Chon cedeño/Monae/Alesmitting on: 0 02/24/2025 01:42 PM EDT
[2025-02-24 13:36] LABS: Clostridium Difficile A/B, PCR Not Detected (NotDetected); Cyclospora Cayetanesis Not Detected (NotDetected); Plesimonas Shigalloides, PCR Not Detected (NotDetected); Salmonella, PCR Not Detected (NotDetected); Shiga-like toxin E coli Not Detected (NotDetected); Shigella Enterovasive E coli Not Detected (NotDetected); Vibrio, PCR Not Detected (NotDetected); Yersinia Entercolitica, PCR Not Detected (NotDetected)
[2025-02-24 13:37] LABS: Adenovirus F 40/41, stool Not Detected (NotDetected)
--- OUTSIDE RECORDS SUMMARY | 2025-02-24 13:42 | XMS_ITS | Encounter Summary ---
Author Organization Healthcare Address [address] [place] [address] Care Team Providers Care Corporate Executive Name Role Phone Salo Nye MD Primary Care Provider [phone] Encounter Details Date Type Department Care Team [...] Description 07/15/2025 2:30 PM EST Office Visit [facility] [address] [place] [address] Vladislav Todd MD [address] [place] [address] documented as of this encounter Visit Diagnoses Not on filedocumented in this encounter Additional Health Concerns Assessment Noted Time A fall risk assessment has been complete d for the patient 05/08/2023 10:07 AM EDT A Body Mass Index follow-up plan has been documented for the patient 01/09/2025 10:13 AM EDT documented as of this encounter Care Teams Corporate Executive Relationship Specialty Start Date End Date Salo Nye MD [address] [place] [address] PCP - General 12/25/20 documented as of this encounter
--- OUTSIDE RECORDS SUMMARY | 2025-02-24 13:42 | XMS_ITS | Patient Health Record ---
Author Organization [facility] Address [address] [facility] [address] [id number] Care Team Providers Care Woodworking Machine Offbearer Name Role Phone Kobe Nye Primary Care Provider Rea Vaughn Unavailable [phone] Shanique Blanco Unavailable [phone] Allergies Allergen (clinical drug ingredient) Drug/Non Drug Allergy documented on EMR Reaction Allergy Type Onset Date Status fentanyl fentaNYL Unknown Drug Allergy Active tolmetin Tolmetin hives Drug Allergy Active Results Component Value Reference Range Notes H-TSH Reviewed date:11/05/2024 09:42:57 AM Interpretation: Performing Lab: Notes/Report: TSH 1.29 0.465-4.68 uIU/mL H-CBC Reviewed date:11/05/2024 09:42:57 AM Interpretation: Performing [...] 0.1 0.0-0.4 K/mm3 BA# 0.1 0-0.2 K/mm3 H-UA Reviewed date:11/05/2024 09:42:57 AM Interpretation: Performing [...] 5-10 0-5 #/hpf UBACT 1+ NONE /lpf H-CMP Reviewed date:11/05/2024 09:42:57 AM Interpretation: Performing [...] AGRATIO 1.6 1.1-1.8 ALP 65 38-126 U/L H-Glycohemoglobin A1C Reviewed date:11/05/2024 09:42:57 AM Interpretation: Performing Lab: Notes/Report: HGBA1C 5.4 4.0-6.0 % < 6% Non-Diabetic Level < 7% Controlled Diabetic Level > 8% Poorly Controlled Diabetic Level H-Magnesium Reviewed date:11/05/2024 09:42:57 AM Interpretation: Performing Lab: Notes/Report: MG 1.9 1.6-2.3 mg/dl H-Lactic Acid Reviewed date:11/05/2024 09:42:57 AM Interpretation: Performing Lab: Notes/Report: Comment Repeat 2nd or 3rd lactic acid to reflex if initial or subseq level > 2 LACTIC 0.6 0.7-2.1 mmol/L H-Troponin I Reviewed date:11/05/2024 09:42:57 AM Interpretation: [...] independently diagnostic. Clinical correlation is necessary. *ALERT* H-Cardiac Enzymes Reviewed date:11/05/2024 09:42:57 AM Interpretation: [...] Biotin is occasionally prescribed for medical conditions. H-Lipid Panel Reviewed date:11/05/2024 09:42:57 AM Interpretation: Performing Lab: Notes/Report: TRIG 111 30-150 mg/dl CHOL 115 140-200 mg/dl DLDL 35.18 100-129 mg/dL VLDL 22 0-40 mg/dL HDL 52 40-60 mg/dl CHLHDL 2.2 1-3.5 H-BUN/CREAT Reviewed date:05/20/2024 03:13:43 PM Interpretation: Performing Lab: Notes/Report: BUN 28 7-17 mg/dl CREATT 0.90 0.52-1.04 mg/dl GFRAA 75 >60 ML/MIN EGFR 62 >60 ml/min BUN, Creatinine Reviewed date:05/20/2024 03:13:31 PM Interpretation: Performing Lab: Notes/Report: EKG Reviewed date:10/11/2024 09:21:57 AM Interpretation:Abnormal Performing Lab: Notes/Report: Abnormal EKG Reviewed date:10/11/2024 09:21:57 AM Interpretation:Abnormal Performing Lab: Notes/Report: Abnormal P-Lipid Panel Reviewed date:07/09/2024 03:52:39 PM Interpretation:chol 258, trigs 187, chol/hdl 4.45, non-hdl 200, ldl 163 Performing Lab: Notes/Report: Test performed by [facility] [address] [place] [address] , [address], [place] [address] Calin Simmons MD, Test Deck Supervisor CLIA: [id number] Cholesterol 258 <200 mg/dL Triglycerides 187 <150 [...] 163 Units: mg/dL % Change: +41% _ P-Comprehensive Metabolic Pa isabell (CMP) Reviewed date:07/09/2024 03:52:39 PM Interpretation:bun 30 Performing Lab: Notes/Report: Test performed by [facility], [address] , [address] , [place] [address] Calin Simmons MD, Test Deck Supervisor CLIA: [id number] Sodium 139 135-145 mmol/L Potassium 3.8 3.5-5.3 [...] 0.4 <0.2-1.2 mg/dL A/G Ratio 2.0 1.1-2.5 CBC Venipuncture (in house) Reviewed date:05/03/2024 12:22:35 [...] 1.010 Ketone Neg Bili Neg Gluc Neg P-Basic Metabolic Panel (BMP ) Reviewed date:05/16/2024 02:06:29 PM Interpretation:Normal Performing Lab: Notes/Report: Test performed by [facility] [address] [place] [address] , [address], [place] [address] Calin Simmons MD, Test Deck Supervisor CLIA: [id number] Sodium 141 135-145 mmol/L Potassium 3.5 3.5-5.3 mmol/L Chloride 102 97-108 mmol/L CO2 30 22-32 mmol/L Glucose 85 65-99 mg/dL BUN 15 8-23 mg/dL Creatinine 0.92 0.50-1.00 mg/dL Calcium 9.3 8.6-10.4 mg/dL eGFR by Creatinine 67 >59 mL/min/1.73m2 CBC Fingerstick (in house) Reviewed date:05/06/2024 12:50:49 [...] plat 168 100 - 400 Diarrhea Panel (HM) Reviewed date:05/08/2024 02:05:08 PM Interpretation: Performing Lab: Notes/Report: CT scan : abdomen and pelvis w/ and w/o contrast (urography) Reviewed date:05/22/2024 02:16:09 PM Interpretation:hepatic and renal cysts Performing Lab: Notes/Report: hepatic and renal cysts H-Diarrhea 6-11 Panel, Cdiff PCR Reviewed date:05/09/2024 [...] W/U Status Risk Notes Problem Essential hypertension (61728927) Essential (primary) hypertension (I10) Active confirmed Problem Hypertension (09708973) HTN (hypertension) (I10) Active confirmed Problem History of malignant melanoma of the skin (854629610532) History of melanoma (Z85.820) Active confirmed Problem Essential hypertension (51408648) Essential hypertension (I10) Active confirmed Problem Abnormal mammogram (683345602) Abnormal mammogram (R92.8) Active confirmed Problem Diverticulitis (28968203) Diverticulitis (K57.92) Active confirmed Problem Mixed anxiety and depressive disorder (324606883) Depression with anxiety (F41.8) Active confirmed Problem Memory loss (05013167) Memory loss (R41.3) Active confirmed Problem Primary insomnia (6354778) Primary insomnia (F51.01) Active confirmed Problem Restless legs syndrome (55448453) Restless legs syndrome (G25.81) Active confirmed Problem Diverticulitis of colon (173240810) Diverticulitis of large intestine without perforation or abscess without bleeding (K57.32) Active confirmed Problem Fibrocystic breast changes (37226816) Diffuse cystic mastopathy of right breast (N60.11) Active confirmed Problem Disorder of female genital organs (837287901) Other specified conditions associated with female genital organs and menstrual cycle (N94.89) Active confirmed Problem Postmenopausal atrophic vaginitis (30697867) Postmenopausal atrophic vaginitis (N95.2) Active confirmed Problem Rheumatoid arthritis (74189841) Rheumatoid arthritis involving multiple sites with positive rheumatoid factor (M05.79) Active confirmed Problem Hyperlipidaemia (52948448) Hyperlipidemia, unspecified hyperlipidemia type (E78.5) Active confirmed Problem Dyslipidemia (022231525) Dyslipidemia (E78.5) Active confirmed Problem Joint pain (60221886) Arthralgia, unspecified joint (M25.50) Active confirmed Problem Thyromegaly (0417219) Thyromegaly (E01.0) Active confirmed Problem Osteopenia (436268864) Osteopenia, unspecified location (M85.80) Active confirmed Problem Achrochordon (392111677) Achrochordon (L91.8) Active confirmed Problem Fibrocystic breast changes (66293539) Fibrocystic breast disease (FCBD), unspecified laterality (N60.19) Active confirmed Problem Neoplasm of tongue (313702362) 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) Active confirmed Problem Localized, primary osteoarthritis of the shoulder region (781144313) AC joint arthropathy (M19.019) Active confirmed Problem Osteopenia of neck of femur, unspecified laterality (M85.859) Active confirmed Problem Multiple premature ventricular complexes (disorder) (739024754) PVC's (premature ventricular contractions) (I49.3) Active confirmed Problem Disorder of cornea (87653960) Corneal abnormality (H18.9) Active confirmed Vital Signs Heart Rate 76 /min 01/27/2025 Blood pressure diastolic 80 mm Hg 01/27/2025 Height 62 in 01/27/2025 Blood pressure systolic 130 mm Hg 01/27/2025 Weight 131.4 lbs 01/27/2025 BMI 24.03 kg/m2 01/27/2025 Encounters Encounter Location Date Provider Diagnosis [facility] [address] [place] [facility] [address] [place] [id number] 03/12/2024 Rea Vaughn Muscle pain M79.10 [facility] [address] [place] [facility] [address] [place] [id number] 05/01/2024 Shanique Crowdy Left lower quadrant pain R10.32 [facility] [address] [place] [facility] [address] [place] [id number] 05/06/2024 Rea Vaughn Diarrhea R19.7 and Abdominal pain R10.9 [facility] [address] [place] [facility] [address] [place] [id number] 07/08/2024 J Saman Nye Essential hypertensi on I10 ; Restless legs syndrome G25.81 ; Rheumatoid arthritis involving multiple sites with positive rheumatoid factor M05.79 ; Primary insomnia F51.01 and Hyperlipidemia, unspecified hyperlipidemia type E78.5 [facility] [address] [place] [facility] [address] [place] [id number] 10/07/2024 Kobe Nye Essential hypertensi on I10 ; Restless legs syndrome G25.81 ; Acute midline low back pain without sciatica M54.50 ; Memory loss R41.3 and Heart palpitations R00.2 [facility] [address] [place] [facility] [address] [place] [id number] 11/04/2024 J Saman Nye PVC's (premature ventricular contractions) I49.3 ; Visual changes H53.9 ; Rheumatoid arthritis involving multiple sites with positive rheumatoid factor M05.79 ; Essential (primary) hypertension I10 ; Memory loss R41.3 and Near syncope R55 [facility] [address] [place] [facility] [address] [place] [id number] 11/14/2024 J Saman Nye PVC's (premature ventricular contractions) I49.3 ; Dizziness R42 and BMI 25.0-25.9,adult Z68.25 [facility] [address] [place] [facility] [address] [place] [id number] 12/02/2024 J Saman Nye PVC's (premature ventricular contractions) I49.3 and BMI 24.0-24.9, adult Z68.24 [facility] [address] [place], [place] [id number] 01/27/2025 Kobe Nye Memory loss R41.3 ; Essential (primary) hypertension I10 and BMI 24.0-24.9, adult Z68.24 [facility] [address] [place] [id number] 03/12/2024 Kobe Nye [facility] [address] [place] [id number] 03/12/2024 Kobe Nye [facility] [address] [place] [id number] 03/14/2024 Rea Vaughn Muscle pain M79.10 [facility] [address] [place], [place] [id number] 07/09/2024 Kobe Nye [facility] [address] [facility] [address] [place] [id number] 08/08/2024 Kobe Nye Restless legs syndro me G25.81 [facility] [address] [facility] [address] [place], [place] [id number] 10/11/2024 Kobe Nye Heart palpitations R00.2 [facility] [address] [facility] [address] [place] [id number] 11/06/2024 Kobe Nye [facility] [address] [facility] [address] [place] [id number] 11/18/2024 Kobe Nye Primary insomnia F51 .01 [facility] [address] [facility] [address] [place] [id number] 02/05/2025 Kobe Nye Screening for osteoporosis Z13.820 and Screening for breast cancer Z12.39 [facility] [address] [facility] [address] [place], [place] [id number] 02/17/2025 Kobe Nye Assessments Encounter Date Diagnosis (ICD Code) Assessment Notes Treatment Notes Treatment Clinical Notes Section Notes 02/05/2025 Screening for breast cancer (ICD-10 - Z12.39) 02/05/2025 Screening for osteoporosis (ICD-10 - Z13.820) 11/04/2024 PVC's (premature ventricular contractions) (ICD-10 - I49.3) ADMIT TO [facility] OBS FOR DYSRRHYTHMIA, NEAR SYNCOPE, CHEST [...] I10) 01/27/2025 Memory loss (ICD-10 - R41.3) 03/12/2024 Muscle pain (ICD-10 - M79.10) heat/ice [...] G25.81) 10/11/2024 Heart palpitations (ICD-10 - R00.2) 10/07/2024 Acute midline low back pain without sciatica (ICD-10 - M54.50) 07/08/2024 Rheumatoid arthritis involving multiple sites with positive rheumatoid factor (ICD-10 - M05.79) 01/27/2025 BMI 24.0-24.9, adult (ICD-10 - Z68.24) 11/14/2024 BMI 25.0-25.9,adult (ICD-10 - Z68.25) 11/04/2024 Rheumatoid arthritis involving multiple sites with positive rheumatoid factor (ICD-10 - M05.79) 07/08/2024 Primary insomnia (ICD-10 - F51.01) 11/04/2024 Essential (primary) hypertension (ICD-10 - I10) 10/07/2024 Memory loss (ICD-10 - R41.3) 10/07/2024 Heart palpitations (ICD-10 - R00.2) 07/08/2024 Hyperlipidemia, unspecified hyperlipidemia type (ICD-10 - E78.5) 11/04/2024 Memory loss (ICD-10 - R41.3) 11/04/2024 Near syncope (ICD-10 - R55) 11/14/2024 Other Discharge summa ry with available lab/diagnostic imaging results obtained and reviewed. Discharge medication list reconciled. Appropriate counseling provided. Moderate Complexity Plan Of Treatment Pending Test Test Name Order Date Bone density 02/05/2025 Mammogram 02/05/2025 Next Appt Details Provider Name:Kobe Clifford er, 05/05/2025 10:00:00 AM, [address], [place], [id number], Insurance Providers Payer Name Payer Address Payer Phone Subscriber Number Group Number Insured Name Patient Relationship to Insured Coverage Start Date Coverage End Date [employer] MEDICARE [address] [address] [place], [place] [id number] [place], [place] Self - patient is the insured Medications Administered Medication Instructions Date of Administration Dosage Notes Depo- Medrol 40 mg/ml 12/03/2012 Dexamethasone 12/26/2017 1 mL Dexamethasone 12/31/2022 1 mL Medical (General) History Medical History History ICD Code diverticulosis 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 Biswas 12/31/03 skin biopsy from Left arm, Dr. Moss Lesion Removal From Tongue -Dr. Banks 11/23/2017 Nompzgxo-lz-xalc left forearm 2014 colonoscopy, Dr. Hart 2009 Hospitalization History Reason Date(Month/Year) [facility]-diverticulosis 11/04 to 11/06/08
--- OUTSIDE RECORDS SUMMARY | 2025-02-24 13:42 | XMS_ITS | Clinical Summary ---
Author Organization Healthcare Address [address] [place] [address] Care Team Providers Care Drafter Detail Name Role Phone Salo Nye MD Primary Care Provider [phone] Allergies Active Allergy Reactions Criticality Noted Date [...] Description 01/09/2025 8:30 AM EDT Ancillary Procedure [facility] [address] [place] [address] 01/09/2025 8:15 AM EDT Office Visit [facility] [address] [place] [address] Vladislav Todd MD Corneal deposit of both [...] Test (TB Skin Test) 02/05/2014, 01/22/2013,01/25/2012,06/24,07/13/2010,07/31/2009,08/20/2008 ,07/10/2007,07/31/2006,07/17/2006 N(i)² COVID-19 Vac cine (Purple Cap) 12+ 08/25/2020,08/03/2020 [...] Description 07/15/2025 2:30 PM EST Office Visit [facility] [address] [place] [address] Vladislav Todd MD [address] [place] [address] Health Maintenance Due Date Last [...] PPSV23, PCV20 or PCV21) 12/08/2021 11/24/2020, 12/08/2016 [id number] Vaccine (8 - Mixed Product risk season) [...] Last 3 Months Insurance MEDICARE Care Teams Drafter Detail Relationship Specialty Start Date End Date Salo Nye MD [address] [place] [address] [facility] - General 12/25/20
--- OUTSIDE RECORDS SUMMARY | 2025-02-24 13:42 | XMS_ITS | Encounter Summary ---
Author Organization Healthcare Address [address] [place] [address] Care Team Providers Care Band Sawing Machine Operator Name Role Phone Salo Nye MD Primary Care Provider [phone] Encounter Details Date Type Department Care Team [...] [facility] [address] [place] [address] Vladislav Todd MD [address] [place] [address] documented as of this encounter Visit Diagnoses Not on filedocumented in this encounter Additional Health Concerns Assessment Noted Time A fall risk assessment has been complete d for the patient 05/08/2023 10:07 AM EDT A Body Mass Index follow-up plan has been documented for the patient 06/07/2024 12:24 PM EDT documented as of this encounter Care Teams Band Sawing Machine Operator Relationship Specialty Start Date End Date Salo Nye MD [address] [place] [address] PCP - General 12/25/20 documented as of this encounter
[2025-02-24 14:39] LABS: Anion Gap 13.2 mEq/L (5-15); Blood Urea Nitrogen 17 mg/dl (7-17); Calcium 9.6 mg/dl (8.4-10.2); Carbon Dioxide 28 mmol/L (22.0-30.0); Chloride 102 mmol/L (98-107); Creatinine,Serum 0.90 mg/dl (0.52-1.04); Estimated Glomerular Filt Rate 62 ml/min (>60); GFR (African American) 75 ML/MIN (>60); Glucose 82 mg/dl (74-100); Potassium 4.2 mmoL/L (3.5-5.1); Sodium 139 mmol/L (136-145)
== END 2025-02-24 23:59 | disposition home or self-care (01) ==
LOC: LAB.DROPOF 13:31
PROVIDERS: PCP Family Medicine; Visit Provider Internal Medicine
DX: I10 Essential (primary) hypertension (principal); R19.7 Diarrhea, unspecified
CPT/HCPCS: 36415; 80048; 87045; 87177; 87507

== ENCOUNTER 2025-02-27 09:01 | Outpatient (CLI) | payer MEDICARE, SELFPAY ==
--- OUTSIDE RECORDS SUMMARY | 2024-12-02 07:00 | XMS_ITS ---
Author Organization [facility] Address [address] [facility] [address] [phone] Care Team Providers Care Weaving Inspector Name Role Phone Kobe Nye Primary [...] Encounter Location Date Provider Diagnosis [facility] 36 [facility] [address] [place], [place] [phone] 12/02/2024 Kobe Nye PVC's (premature ventricular contractions) [...] Provider Name:Kobe Clifford er, 05/05/2025 10:00:00 AM, [facility]0 [facility] 36 [facility], [address], [place], [place], [id number], Progress Notes * KENISHA, DEREKDOB:[birth year] (70 yo F)Acc No.[id number]:12/02/2024 Progress Notes Patient: DEREK GUERRERO Provider: Kobe Nye M.D. :1955 A ge:69 Y S ex:Female Date:12/02/2024 Address:[address] [place] [address], [facility] Subjective: * Chief Complaints: * 1 . [...] work, COVID 19 Vaccine Pfizer, 08/03/20, 08/25/2020, Ncomkasr-kj-lyiz left forearm . * Surgical History: t ubal ligation 06/1988, lap/cholecystectomy 1997, ganglion cyst removal 1998, urologic surgery 1993, hysterectomy vaginal , colonoscopy, Dr. Biswas 12/31/03, skin biopsy from Left arm, Dr. Moss 09/01/2015, Lesion Removal From Tongue -Dr. Banks 11/23/2017, Ijrbnkps-to-airo left forearm 2014, colonoscopy, Dr. Hart 2009. [...] leg edema. Assessment: * Assessment: 1. B ME 24.0-24.9, adult - Z68.24 2 . P VC's (premature ventricular contractions) - I49.3 Plan: * Treatment: * Procedure Codes: G 2211 Complex e/m visit add on, 3077F SYST BP = 140 MM HG6 IT, 3080F DIAST BP = 90 MM HG * Follow Up: 6 Weeks * Images: Billing Information: * Visit Code: 10439 Office Visit, Est Pt., Level 3. * Procedure Codes: G2211 Complex e/m visit add on. 3077F SYST BP = 140 MM HG6 IT. 3080F DIAST BP = 90 MM HG. * Electronic signature of Kobe Nye MD on 02/27/2025 at 09:04 AM EDT Sign off status: Pending * Provider: Kobe Nye M.D. Date: 0 12/02/2024 Generated for Chon cedeño/Monae/Sienna on: 0 02/27/2025 09:04 AM EDT History and Physical Notes * [...]
--- OUTSIDE RECORDS SUMMARY | 2025-01-09 08:15 | XMS_ITS | Encounter Summary ---
Author Organization Healthcare Address [address] [place] [address] Care Team Providers Care Equipment Maintenance Superintendent Name Role Phone Salo Nye MD Primary Care Provider [phone] Reason for Visit * Reason Comments Tearing, Eye Encounter Details Date Type Department Care Team (Late st Contact Info) Description 01/09/2025 8:15 AM EDT Office Visit [facility] [address] [place] [address] Vladislav Todd MD [address] [address] Corneal deposit of both eyes [...] 360 degrees Refraction Wearing Rx Sphere Cylinder [place] Add Right -8.50 +0.25 137 +2.50 Left -9.25 +1.25 151 +2.50 Type: PAL Manifest Refraction (Subjective) Sphere Cylinder [place] Dist VA Add Near VA Right -8.50 [...] elevated Diagnosed with Rheumatoid Arthritis by rheumatology ([place]) October 2021, started on plaquenil butnow off [...] Description 07/15/2025 2:30 PM EST Office Visit [facility] [address] [place] [phone] Vladislav Todd MD [address] [address] documented as of this encounter [...] documented as of this encounter Care Teams Equipment Maintenance Superintendent Relationship Specialty Start Date End Date Salo Nye MD [address] [place] [address] [place] [id number] PCP - General 12/25/20 documented as of this encounter
--- OUTSIDE RECORDS SUMMARY | 2025-01-09 08:30 | XMS_ITS | Encounter Summary ---
Author Organization Healthcare Address [address] [place] [address] Care Team Providers Care Survival Specialist Name Role Phone Salo Nye MD Primary Care Provider [phone] Encounter Details Date Type Department Care Team (Late Contact Info) Description 01/09/2025 8:30 AM EDT Ancillary Procedure [facility] [address] [place] [address] Social History Tobacco Use Types [...] Description 07/15/2025 2:30 PM EST Office Visit [facility] [address] [place] [address] Vladislav Todd MD [address] [address] documented as of this encounter [...] documented as of this encounter Care Teams Survival Specialist Relationship Specialty Start Date End Date Salo Nye MD [address] [place] [address] [place] [address] PCP - General 12/25/20 documented as of this encounter
--- OUTSIDE RECORDS SUMMARY | 2025-01-27 07:45 | XMS_ITS ---
Author Organization [facility] Address 1210 [facility] [address] [phone] Care Team Providers Care Diesel Locomotive Firer/Fireman Name Role Phone Kobe Nye Primary Care Provider [phone] Allergies Allergen (clinical drug ingredient) Drug/Non Drug [...] [place] 2024 02:57:45 PM > faxed to [facility] Neurology Referral Priority Routine REASON FOR [...] Provider Diagnosis [facility] [address] [place] [facility] 36 [facility] [address] [place] [id number] 01/27/2025 Kobe Nye Memory loss R41.3 ; [...] Clifford er, 05/05/2025 10:00:00 AM, [address] [place] [facility] 36 [facility], [address], [place], [phone], Progress Notes * DEREK DEDOB:[birth year] (70 yo F)Acc No.[id number]:01/27/2025 Progress Notes Patient: T UCKER, DEREK Provider: Kobe Nye M.D. :1955 A ge:69 Y S ex:Female Date:01/27/2025 Address:[address] [facility] [address], [facility] Subjective: * Chief Complaints: * 1 . [...] work, COVID 19 Vaccine Pfizer, 08/03/20, 08/25/2020, Ppnopmec-yy-vkpp left forearm . * Surgical History: t ubal ligation 06/1988, lap/cholecystectomy 1997, ganglion cyst removal 1998, urologic surgery 1993, hysterectomy vaginal , colonoscopy, Dr. Biswas 12/31/03, skin biopsy from Left arm, Dr. Moss 09/01/2015, Lesion Removal From Tongue -Dr. Banks 11/23/2017, Halfuova-oa-vvim left forearm 2014, colonoscopy, Dr. Hart 2009. [...] (primary) hypertension - I10 3 . B [place] 24.0-24.9, adult - Z68.24 Plan: * Treatment: [...] * Images: Billing Information: * Visit Code: 73401 Office Visit, Est Pt., Level 3. * [...] of Kobe Nye MD on 02/27/2025 at 09:03 AM EDT Sign off status: Pending * Provider: Kobe Nye M.D. Date: 0 01/27/2025 Generated for Chon cedeño/Monae/eTransmitting on: 0 02/27/2025 09:03 AM EDT History and Physical Notes * [...]
--- OUTSIDE RECORDS SUMMARY | 2025-02-05 10:32 | XMS_ITS ---
Author Organization [facility] Address [address] [place] [phone] Care Team Providers Care Channel Worker Name Role Phone Kobe Nye Primary Care Provider [phone] REASON FOR VISIT BD and Mammo Encounters Encounter Location Date Provider Diagnosis [facility] 1210 [facility] 36 [facility] [address] [place] [phone] 02/05/2025 Kobe Nye Screening for osteoporosis Z13.820 [...] Name:Kobe Clifford er, 05/05/2025 10:00:00 AM, 1210 [facility] 36 [facility], [address], [place], [phone], Progress Notes * DEREK DEDOB:[birth year] (70 yo F)Acc No.[id number]:02/05/2025 Patient: DEREK GUERRERO :1955 A ge:69 Y S ex:Female Address:[address] [facility] [address], [place] [address] Subjective: * Chief Complaints: * B D [...] 11:52 :22 AM EDT > sent to [facility] for referral to [facility] * Procedure Codes: * true * Date: Generated for Chon cedeño/Monae/Alesmitting on: 0 02/27/2025 09:04 AM EDT
--- OUTSIDE RECORDS SUMMARY | 2025-02-27 09:04 | XMS_ITS | Clinical Summary ---
Author Organization Healthcare Address [address] [place] [address] Care Team Providers Care Woods Boss Name Role Phone Salo Nye MD Primary Care Provider [phone] Allergies Active Allergy Reactions Criticality Noted Date [...] Description 01/09/2025 8:30 AM EDT Ancillary Procedure [facility] [address] [place] [address] 01/09/2025 8:15 AM EDT Office Visit [facility] [address] [place] [address] Vladislav Todd MD Corneal deposit of both [...] Test (TB Skin Test) 02/05/2014, 01/22/2013,01/25/2012,06/24,07/13/2010,07/31/2009,08/20/2008 ,07/10/2007,07/31/2006,07/17/2006 [employer] Maps COVID-19 Vac cine (Purple Cap) 12+ 08/25/2020,08/03/2020 [...] Description 07/15/2025 2:30 PM EST Office Visit [facility] [address] [place] [address] Vladislav Todd MD [address] [place] [address] Health Maintenance Due Date Last [...] PPSV23, PCV20 or PCV21) 12/08/2021 11/24/2020, 12/08/2016 [id number] Vaccine (8 - Mixed Product risk season) [...] Last 3 Months Insurance MEDICARE Care Teams Woods Boss Relationship Specialty Start Date End Date Salo Nye MD [address] [place] [address] [facility] - General 12/25/20
--- OUTSIDE RECORDS SUMMARY | 2025-02-27 09:04 | XMS_ITS | Encounter Summary ---
Author Organization Healthcare Address [address] [place] [address] Care Team Providers Care Social Service Manager Name Role Phone Salo Nye MD Primary Care Provider [phone] Encounter Details Date Type Department Care Team [...] Description 07/15/2025 2:30 PM EST Office Visit [facility] [address] [place] [address] Vladislav Todd MD [address] [place] [address] documented as of this encounter Visit Diagnoses Not on filedocumented in this encounter Additional Health Concerns Assessment Noted Time A fall risk assessment has been complete d for the patient 05/08/2023 10:07 AM EDT A Body Mass Index follow-up plan has been documented for the patient 01/09/2025 10:13 AM EDT documented as of this encounter Care Teams Social Service Manager Relationship Specialty Start Date End Date Salo Nye MD [address] [place] [address] PCP - General 12/25/20 documented as of this encounter
--- OUTSIDE RECORDS SUMMARY | 2025-02-27 09:04 | XMS_ITS | Patient Health Record ---
Author Organization [facility] Address [address] [facility] [address] [id number] Care Team Providers Care Box Toe Flanger Stitchdowns Name Role Phone Kobe Nye Primary Care Provider [phone] Rea Vaughn Unavailable [phone] Shanique Blanco Unavailable [phone] Allergies Allergen (clinical drug ingredient) Drug/Non Drug [...] HDL 52 40-60 mg/dl CHLHDL 2.2 1-3.5 P-Lipid Panel Reviewed date:07/09/2024 03:52:39 PM Interpretation:chol 258, trigs 187, chol/hdl 4.45, non-hdl 200, ldl 163 Performing Lab: Notes/Report: Test performed by [facility] [address] [place] [address] , [address], [place] [address] Calin Simmons MD, [employer] CLIA: [id number] Cholesterol 258 <200 mg/dL Triglycerides 187 <150 [...] 30 Performing Lab: Notes/Report: Test performed by [facility] [address] [place] [address] [place] [address] Calin Simmons MD, [employer] CLIA: [id number] Sodium 139 135-145 mmol/L Potassium 3.8 3.5-5.3 [...] 0.4 <0.2-1.2 mg/dL A/G Ratio 2.0 1.1-2.5 P-Basic Metabolic Panel (BMP ) Reviewed date:05/16/2024 02:06:29 PM Interpretation:Normal Performing Lab: Notes/Report: Test performed by [facility] [address] [place] [address] [place] [address] Calin Simmons MD, [employer] CLIA: [id number] Sodium 141 135-145 mmol/L Potassium 3.5 3.5-5.3 [...] 1.010 Ketone Neg Bili Neg Gluc Neg H-BUN/CREAT Reviewed date:05/20/2024 03:13:43 PM Interpretation: Performing Lab: Notes/Report: BUN 28 7-17 mg/dl CREATT 0.90 0.52-1.04 mg/dl GFRAA 75 >60 ML/MIN EGFR 62 >60 ml/min BUN, Creatinine Reviewed date:05/20/2024 03:13:31 PM Interpretation: Performing Lab: Notes/Report: CBC Fingerstick [...] plat 168 100 - 400 Diarrhea Panel ([facility]) Reviewed date:05/08/2024 02:05:08 PM Interpretation: Performing Lab: [...] Not Detected NotDetected SAPOVIRUS Not Detected NotDetected EKG Reviewed date:10/11/2024 09:21:57 AM Interpretation:Abnormal Performing Lab: Notes/Report: Abnormal EKG Reviewed date:10/11/2024 09:21:57 AM Interpretation:Abnormal Performing Lab: Notes/Report: Abnormal Medications Medication SIG (Take, Route, Frequency, Duration) [...] Vaccine Route Administration Date Status Comme nts Zostavax IM Intramuscular 01/18/2017 Administered Tetanus Tdap-Adacel (over 7yrs) IM Intramuscular 06/14/2011 Administered Shingrix IM Intramuscular 04/05/2021 Administered Prevnar (PCV13) IM Intramuscular 11/24/2020 Administered PNEUMOVAX 23 VACCINE IM Intramuscular 12/08/2016 Administe red Hepatitis A (adult) IM Intramuscular 04/23/2005 Administer ed Hepatitis A (adult) Unknown 06/13/2018 Administered Fluzone High Dose (65yr and older) Unknown 05/28/2021 Administered DT, 7 YEARS OR OLDER IM Intramuscular 04/23/2005 Administe red COVID 19 Pfizer Unknown 08/03/2020 Administered COVID 19 Pfizer Unknown 08/25/2020 Administered COVID 19 Pfizer Unknown 05/12/2021 Administered Problems Problem Type SNOMED Code ICD Code Onset Dates Problem Status W/U Status Risk Notes Problem Essential hypertension (52287404) Essential (primary) hypertension (I10) Active confirmed Problem Hypertension (26435591) HTN (hypertension) (I10) Active confirmed Problem History of malignant melanoma of the skin (313573216369) History of melanoma (Z85.820) Active confirmed Problem Essential hypertension (54477311) Essential hypertension (I10) Active confirmed Problem Abnormal mammogram (350311535) Abnormal mammogram (R92.8) Active confirmed Problem Diverticulitis (84453218) Diverticulitis (K57.92) Active confirmed Problem Mixed anxiety and depressive disorder (690652255) Depression with anxiety (F41.8) Active confirmed Problem Memory loss (52907773) Memory loss (R41.3) Active confirmed Problem Primary insomnia (8685597) Primary insomnia (F51.01) Active confirmed Problem Restless legs syndrome (44872352) Restless legs syndrome (G25.81) Active confirmed Problem Diverticulitis of colon (686268320) Diverticulitis of large intestine without perforation or abscess without bleeding (K57.32) Active confirmed Problem Fibrocystic breast changes (49000715) Diffuse cystic mastopathy of right breast (N60.11) Active confirmed Problem Disorder of female genital organs (700497956) Other specified conditions associated with female genital organs and menstrual cycle (N94.89) Active confirmed Problem Postmenopausal atrophic vaginitis (57076907) Postmenopausal atrophic vaginitis (N95.2) Active confirmed Problem Rheumatoid arthritis (49815860) Rheumatoid arthritis involving multiple sites with positive rheumatoid factor (M05.79) Active confirmed Problem Hyperlipidaemia (06068790) Hyperlipidemia, unspecified hyperlipidemia type (E78.5) Active confirmed Problem Dyslipidemia (652408154) Dyslipidemia (E78.5) Active confirmed Problem Joint pain (71409270) Arthralgia, unspecified joint (M25.50) Active confirmed Problem Thyromegaly (2498721) Thyromegaly (E01.0) Active confirmed Problem Osteopenia (099782255) Osteopenia, unspecified location (M85.80) Active confirmed Problem Achrochordon (840662593) Achrochordon (L91.8) Active confirmed Problem Fibrocystic breast changes (14651993) Fibrocystic breast disease (FCBD), unspecified laterality (N60.19) Active confirmed Problem Neoplasm of tongue (393096604) 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) Active confirmed Problem Localized, 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 joint arthropathy (M19.019) Active confirmed Problem Osteopenia of neck of femur, unspecified laterality (M85.859) Active confirmed Problem Multiple premature ventricular complexes (disorder) (100581127) PVC's (premature ventricular contractions) (I49.3) Active confirmed Problem Disorder of cornea (13646552) Corneal abnormality (H18.9) Active confirmed Vital Signs Heart Rate 76 /min 01/27/2025 Blood pressure diastolic 80 mm Hg 01/27/2025 Height 62 in 01/27/2025 Blood pressure systolic 130 mm Hg 01/27/2025 Weight 131.4 lbs 01/27/2025 BMI 24.03 kg/m2 01/27/2025 Encounters Encounter Location Date Provider Diagnosis [facility] [address] [place] [facility] [address] [place] [id number] 03/12/2024 Rea Vaugh[facility]cle [facility] M79.10 [facility] [address] [place] [facility] [address] [place] [id number] 05/01/2024 Shanique Crowdy Left lower quadrant pain R10.32 [facility] [address] [place] [facility] [address] [place] [id number] 05/06/2024 Rea Vaughn Diarrhea R19.7 and Abdominal pain R10.9 [facility] [address] [place] [facility] [address] [place] [id number] 07/08/2024 J Saman Nye Essential hypertensi on I10 ; Restless legs syndrome G25.81 ; Rheumatoid arthritis involving multiple sites with positive rheumatoid factor M05.79 ; Primary insomnia F51.01 and Hyperlipidemia, unspecified hyperlipidemia type E78.5 [facility] [address] [place] [facility] [address] [place] [id number] 10/07/2024 Kobe Nye Essential hypertensi on I10 ; Restless legs syndrome G25.81 ; Acute midline low back pain without sciatica M54.50 ; Memory loss R41.3 and Heart palpitations R00.2 [facility] [address] [place] [facility] [address] [place] [id number] 11/04/2024 J Saman Nye PVC's (premature ventricular contractions) I49.3 ; Visual changes H53.9 ; Rheumatoid arthritis involving multiple sites with positive rheumatoid factor M05.79 ; Essential (primary) hypertension I10 ; Memory loss R41.3 and Near syncope R55 [facility] [address] [facility] [address] [place] [id number] 11/14/2024 J Saman Nye PVC's (premature ventricular contractions) I49.3 ; Dizziness R42 and BMI 25.0-25.9,adult Z68.25 [facility] [address] [place] [facility] [address] [place] [id number] 12/02/2024 J Saman Nye PVC's (premature ventricular contractions) I49.3 and BMI 24.0-24.9, adult Z68.24 [facility] [address] [place], [place] [id number] 01/27/2025 Kobe Nye Memory loss R41.3 ; Essential (primary) hypertension I10 and BMI 24.0-24.9, adult Z68.24 [facility] [address] [place] [id number] 03/12/2024 Kobe Nye [facility] [address] [facility] [address] [place] [id number] 03/12/2024 Kobe Nye [facility] [address] [facility] [address] [place] [id number] 03/14/2024 Rea Vaughn Muscle pain M79.10 [facility] [address] [facility] [address] [place] [id number] 07/09/2024 Kobe Nye [facility] [address] [facility] [address] [place] [id number] 08/08/2024 Kobe Nye Restless legs syndro me G25.81 [facility] [address] [facility] [address] [place] [id number] 10/11/2024 Kobe Nye Heart palpitations R00.2 [facility] [address] [facility] [address] [place] [id number] 11/06/2024 Kobe Nye [facility] [address] [facility] [address] [place] [id number] 11/18/2024 Kobe Nye Primary insomnia F51 .01 [facility] [address] [facility] [address] [place] [id number] 02/05/2025 Kobe Nye Screening for osteoporosis Z13.820 and Screening for breast cancer Z12.39 [facility] [address] [facility] [address] [place] [id number] 02/17/2025 Kobe Nye Assessments Encounter Date Diagnosis [...] ventricular contractions) (ICD-10 - I49.3) ADMIT TO [facility] OBS FOR DYSRRHYTHMIA, NEAR SYNCOPE, CHEST PAIN [...] I10) 01/27/2025 Memory loss (ICD-10 - R41.3) 02/05/2025 Screening for breast cancer (ICD-10 - Z12.39) 02/05/2025 Screening for osteoporosis (ICD-10 - Z13.820) 01/27/2025 BMI 24.0-24.9, adult (ICD-10 - Z68.24) [...] [address], [place], [id number], Insurance Providers Payer Name Payer Address Payer Phone Subscriber Number Group Number Insured Name Patient Relationship to Insured Coverage Start Date Coverage End Date [employer] [address] [address] [place], [place] [id number] [place], [place] Self - patient is the insured Medications Administered Medication Instructions Date of Administration Dosage Notes Depo- Medrol 40 mg/ml 12/03/2012 Dexamethasone 12/26/2017 1 mL Dexamethasone 12/31/2022 1 mL Medical (General) History Medical History History ICD Code diverticulosis herpes simplex I urethral syndrome/chronic cystitis left anterior fascicular block on EKG flu shot 2017 at work COVID 19 Vaccine Pfizer, 08/03/20, 2020 [id number] left forearm Surgical History Surgery Date(Month/Year) tubal ligation 06/1988 lap/cholecystectomy 1997 ganglion cyst removal 1998 urologic surgery 1993 hysterectomy vaginal colonoscopy, Dr. Biswas 12/31/03 skin biopsy from Left arm, Dr. Moss Lesion Removal From Tongue -Dr. Banks 11/23/2017 Xfymhguw-yn-qwlz left forearm 2014 colonoscopy, Dr. Hart 2009 Hospitalization History Reason Date(Month/Year) [facility]-diverticulosis 11/04 to 11/06/08
--- OUTSIDE RECORDS SUMMARY | 2025-02-27 09:04 | XMS_ITS | Encounter Summary ---
Author Organization Healthcare Address [address] [place] [address] Care Team Providers Care Cognos Report Developer Name Role Phone Salo Nye MD Primary Care Provider [phone] Encounter Details Date Type Department Care Team [...] Description 07/15/2025 2:30 PM EST Office Visit [facility] [address] [place] [address] Vladislav Todd MD [address] [place] [address] documented as of this encounter Visit Diagnoses Not on filedocumented in this encounter Additional Health Concerns Assessment Noted Time A fall risk assessment has been complete d for the patient 05/08/2023 10:07 AM EDT A Body Mass Index follow-up plan has been documented for the patient 06/07/2024 12:24 PM EDT documented as of this encounter Care Teams Cognos Report Developer Relationship Specialty Start Date End Date Salo Nye MD [address] [place] [address] PCP - General 12/25/20 documented as of this encounter
== END 2025-02-27 23:59 | disposition home or self-care (01) ==
PROVIDERS: PCP Family Medicine; Visit Provider Internal Medicine
DX: I10 Essential (primary) hypertension (principal); R19.7 Diarrhea, unspecified
CPT/HCPCS: 87177

== ENCOUNTER 2025-03-12 08:41 | Outpatient (CLI) | payer MEDICARE, SELFPAY ==
--- OUTSIDE RECORDS SUMMARY | 2024-12-02 07:00 | XMS_ITS ---
Author [facility] Address [address] [facility] [address] [phone] Care Team Providers Care Tie Tape Machine Operator Name Role Phone Kobe Nye Primary Care Provider [phone] Allergies Allergen (clinical drug ingredient) Drug/Non Drug [...] Encounter Location Date Provider Diagnosis [facility] [address] [facility] 36 [facility] [address] [place], [place] [phone] 12/02/2024 Kobe Nye PVC's (premature ventricular contractions) [...] 6 Weeks, Reason: Provider Name:Kobe Clifford er, 05/05/2025 10:00:00 AM, [address] [facility] 36 [facility], [address], [place], [place], [id number], Progress Notes * KENISHA, DEREKDOB:[birth year] (70 yo F)Acc No.[id number]:12/02/2024 Progress Notes Patient: DEREK GUERRERO Provider: Kobe Nye M.D. :1955 A ge:69 Y S ex:Female Date:12/02/2024 Address:[address] [place] [address], [facility] Subjective: * Chief Complaints: * 1 . [...] work, COVID 19 Vaccine Pfizer, 08/03/20, 08/25/2020, Hlqkjagz-mx-pgez left forearm . * Surgical History: t ubal ligation 06/1988, lap/cholecystectomy 1997, ganglion cyst removal 1998, urologic surgery 1993, hysterectomy vaginal , colonoscopy, Dr. Biswas 12/31/03, skin biopsy from Left arm, Dr. Moss 09/01/2015, Lesion Removal From Tongue -Dr. Banks 11/23/2017, Joirfsqk-ie-sjeg left forearm 2014, colonoscopy, Dr. Hart 2009. [...] leg edema. Assessment: * Assessment: 1. B MD 24.0-24.9, adult - Z68.24 2 . P VC's (premature ventricular contractions) - I49.3 Plan: * Treatment: * Procedure Codes: G 2211 Complex e/m visit add on, 3077F SYST BP = 140 MM HG6 IT, 3080F DIAST BP = 90 MM HG * Follow Up: 6 Weeks * Images: Billing Information: * Visit Code: 04975 Office Visit, Est Pt., Level 3. * Procedure Codes: G2211 Complex e/m visit add on. 3077F SYST BP = 140 MM HG6 IT. 3080F DIAST BP = 90 MM HG. * Electronic signature of Kobe Nye MD on 03/12/2025 at 08:44 AM EDT Sign off status: Pending * Provider: Kobe Nye M.D. Date: 0 12/02/2024 Generated for Chon cedeño/Monae/Sienna on: 0 03/12/2025 08:44 AM EDT History and Physical Notes * [...]
--- OUTSIDE RECORDS SUMMARY | 2025-01-27 07:45 | XMS_ITS ---
Author Organization [facility] Address 1210 [facility] [address] [phone] Care Team Providers Care Access Coordinator Name Role Phone Kobe Nye Primary Care [...] [place] 2024 02:57:45 PM > faxed to [facility] Neurology Referral Priority Routine REASON FOR [...] Location Date Provider Diagnosis [facility] [address] [place] [facility] 36 [facility] [address] [place] [phone] 01/27/2025 Kobe Nye Memory loss R41.3 ; [...] Clifford er, 05/05/2025 10:00:00 AM, [address] [place] [facility] 36 [facility], [address], [place], [phone], Progress Notes * DEREK DEDOB:[birth year] (70 yo F)Acc No.[id number]:01/27/2025 Progress Notes Patient: T UCKER, DEREK Provider: Kobe Nye M.D. :1955 A ge:69 Y S ex:Female Date:01/27/2025 Address:[address] [facility] [address], [facility] Subjective: * Chief Complaints: * 1 . [...] work, COVID 19 Vaccine Pfizer, 08/03/20, 08/25/2020, Vejoafjh-wn-xpfe left forearm . * Surgical History: t ubal ligation 06/1988, lap/cholecystectomy 1997, ganglion cyst removal 1998, urologic surgery 1993, hysterectomy vaginal , colonoscopy, Dr. Biswas 12/31/03, skin biopsy from Left arm, Dr. Moss 09/01/2015, Lesion Removal From Tongue -Dr. Banks 11/23/2017, Wezepqnh-ut-rimr left forearm 2014, colonoscopy, Dr. Hart 2009. [...] (primary) hypertension - I10 3 . B [place] 24.0-24.9, adult - Z68.24 Plan: * Treatment: [...] * Images: Billing Information: * Visit Code: 69582 Office Visit, Est Pt., Level 3. * [...] EDT Sign off status: Pending * Provider: Koeb Nye M.D. Date: 0 01/27/2025 Generated for Chon cedeño/Monae/eTransmitting on: 0 03/12/2025 08:44 AM EDT History [...]
--- OUTSIDE RECORDS SUMMARY | 2025-02-05 10:32 | XMS_ITS ---
Author Organization [facility] Address [address] [place] [phone] Care Team Providers Care Chain Saw Operator Name Role Phone Kobe Nye Primary Care Provider REASON FOR VISIT BD and Mammo Encounters Encounter Location Date Provider Diagnosis [facility] 1210 [facility] 36 [facility] [address] [place] [phone] 02/05/2025 Kobe Nye Screening for osteoporosis Z13.820 and Screening for breast cancer Z12.39 Assessments Encounter Date Diagnosis (ICD Code) Assessment Notes Treatment Notes Treatment Clinical Notes Section Notes 02/05/2025 Screening for osteoporosis (ICD-10 - Z13.820) 02/05/2025 Screening for breast cancer (ICD-10 - Z12.39) Plan Of Treatment Pending Test Test Name Order Date Bone density 02/05/2025 Mammogram 02/05/2025 Next Appt Details Provider Name:Kobe Clifford er, 05/05/2025 10:00:00 AM, 1210 [facility] 36 [facility], [address], [place], [id number], Progress Notes * DEREK DEDOB:[birth year] (70 yo F)Acc No.[id number]:02/05/2025 Patient: DEREK GUERRERO :1955 A ge:69 Y S ex:Female Address:[address] [facility] [address], [place] [address] Subjective: * Chief Complaints: * B D and Mammo * Medical History: * Surgical History: * Hospitalization/Major Diagno stic Procedure: * Medications: Objective: * Vitals: * Physical Examination: Assessment: * Assessment: 1. S creening for osteoporosis - Z13.820 (Primary) 2 . S creening for breast cancer - Z12.39 Plan: * Treatment: 2.?Screening for breast cancer?Imaging: Mammogram* Jenny Garcia 02/17/2025 11:52 :22 AM EDT > sent to [facility] for referral to [facility] * Procedure Codes: * true * Date: Generated for Chon cedeño/Monae/Alesmitting on: 0 03/12/2025 08:44 AM EDT
--- OUTSIDE RECORDS SUMMARY | 2025-03-12 08:44 | XMS_ITS | Encounter Summary ---
Author Organization [facility] Address [address] [place] [address] Care Team Providers Care Disease Intervention Specialist Name Role Phone Salo Nye MD Primary Care Provider [phone] Reason for Visit * Reason Comments Med Refill Encounter Details Date Type Department Care Team (Late st Contact Info) Description 01/11/[address] [facility] [address] [address] Mago Love APRN [address] [id number] Rheumatoid arthritis involving multiple sites with positive rheumatoid factor; Encounter for long-term (current) use of high-risk medication Social History Tobacco Use Types Packs/Day Years Used Date Smoking Tobacco: Never Passive Smoke Exposure: Never Smokeless Tobacco: Never Alcohol Use Standard Drinks/Week Comments Yes 1 (1 standard drink = 0.6 oz pur e alcohol) Comments Unknown Sex and Gender Information Value Date Recorded Sex Assigned at Female 11/06/2024 9:12 AM EDT Legal Sex Female 10:37 AM EDT Gender Identity Not on file Sexual Orientation Choose not to disclose 2024 9:12 AM EDT documented as of this encounter Miscellaneous Notes * Telephone Encounter - Britany Lechuga MA - 01/13/2025 4:00 PM EDT Rx Refill Note Requested Prescriptions Refused Prescriptions Disp Refills leflunomide (ARAVA) 20 MG tablet [Pharmacy Med Name: leflunomide 20 mg tablet] 30 tablet 4 Sig: TAKE ONE TABLET BY MOUTH EVERY DAY Last office visit with prescribing clinician: 11/12/2024 Last telemedicine visit with prescribing clinician: Visit date not found Next office visit with prescribing clinician: Visit date not found Refill sent X4 on 11/12/24 per APRN. Britany Cordova MA 01/13/25, 16:01 EDT documented in this encounter Plan of Treatment Upcoming Encounters Date Type Department Care Team (Late st Contact Info) Description 04/23/2025 8:45 AM EDT Office Visit [facility] [address] [phone] Jesus Vasquez DO [address] [address] documented as of this encounter Visit Diagnoses Diagnosis Rheumatoid arthritis involving multiple sites with positive rheumatoid factor Encounter for long-term (current) use of high-risk medication Encounter for long-term (current) use of other medications documented in this encounter Care Teams Disease Intervention Specialist Relationship Specialty Start Date End Date Salo Nye MD [address] [facility] [address] [facility] [address] [place] [address] PCP - General Family Medicine 08/02/23 documented as of this encounter
--- OUTSIDE RECORDS SUMMARY | 2025-03-12 08:44 | XMS_ITS | Patient Health Record ---
Author Organization [facility] Address [address] [facility] [address] [phone] Care Team Providers Care Environmental Health And Safety Manager Name Role Phone Kobe Nye Primary Care Provider [phone] Rea Vaughn Unavailable [phone] Shanique Blanco Unavailable [phone] Allergies Allergen (clinical drug ingredient) Drug/Non Drug Allergy documented on EMR Reaction Allergy Type Onset Date Status fentanyl fentaNYL Unknown Drug Allergy Active tolmetin Tolmetin hives Drug Allergy Active Results Component Value Reference Range Notes Urinalysis - Inhouse Reviewed date:05/03/2024 12:22:25 AM Interpretation: Performing Lab: Notes/Report: Color/Clarity yellow/clear Leuk Neg Nitrite Neg Urobili 3.2 Protein Neg pH 6.5 Blood Neg Sp. Gr. 1.010 Ketone Neg Bili Neg Gluc Neg CBC Venipuncture (in house) Reviewed date:05/03/2024 12:22:35 [...] - 38 platlet 257 100 - 400 P-Basic Metabolic Panel (BMP ) Reviewed date:05/16/2024 02:06:29 PM Interpretation:Normal Performing Lab: Notes/Report: Test performed by [facility] [address] [facility] , [address], [place] [address] Calin Simmons MD, Hand [employer] CLIA: [id number] Sodium 141 135-145 mmol/L Potassium 3.5 3.5-5.3 mmol/L Chloride 102 97-108 mmol/L CO2 30 22-32 mmol/L Glucose 85 65-99 mg/dL BUN 15 8-23 mg/dL Creatinine 0.92 0.50-1.00 mg/dL Calcium 9.3 8.6-10.4 mg/dL eGFR by Creatinine 67 >59 mL/min/1.73m2 H-Cardiac Enzymes Reviewed date:11/05/2024 09:42:57 AM Interpretation: [...] Performing Lab: Notes/Report: TSH 1.29 0.465-4.68 uIU/mL EKG Reviewed date:10/11/2024 09:21:57 AM Interpretation:Abnormal Performing Lab: Notes/Report: Abnormal EKG Reviewed date:10/11/2024 09:21:57 AM Interpretation:Abnormal Performing Lab: Notes/Report: Abnormal P-Lipid Panel Reviewed date:07/09/2024 03:52:39 PM Interpretation:chol 258, trigs 187, chol/hdl 4.45, non-hdl 200, ldl 163 Performing Lab: Notes/Report: Test performed by [facility] [address] [place] [address] , [place] [address] Calin Simmons MD, Hand [employer]rella [employer]pper [facility]: [id number] Cholesterol 258 <200 mg/dL Triglycerides 187 <150 [...] 30 Performing Lab: Notes/Report: Test performed by [facility], [address] , [address], [place] [address] Calin Simmons MD, Hand [employer]rella [employer]pper CLIA: [id number] Sodium 139 135-145 mmol/L Potassium 3.8 3.5-5.3 [...] 0.4 <0.2-1.2 mg/dL A/G Ratio 2.0 1.1-2.5 H-Lipid Panel Reviewed date:11/05/2024 09:42:57 AM Interpretation: Performing Lab: Notes/Report: TRIG 111 30-150 mg/dl CHOL 115 140-200 mg/dl DLDL 35.18 100-129 mg/dL VLDL 22 0-40 mg/dL HDL 52 40-60 mg/dl CHLHDL 2.2 1-3.5 H-Diarrhea 6-11 Panel, Cdiff PCR Reviewed date:05/09/2024 [...] Not Detected NotDetected SAPOVIRUS Not Detected NotDetected CBC Fingerstick (in house) Reviewed date:05/06/2024 12:50:49 [...] plat 168 100 - 400 Diarrhea Panel ([facility]) Reviewed date:05/08/2024 02:05:08 PM Interpretation: Performing Lab: Notes/Report: CT scan : abdomen and pelvis w/ and w/o contrast (urography) Reviewed date:05/22/2024 02:16:09 PM Interpretation:hepatic and renal cysts Performing Lab: Notes/Report: hepatic and renal cysts BUN, Creatinine Reviewed date:05/20/2024 03:13:31 PM Interpretation: Performing Lab: Notes/Report: H-BUN/CREAT Reviewed date:05/20/2024 03:13:43 PM Interpretation: Performing Lab: Notes/Report: BUN 28 7-17 mg/dl CREATT 0.90 0.52-1.04 mg/dl GFRAA 75 >60 ML/MIN EGFR 62 >60 ml/min Medications Medication SIG (Take, Route, Frequency, Duration) Notes Start Date End Date Status Raloxifene HCl 60 mg TAKE ONE TABLET BY MOUTH EVERY DAY; Duration: 30 Active DULoxetine HCl 30 mg 1 capsule orally on ce a day; Duration: 30 days Active ONE A DAY FOR WOMEN 1 [...] at bedtime as needed Orally Once a day; Duration: 30 days Active Align 4 MG 1 cap(s) orally [...] W/U Status Risk Notes Problem Essential hypertension (22276951) Essential (primary) hypertension (I10) Active confirmed Problem Hypertension (86155813) HTN (hypertension) (I10) Active confirmed Problem History of malignant melanoma of the skin (587671513386) History of melanoma (Z85.820) Active confirmed Problem Essential hypertension (32243966) Essential hypertension (I10) Active confirmed Problem Abnormal mammogram (494751992) Abnormal mammogram (R92.8) Active confirmed Problem Diverticulitis (68303902) Diverticulitis (K57.92) Active confirmed Problem Mixed anxiety and depressive disorder (575685974) Depression with anxiety (F41.8) Active confirmed Problem Memory loss (83062810) Memory loss (R41.3) Active confirmed Problem Primary insomnia (1903966) Primary insomnia (F51.01) Active confirmed Problem Restless legs syndrome (42473011) Restless legs syndrome (G25.81) Active confirmed Problem Diverticulitis of colon (225398881) Diverticulitis of large intestine without perforation or abscess without bleeding (K57.32) Active confirmed Problem Fibrocystic breast changes (49114585) Diffuse cystic mastopathy of right breast (N60.11) Active confirmed Problem Disorder of female genital organs (692285982) Other specified conditions associated with female genital organs and menstrual cycle (N94.89) Active confirmed Problem Postmenopausal atrophic vaginitis (09151917) Postmenopausal atrophic vaginitis (N95.2) Active confirmed Problem Rheumatoid arthritis (70946155) Rheumatoid arthritis involving multiple sites with positive rheumatoid factor (M05.79) Active confirmed Problem Hyperlipidaemia (11584928) Hyperlipidemia, unspecified hyperlipidemia type (E78.5) Active confirmed Problem Dyslipidemia (480957506) Dyslipidemia (E78.5) Active confirmed Problem Joint pain (34348089) Arthralgia, unspecified joint (M25.50) Active confirmed Problem Thyromegaly (2099496) Thyromegaly (E01.0) Active confirmed Problem Osteopenia (240207524) Osteopenia, unspecified location (M85.80) Active confirmed Problem Achrochordon (980987635) Achrochordon (L91.8) Active confirmed Problem Fibrocystic breast changes (60023486) Fibrocystic breast disease (FCBD), unspecified laterality (N60.19) Active confirmed Problem Neoplasm of tongue (863117900) 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) Active confirmed Problem Localized, primary osteoarthritis of the shoulder region (597187140) AC joint arthropathy (M19.019) Active confirmed Problem Osteopenia of neck of femur, unspecified laterality (M85.859) Active confirmed Problem Multiple premature ventricular complexes (disorder) (858934780) PVC's (premature ventricular contractions) (I49.3) Active confirmed Problem Disorder of cornea (46539378) Corneal abnormality (H18.9) Active confirmed Vital Signs Heart Rate 76 /min 01/27/2025 Blood pressure diastolic 80 mm Hg 01/27/2025 Height 62 in 01/27/2025 Blood pressure systolic 130 mm Hg 01/27/2025 Weight 131.4 lbs 01/27/2025 BMI 24.03 kg/m2 01/27/2025 Encounters Encounter Location Date Provider Diagnosis [facility] [address] [place] [id number] 03/12/2024 Rea Vaughn Muscle pain M79.10 [facility] [address] [place] [id number] 05/01/2024 Shanique Crowdy Left lower quadrant pain R10.32 [facility] [address] [place] [id number] 05/06/2024 Rea Vaughn Diarrhea R19.7 and Abdominal pain R10.9 [facility] [address] [place] [id number] 07/08/2024 J Saman Nye Essential hypertensi on I10 ; Restless legs syndrome G25.81 ; Rheumatoid arthritis involving multiple sites with positive rheumatoid factor M05.79 ; Primary insomnia F51.01 and Hyperlipidemia, unspecified hyperlipidemia type E78.5 [facility] [facility] [address] [place] [id number] 10/07/2024 Kobe Nye Essential hypertensi on I10 ; Restless legs syndrome G25.81 ; Acute midline low back pain without sciatica M54.50 ; Memory loss R41.3 and Heart palpitations R00.2 [facility] [facility] [address] [place] [id number] 11/04/2024 J Saman Nye PVC's (premature ventricular contractions) I49.3 ; Visual changes H53.9 ; Rheumatoid arthritis involving multiple sites with positive rheumatoid factor M05.79 ; Essential (primary) hypertension I10 ; Memory loss R41.3 and Near syncope R55 [facility] [facility] [address] [place] [id number] 11/14/2024 J Saman Nye PVC's (premature ventricular contractions) I49.3 ; Dizziness R42 and BMI 25.0-25.9,adult Z68.25 [facility] [address] [place] [id number] 12/02/2024 J Saman Nye PVC's (premature ventricular contractions) I49.3 and BMI 24.0-24.9, adult Z68.24 [facility] [address] [place], [place] [id number] 01/27/2025 Kobe Nye Memory loss R41.3 ; Essential (primary) hypertension I10 and BMI 24.0-24.9, adult Z68.24 [facility] [address] [place], [place] [id number] 03/12/2024 Kobe Nye [facility] [address] [facility] [address] [place], [place] [id number] 03/12/2024 Kobe Nye [facility] [address] [facility] [address] [place], [place] [id number] 03/14/2024 Rea Vaughn Muscle pain M79.10 [facility] [address] [facility] [address] [place], [place] [id number] 07/09/2024 Kobe Nye [facility] [address] [facility] [address] [place], [place] [id number] 08/08/2024 Kobe Nye Restless legs syndro me G25.81 [facility] [address] [facility] [address] [place] [id number] 10/11/2024 Kobe Nye Heart palpitations R00.2 [facility] [address] [facility] [address] [place] [id number] 11/06/2024 Kobe Nye [facility] [address] [facility] [address] [place], [place] [id number] 11/18/2024 Kobe Nye Primary insomnia F51 .01 [facility] [address] [facility] [address] [place], [place] [id number] 02/05/2025 Kobe Nye Screening for osteoporosis Z13.820 and Screening for breast cancer Z12.39 [facility] [address] [facility] [address] [place], [place] [id number] 02/17/2025 Kobe Nye Assessments Encounter Date Diagnosis [...] ventricular contractions) (ICD-10 - I49.3) ADMIT TO [facility] OBS FOR DYSRRHYTHMIA, NEAR SYNCOPE, CHEST [...] [address], [place], [id number], Insurance Providers Payer Name Payer Address Payer Phone Subscriber Number Group Number Insured Name Patient Relationship to Insured Coverage Start Date Coverage End Date [employer] [address] [address] [place], [place] [id number] [place], [place] Self - patient is the insured Medications Administered Medication Instructions Date of Administration Dosage Notes Depo- Medrol 40 mg/ml 12/03/2012 Dexamethasone 12/26/2017 1 mL Dexamethasone 12/31/2022 1 mL Medical (General) History Medical History History ICD Code diverticulosis 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 Biswas 12/31/03 skin biopsy from Left arm, Dr. Moss Lesion Removal From Tongue -Dr. Banks 11/23/2017 [facility] left forearm 2014 colonoscopy, Dr. Hart 2009 Hospitalization History Reason Date(Month/Year) [facility]-diverticulosis 11/04 to 11/06/08
--- OUTSIDE RECORDS SUMMARY | 2025-03-12 08:44 | XMS_ITS | Encounter Summary ---
Author Organization [facility] Address [address] [place] [address] Care Team Providers Care Sdet Name Role Phone Salo Nye MD Primary Care Provider [phone] Encounter Details Date Type Department Care Team (Late st Contact Info) Description 11/13/2024 Results Follow-Up [facility] [address] [phone] Mago Love APRN [address] [phone] Social History Tobacco Use Types Packs/Day Years [...] AM EDT documented as of this encounter Plan of Treatment Upcoming Encounters Date Type Department Care Team (Late st Contact Info) Description 04/23/2025 8:45 AM EDT Office Visit [facility] [address] [phone] Jesus Vasquez DO [address] [phone] documented as of this encounter Visit Diagnoses Not on filedocumented in this encounter Care Teams Sdet Relationship Specialty Start Date End Date Salo Nye MD [address] [facility] [address] [facility] 2 [place] [address] PCP - General Family Medicine 08/02/23 documented as of this encounter
--- NOTE | 2025-03-12 08:45 | XR_ITS ---
FINAL REPORT TECHNIQUE: Bone densitometry calculations of the lumbar spine and bilateral hips were obtained. CLINICAL HISTORY: SCREENING COMPARISON: 01/17/2023 FINDINGS: Using L1-4, the bone mineral density of the spine is 1.046 g/cm2, corresponding to T-score of 0.0 and a Z score of 2.1. This is within the range of normal. Using the left hip, the bone mineral density of the femoral neck is 0.824 g/cm2, corresponding to a T-score of -1.0 and a Z-score of 0.5. This is within the range of osteopenia. Using the right hip, the bone mineral density of the femoral neck is 0.683 g/cm?, corresponding to a T-score of -1.5 and a Z-score of 0.3. This is within the range of osteopenia. NOTE: T-score: Standard deviation compared with peak bone mass of young adult mean. *Following the recommendations of the International Society of Bone densitometry, classification of hip BMD is based on the lower of two T-scores; total hip or femoral neck. IMPRESSION: 1. Bone mineral density of the lumbar spine within the range of normal. 2. Bone mineral density of the bilateral femoral necks within the range of osteopenia. Reviewed, Interpreted and Dictated by Hortencia Norwood MD Transcribed by Piper Copeland Authenticated and [facility]
--- OUTSIDE RECORDS SUMMARY | 2025-03-12 08:45 | XMS_ITS | Clinical Summary ---
Author Organization [facility] Address [address] [place] [address] Care Team Providers Care Plumber Assistant Name Role Phone Salo Nye MD Primary Care Provider [phone] Allergies Active Allergy Reactions Criticality Noted Date Comments Fentanyl Itching,Unknown (See Comments) Medium 12/31 Severe itching Tolmetin Rash,Unknown (See Comments) Low 09/01/19 16 Medications Bacillus Coagulans-Inuli n (Probiotic) 1-250 BILLION-MG capsule 08/14/2022 Active Multiple Vitamins-Minera ls (Multivitamin Gummies Adult) chewable tablet Daily. Acti ve raloxifene (EVISTA) 60 MG tablet Take 1 tablet by mouth Daily. 07/19/2023 Active leflunomide (ARAVA) 20 MG tabletIndicatio ns:Rheumatoid arthritis involving multiple sites with positive rheumatoid factor,Encounte r for long-term (current) use of high-risk medication Take 1 tablet by mouth Daily. 30 tablet 4 11/12/2024 Active DULoxetine (CYMBALTA) 30 MG capsule Take 1 capsule by mouth Daily. 10/07/2024 Active traZODone (DESYREL) 50 MG tablet Take 1 tablet by mouth Every Night. 09/25/2024 Active PROBIOTIC PRODUCT PO Take 1 capsule by mouth Daily. Active Active Problems Problem Noted Date Diagnosed Date Postmenopause 11/12/2024 Assessment & Plan (11/12/2024 11:44 AM EDT): We ordered DEXA as below History of bone density study 11/12/2024 Assessment & Plan (11/12/2024 11:44 AM EDT): Previously followed by PCP. She reports she has been on Evista for several years. We will order DEXA today Recommend continue close follow-up with PCP regarding results and treatment options Encourage daily weightbearing exercise Encouraged daily calcium and vitamin D supplementation if not contraindicated Encounter for long-term (cur rent) use of high-risk medication 04/23/2024 Assessment & Plan (11/06/2024 12:58 PM EDT): * Leflunomide 20 mg PO once/day for RA * 1st prescribed 07/17/23. 1. CBC and CMP every 8-12 weeks to monitor for medication toxicity. 2. No recent serious infections Assessment & Plan (04/23/2024 10:36 AM EDT): * Leflunomide 20 mg PO once/day for RA * 1st prescribed 07/17/23. 1. CBC and CMP every 8-12 weeks to monitor for medication toxicity. 2. No recent serious infections EVONNE positive 04/17/2024 Osteoarthritis 04/17/2024 Assessment & Plan (11/12/2024 11:27 AM EDT): 1. Tylenol PRN is ok as directed 2. She has tried oral NSAIDS like meloxicam and sulindac. Would avoid further NSAIDs with renal insufficiency. 3. She has seen Rheumatology 4. She saw an orthopaedic surgeon 5. She has had a shoulder injection 6. She has occasional left knee pain. No swelling or warmth or erythema. She does not feel that it is bad enough currently to warrant further workup. 7. She is on duloxetine from other provider Assessment & Plan (04/24/2024 10:08 AM EDT): 1. Tylenol PRN is ok as directed 2. She has tried oral NSAIDS like meloxicam and sulindac. Would avoid further NSAIDs with renal insufficiency. 3. She has seen Rheumatology 4. She saw an orthopaedic surgeon 5. She has had a shoulder injection 6. She has occasional left knee pain. No swelling or warmth or erythema. She does not feel that it is bad enough currently to warrant further workup. Rheumatoid arthritis 04/17/2024 Assessment & Plan (11/12/2024 11:15 AM EDT): * 08/18/21: CMP was fine, SPEP was ok, DS DNA 10 (0-9), CONTACT LENS CUTTER normal, Li normal, SSA and SSB normal, TSH normal, ESR normal, PTH normal, Uric acid normal, CBC was ok * Medications/treatments/interventions tried include: Tylenol, Mobic, Sulindac, she saw [facility], she has seen an bus greaser, Nicolasa, she saw an orthopaedic surgeon, leflunomide, shoulder injection * 11/02/21 IgM RF +, CCP negative. 1. Continue/refill leflunomide 2. 04/24/24 labs with stable, mild renal insufficiency. Recheck labs today. 3. Follow up in 4 months 4. Her prognosis seems good Assessment & Plan (04/23/2024 10:37 AM EDT): * 08/18/21: CMP was fine, SPEP was ok, DS DNA 10 (0-9), CONTACT LENS CUTTER normal, Li normal, SSA and SSB normal, TSH normal, ESR normal, PTH normal, Uric acid normal, CBC was ok * Medications/treatments/interventions tried include: Tylenol, Mobic, Sulindac, she saw Rheumatology, she has seen an bus greaser, Nicolasa, she saw an orthopaedic surgeon, leflunomide, shoulder injection * 11/02/21 IgM RF +, CCP negative. 1. Continue/refill leflunomide 2. Check labs today 3. Follow up in months 4. Her prognosis seems good 5. 11/14/23 labs with stable, mild renal insufficiency Arthritis of left acromioclavicular joint 2022 Left shoulder pain 08/10/2023 Impingement syndrome of left shoulder 08/10/2023 Bursitis of left shoulder 08/10/2023 Glaucoma suspect of both eyes 11/02/2022 Age-related nuclear cataract of both eyes 2019 Diverticulitis 04/21/2020 Melanoma 08/27/2015 Encounters Date Type Department Care Team Description 02/04/[address] [facility] [address] [phone] Mago Love APRN Rheumatoid arthritis involving multiple sites with positive rheumatoid factor; Encounter for long-term (current) use of high-risk medication 01/11/[address] [facility] [address] [phone] Mago Love APRN Rheumatoid arthritis involving multiple sites with positive rheumatoid factor; Encounter for long-term (current) use of high-risk medication from Last 3 Months Immunizations Immunization Administration Dates Next Due COVID-19 (UNSPECIFIED) 04/28/2021 Influenza, Unspecified 05/26/2021 Family History Medical History Relation Name Comments Cancer Father Maximus Ballardead Lung Diabetes Father Maximus Gainesd Heart disease Father Maximus Lin Alzheimer's disease Mother Thea Ballardead Arthritis Mother Thea Ballardead Hypertension Mother Thea Ballardead Osteoporosis Mother Thea Ballardead Multiple hip fractures Rheumatologic disease Mother Thea Kinkead Breast cancer Sister Christelle Kinkead Cancer Sister Christelle Kinkead Sister Hypertension Sister Christelle Kinkead Relation Name Status Comments Father Maximus Lin Mother Thea Gainesd Sister Christelle Gainesd Social History Tobacco Use Types Packs/Day Years [...] not to disclose 2024 9:12 AM EDT Last Filed Vital Signs Vital Sign Reading Time Taken Comments Blood Pressure 120/66 11/12/2024 11:20 AM EDT Pulse 82 11/12/2024 11:20 AM EDT Temperature 36.7 C (98.1 F) 11/12/2024 11:20 AM EDT Respiratory Rate - - Oxygen Saturation - - Inhaled Oxygen Concentration - - Weight 64.1 kg (141 lb 4.8 oz) 11/12/2024 11:20 AM EDT Height 160 cm (5' 3 ) 11/12/2024 11:20 AM EDT Body Mass Index 25.03 11/12/2024 11:20 AM EDT Plan of Treatment Upcoming Encounters Date Type Department Care Team (Late st Contact Info) Description 04/23/2025 8:45 AM EDT Office Visit [facility] [address] [facility] [address] [place] [address] Jesus Vasquez DO [address] [facility] [address] [place] [address] Health Maintenance Due Date Last Done Comments DXA SCAN 1955 MAMMOGRAM 1995 COLOGUARD 02/09/2000 COLON CANCER SCREENING 5 YEA R SIGMOIDOSCOPY 02/09/2000 COLONOSCOPY 02/09/2000 COLORECTAL CANCER SCREENING 02/09/2000 CT COLONOGRAPHY 02/09/2000 FECAL OCCULT BLOOD TEST 02/09/2000 FIT Testing (1 year) 02/09/2000 ZOSTER VACCINE (3 of 3) 05/31/2021 04/05/2021, 01/18 TDAP/TD VACCINES (3 - Td or Tdap) 06/14/2021 011, 04/23/2005 ANNUAL WELLNESS VISIT 08/10/2023 HEPATITIS C SCREENING 08/10/2023 COVID-19 Vaccine (8 - 2 5 season) 2024 05/20/2024, 06/19/2023, 06/08/2022, Additional history exists INFLUENZA VACCINE 05/14/2025 05/20/2024, , 05/28/2021, Additional history exists Pneumococcal Vaccine 50+ (3 of 3 - PCV20 or PCV21) 11/24/2025 11/24/2020, 12/08/2016 Insurance [facility] [employer] PPO [place] [id number] Care Teams Plumber Assistant Relationship Specialty Start Date End Date Salo Nye MD 1210 [facility] [address] [facility] [address] [place] [address] PCP - General Family Medicine 08/02/23
--- OUTSIDE RECORDS SUMMARY | 2025-03-12 08:45 | XMS_ITS | Encounter Summary ---
Author Organization [facility] Address [address] [place] [address] Care Team Providers Care Banana Carrier Name Role Phone Salo Nye MD Primary Care Provider [phone] Reason for Visit * Reason Onset Date Comments Med Refill 02/04/2025 Encounter Details Date Type Department Care Team (Late st Contact Info) Description 02/04/2025 Refill [facility] [address] [address] Mago Love APRN [address] [id number] Rheumatoid arthritis involving multiple sites with positive [...] encounter Miscellaneous Notes * Telephone Encounter - Marcy May MA - 02/07/2025 2:01 PM EDT Refill request for Leflunomide denied as it was sent on 11/12/24 for qty 30 with 4 refills. I will send pt a message via Commun[employer]it letting her know to contact pharmacy for a refill. -MICHELLE Watson * Telephone Encounter - Mary Patricia RegSched Rep - 02/04/2025 11:37 AM EDT Caller: Ninfa España Relationship: Self Best call back number: [phone] Requested Prescriptions: Requested Prescriptions Pending Prescriptions Disp Refills leflunomide (ARAVA) 20 MG tablet 30 tablet 4 Sig: Take 1 tablet by mouth Daily. Pharmacy where request should be sent: [facility] Last office visit with prescribing clinician: 11/12/2024 Last telemedicine visit with prescribing clinician: Visit date not found Next office visit with prescribing clinician: Visit date not found Additional details provided by patient: Does the patient have less than a 3 day supply: [x] Yes [] No Would you like a call back once the refill request has been completed: [] Yes [x] No If the office needs to give you a call back, can they leave a voicemail: [] Yes [x] No Sil Magallanes Rep 02/04/25 11:37 EDT documented in this encounter Plan of Treatment Upcoming Encounters Date Type Department Care Team (Late st Contact Info) Description 04/23/2025 8:45 AM EDT Office Visit [facility] [address] [phone] Jesus Vasquez DO [address] [address] documented as of this encounter Visit Diagnoses Diagnosis Rheumatoid arthritis involving multiple sites with positive rheumatoid factor Encounter for long-term (current) use of high-risk medication Encounter for long-term (current) use of other medications documented in this encounter Care Teams Banana Carrier Relationship Specialty Start Date End Date Salo Nye MD [address] [address] [address] [place] [address] PCP - General Family Medicine 08/02/23 documented as of this encounter
--- OUTSIDE RECORDS SUMMARY | 2025-03-12 08:45 | XMS_ITS | Clinical Summary ---
Author Organization [facility] Address [address] [place] [address] Care Team Providers Care Dicer Operator Name Role Phone Salo Nye MD Primary Care Provider [phone] Allergies Active Allergy Reactions Criticality Noted Date [...] Description 01/09/2025 8:30 AM EDT Ancillary Procedure [facility] [address] [place] [address] 01/09/2025 8:15 AM EDT Office Visit [facility] [address] [place] [address] Vladislav Todd MD Corneal deposit of both [...] Test (TB Skin Test) 02/05/2014, 01/22/2013,01/25/2012,06/24,07/13/2010,07/31/2009,08/20/2008 ,07/10/2007,07/31/2006,07/17/2006 [employer] COVID-19 Vac cine (Purple Cap) 12+ 08/25/2020,08/03/2020 [...] Description 07/15/2025 2:30 PM EST Office Visit [facility] [address] [place] [address] Vladislav Todd MD [address] [place] [address] Health Maintenance Due Date Last [...] PPSV23, PCV20 or PCV21) 12/08/2021 11/24/2020, 12/08/2016 [id number] Vaccine (8 - Mixed Product risk season) [...] Last 3 Months Insurance MEDICARE Care Teams Dicer Operator Relationship Specialty Start Date End Date Salo Nye MD [address] [place] [address] [facility] - General 12/25/20
== END 2025-03-12 23:59 | disposition home or self-care (01) ==
LOC: RAD 08:42
PROVIDERS: PCP Family Medicine; Visit Provider Family Medicine
DX: M85.852 Other specified disorders of bone density and structure, left thigh (principal); M85.851 Other specified disorders of bone density and structure, right thigh; Z13.820 Encounter for screening for osteoporosis
CPT/HCPCS: 77080

== ENCOUNTER 2025-07-11 08:22 | Outpatient (CLI) | payer MEDICARE, SELFPAY ==
--- OUTSIDE RECORDS SUMMARY | 2024-05-06 05:45 | XMS_ITS ---
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 Name Role Phone Kobe Nye Primary Care Provider Rea Vaughn Unavailable [phone] Allergies Allergen (clinical drug ingredient) Drug/Non Drug Allergy documented on EMR Reaction Allergy Type Onset Date Status fentanyl fentaNYL Unknown Drug Allergy Active tolmetin Tolmetin hives Drug Allergy Active Results Component Value Reference Range Notes CBC Fingerstick (in house) Reviewed date:05/06/2024 12:50:49 PM Interpretation: Performing Lab: Notes/Report: wbc 6.0 3.5 - 10 lym 25.6 15 - 50 mid 7.5 2 - 15 gran 66.9 35 - 80 rbc 4.46 3.5 - 5.5 hgb 12.9 11.5 - 16.5 hct 39.1 35 - 55 mcv 87.6 75 - 100 mch 28.9 25 - 35 mchc 32.9 31 - 38 plat 168 100 - 400 Diarrhea Panel ([facility]) Reviewed date:05/08/2024 02:05:08 PM Interpretation: Performing Lab: Notes/Report: CT scan : abdomen and pelvis w/ and w/o contrast (urography) Reviewed date:05/22/2024 02:16:09 PM Interpretation:hepatic and renal cysts Performing Lab: Notes/Report: hepatic and renal cysts REASON FOR VISIT diverticulitis not improved Medications Medication SIG (Take, Route, Frequency, Duration) Notes Start Date End Date Status Leflunomide 20 MG 1 tablet Orally Once a day; Duration: 30 day(s) Active Potassium Chloride ER 10 mEq TAKE ONE CA PSULE BY MOUTH TWICE DAILY; Duration: 90 Active Align 4 MG 1 cap(s) orally once a day Active ONE A DAY FOR WOMEN 1 TAB(S) DIRECTED Active metroNIDAZOLE 500 MG 1 tablet Orally Thr ee times a day; Duration: 7 days 05/01/2024 Active Pramipexole Dihydrochloride 0.125 MG 1 tablet Orally At Bed Time 01/01/2024 Active levoFLOXacin 500 MG 1 tablet Orally Once a day; Duration: 7 days 05/06/2024 Active Triamterene-HCTZ 37.5-25 MG 1 orally once a day Active Raloxifene HCl 60 mg TAKE ONE TABLET BY MOUTH EVERY DAY; Duration: 30 Active Vital Signs Blood pressure systolic 130 mm Hg 05/06/20 24 Blood pressure diastolic 70 mm Hg 024 Heart Rate 86 /min 05/06/2024 Height 62 in 05/06/2024 Weight 136.4 lbs 05/06/2024 BMI 24.95 kg/m2 05/06/2024 Encounters Encounter Location Date Provider Diagnosis [facility] [address] [facility] [address] [facility] [address] [place], [place] [id number] 05/06/2024 Rea Vaughn Diarrhea R19.7 and Abdominal pain R10.9 Assessments Encounter Date Diagnosis (ICD Code) Assessment Notes Treatment Notes Treatment Clinical Notes Section Notes 05/06/2024 Diarrhea (ICD-10 - R19.7) 05/06/2024 Abdominal pain (ICD-10 - R10.9) will progress diet as tolerated; will also schedule CT scan ; maintain hydration; will add Levaquin and continue with Flagyl Plan Of Treatment Medication Medication Name Sig Start Date Stop Date Notes metroNIDAZOLE 500 MG 1 tablet Orally Thr ee times a day; Duration: 7 days 05/01/2024 levoFLOXacin 500 MG 1 tablet Orally Once a day; Duration: 7 days 05/06/2024 Treatment Notes Assessment Notes Abdominal pain will progress diet a s tolerated; will also schedule CT scan ; maintain hydration; will add Levaquin and continue with Flagyl Next Appt Details Follow Up: will notify of te st results, Reason: Provider Name:Kobe Clifford er, 08/04/2025 09:30:00 AM, [address] [facility], [address], [place], [place], [id number], Progress Notes * DEREK DEDOB:[birth year] (70 yo F)Acc No.[id number]:05/06/2024 Progress Notes Patient: DEREK GUERRERO Provider: FRANCISCO Hayes :1955 A ge:69 Y S ex:Female Date:05/06/2024 Address:[address] [place] [address] [address] [facility] Pcp:Kobe Nye Subjective: * Chief Complaints: * 1 . Diverticulitis not improved. * HPI: G astroenterology: 69 year old female presents with c/o Abdominal Pain L LQ.? c/o Diarrhea s everal times a day; x3 this AM. c/o gas. Denies : Nausea. D enies : Vomiting. D enies : Fever.?Denies : Blood in Stool. D enies : Constipation. Pt is here today for diverticulitis not improving. Pt sts she is having pain on her left side; she has moved herself back to clear liquids. * ROS: D ERMATOLOGY: no R apurva. n o H jonny. G ASTROENTEROLOGY: no N ausea. n o V omiting. n o D iarrhea.? U ROLOGY: no D ifficulty urinating. n o B lood in urine. * Medical History: D iverticulosis, herpes simplex I, Urethral syndrome/chronic cystitis, left anterior fascicular block on EKG, Flu shot 2018 at work, COVID 19 Vaccine Pfizer, 08/03/20, 08/25/2020, Ctjdtvyd-mn-sqjv left forearm . * Surgical History: t ubal ligation 06/1988, lap/cholecystectomy 1997, ganglion cyst removal 1998, urologic surgery 1993, hysterectomy vaginal , colonoscopy, Dr. Biswas 12/31/03, skin biopsy from Left arm, Dr. Moss 09/01/2015, Lesion Removal From Tongue -Dr. Banks 11/23/2017, Lbotxfzu-wd-salx left forearm 2014 , colonoscopy, Dr. Hart 2009. * Hospitalization/Major Diagno stic Procedure: H [facility]-diverticulosis 11/04 to 11/06/08. * Family History: F ather: alive, cancer-colon, heart disease. M other: alive. 1 sister(s) - healthy. 2 son(s) , 1 daughter(s) - healthy. . * Social History: C URRENT TOBACCO USE S moking Status: Patient does NOT smoke. C affeine: yes, frequency:. Marital Status: . Past smoking status: no. Alcohol: socially. * Medications: T aking Pramipexole Dihydrochloride 0.125 MG Tablet 1 tablet Orally At Bed Time , Taking Leflunomide 20 MG Tablet 1 tablet Orally Once a day , Taking ONE A DAY FOR WOMEN 1 TAB(S) DIRECTED , Taking Align 4 MG Capsule 1 cap(s) orally once a day , Taking Potassium Chloride ER 10 mEq Capsule Extended Release TAKE ONE CAPSULE BY MOUTH TWICE DAILY , Taking Raloxifene HCl 60 mg Tablet TAKE ONE TABLET BY MOUTH EVERY DAY , Taking Triamterene-HCTZ 37.5-25 MG Tablet 1 orally once a day , Taking metroNIDAZOLE 500 MG Tablet 1 tablet Orally Three times a day , Medication List reviewed and reconciled with the patient * Allergies: f entaNYL, Tolmetin: hives. Objective: * Vitals: W t:136.4, Temp:98.4, BP:130/70, HR:86, Nurse:LILLIE, Ht: 62, BMI:24.95. * Examination: G eneral Examination: General Appearance: NAD, appears healthy, alert, pleasant. H eart: RRR. L ungs: CTAB A&P. A bdomen: bowel sounds present, soft; TTP in left lower quadrant, no guarding or rigidity, no masses palpated. N eurologic Exam: alert and oriented. E xtremities: no leg edema. Assessment: * Assessment: 1. D iarrhea - R19.7 (Primary) 2 . A bdominal pain - R10.9 Plan: * Treatment: 2.?Abdominal pain? Refill metroNIDAZOLE Tablet, 500 MG, 1 tablet, Orally, Three times a day, 7 days, 21 Tablet, Refills 0;?Start levoFLOXacin Tablet, 500 MG, 1 tablet, Orally, Once a day, 7 days, 7 Tablet.?LAB: CBC Fingerstick (in house) (Collection Date & Time - 05/06/2024)* Value Reference Range w bc 6.0 3.5 - 10 * l ym 25.6 15 - 50 * m id 7.5 2 - 15 * g ran 66.9 35 - 80 * r bc 4.46 3.5 - 5.5 * h gb 12.9 11.5 - 16.5 * h ct 39.1 35 - 55 * m cv 87.6 75 - 100 * m ch 28.9 25 - 35 * m chc 32.9 31 - 38 * p lat 168 100 - 400 * Rosalina Mckeon 05/06/2024 11:46 :48 AM > , Provider reviewed results while patient in office. ?Imaging: CT scan : abdomen and pelvis w/ and w/o contrast (urography) (Performed Date - 05/21/2024)?hepatic and renal cysts* Rea Vaughn 05/06/2024 11:21:17 AM > HO diverticulosis with previous diverticulitis; contnues abdominal pain with TXTaKenisha barrera 05/06/2024 11:40:43 AM > no auth needed; CPT code 56834; faxed to [facility] 05/22/2024 2:15:43 PM > I spoke with pt and discussed results Notes: will progress diet as tolerated; will also schedule CT scan ; maintain hydration; will add Levaquin and continue with Flagyl?? * Procedure Codes: 3 6416 CAPILLARY BLOOD DRAW, 80236 CBC WITH AUTO DIFF * Follow Up: w ill notify of test results * Images: Billing Information: * Visit Code: 23643 Office Visit, Est Pt., Level 3. * Procedure Codes: 55912 CAPILLARY BLOOD DRAW. 34212 CBC WITH AUTO DIFF. * Electronic signature of Charlene Vaughn APRN on 07/11/2025 at 08:23 AM EST Sign off status: Pending * Provider: FRANCISCO Hayes Date: 0 05/06/2024 Generated for Chon cedeño/Monae/eTransmitting on: 1 09/10/2024 08:23 AM EST History and Physical Notes * HPI (History of Present Illness) Category Sub-Category Detail Notes Category Not es Gastroenterology Fever Pt is here today for diverticulitis not improving. Pt sts she is having pain on her left side; she has moved herself back to clear liquids Vomiting Abdominal Pain LLQ Diarrhea several times a day; x3 this AM Blood in Stool Nausea Constipation gas Examination Category Sub-Category Detail Notes Category Not es General Examination Heart: RRR Lungs: CTAB A&P Abdomen: bowel sounds present , soft; TTP in left lower quadrant, no guarding or rigidity, no masses palpated Extremities: no leg edema General Appearance: NAD, appears healthy , alert, pleasant Neurologic Exam: alert and oriented
--- OUTSIDE RECORDS SUMMARY | 2024-07-08 06:30 | XMS_ITS ---
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 , [place] [address] Test performed by [employer], [facility] Sodium 139 135-145 mmol/L Potassium 3.8 3.5-5.3 mmol/L Chloride 102 97-108 mmol/L CO2 26 22-32 mmol/L Glucose 81 65-99 mg/dL BUN 30 8-23 mg/dL Creatinine 0.96 0.50-1.00 mg/dL Calcium 9.4 8.6-10.4 mg/dL eGFR by Creatinine 64 >59 mL/min/1.73m2 Protein 6.6 6.0-8.3 g/dL Albumin 4.4 3.5-5.3 g/dL Alkaline Phosphatase 59 35-121 IU/L ALT (SGPT) 24 <5-47 IU/L AST (SGOT) 22 <5-40 IU/L Bilirubin, Total 0.4 <0.2-1.2 mg/dL A/G Ratio 2.0 1.1-2.5 P-Lipid Panel Reviewed date:07/09/2024 03:52:39 PM Interpretation:chol 258, trigs 187, chol/hdl 4.45, non-hdl 200, ldl 163 Performing Lab: Notes/Report: Test performed by [employer], [address] , [address], [place] [address] Calin Simmons MD, Senior Nurse Manager CLIA: [id number] Cholesterol 258 <200 mg/dL Triglycerides 187 <150 mg/dL HDL Cholesterol 58 >39 mg/dL Cholesterol / HDL Ratio 4.45 0.00-4.44 Ratio Non-HDL Cholesterol 200 <130 mg/dL LDL Cholesterol (Calculation) 163 <130 mg/dL LDL Cholesterol Levels* Less than 100 mg/dL Optimal 100 to 129 mg/dL Near Optimal/ Above Optimal 130 to 159 mg/dL Borderline High 160 to 189 mg/dL High 190 mg/dL and above Very High * Categories as recommended by the 2004 ATPIII guidelines LDL/HDL Ratio 2.8 <3.3 Ratio LDL Cholesterol Patient History Test Date: 08/24/2023 LDL Results: 115 Units: mg/dL % Change: - Test Date: 07/08/2024 LDL Results: 163 Units: mg/dL % Change: +41% REASON FOR VISIT 3 month check, Needs labs & flu vaccine Medications Medication SIG (Take, Route, Frequency, Duration) Notes Start Date End Date Status Triamterene-HCTZ 37.5-25 MG 1 orally once a day Active Raloxifene HCl 60 mg TAKE ONE TABLET BY MOUTH EVERY DAY; Duration: 30 Active Potassium Chloride ER 10 mEq TAKE ONE CA PSULE BY MOUTH TWICE DAILY; Duration: 90 Active traZODone HCl 50 MG 1 tablet at bedtime as needed Orally Once a day 07/08/2024 Active Pramipexole Dihydrochloride 0.125 MG 1 tablet Orally At Bed Time 01/01/2024 Active Align 4 MG 1 cap(s) orally once a day Active ONE A DAY FOR WOMEN 1 TAB(S) DIRECTED Active Leflunomide 20 MG 1 tablet Orally Once a day; Duration: 30 day(s) Active Vital Signs Blood pressure systolic 130 mm Hg 07/08/20 24 Blood pressure diastolic 80 mm Hg 024 Heart Rate 73 /min 07/08/2024 Height 62 in 07/08/2024 Weight 135.0 lbs 07/08/2024 BMI 24.69 kg/m2 07/08/2024 Encounters Encounter Location Date Provider Diagnosis [facility] [facility] [address] [place], [place] [id number] 07/08/2024 Kobe Nye Essential hypertensi on I10 ; Restless legs syndrome G25.81 ; Rheumatoid arthritis involving multiple sites with positive rheumatoid factor M05.79 ; Primary insomnia F51.01 and Hyperlipidemia, unspecified hyperlipidemia type E78.5 Assessments Encounter Date Diagnosis (ICD Code) Assessment Notes Treatment Notes Treatment Clinical Notes Section Notes 07/08/2024 Essential hypertension (ICD-10 - I10) 07/08/2024 Restless legs syndrome (ICD-10 - G25.81) 07/08/2024 Rheumatoid arthritis involving multiple sites with positive rheumatoid factor (ICD-10 - M05.79) 07/08/2024 Primary insomnia (ICD-10 - F51.01) 07/08/2024 Hyperlipidemia, unspecified hyperlipidemia type (ICD-10 - E78.5) Plan Of Treatment Medication Medication Name Sig Start Date Stop Date Notes traZODone HCl 50 MG 1 tablet at bedtime as needed Orally Once a day 07/08/2024 Next Appt Details Follow Up: 3 Months, Reason: Provider Name:Kobe Clifford er, 08/04/2025 09:30:00 AM, [address] [facility] [address], [address], [place], [place], [phone], Progress Notes * DEREK DEDOB:[birth year] (70 yo F)Acc No.[id number]:07/08/2024 Progress Notes Patient: DEREK GUERRERO Provider: Kobe Nye M.D. :1955 A ge:69 Y S ex:Female Date:07/08/2024 Address:[address] [place] [address] [address] , [id number] Subjective: * Chief Complaints: * 1 . 3 month check. 2. Needs labs & flu vaccine. * HPI: C ardiology: The patient is here today for a check up on Hypertension and Hyperlipidemia. Pt states she is doing good except for some restless leg and trouble falling asleep at night. Pt states she has tried Tylenol PM and it helps sometimes and other times it doesn't. Pt states she has also tried Melatonin without any affect Pt states she is fasting. Denies : Chest Pain. D enies : Short of Breath. D enies : Dizziness. D enies : Palpitations. * ROS: D ERMATOLOGY: no R apurva. [...] work, COVID 19 Vaccine Pfizer, 08/03/20, 08/25/2020, Wlvxxggx-hb-zymm left forearm . * Surgical History: t ubal ligation 06/1988, lap/cholecystectomy 1997, ganglion cyst removal 1998, urologic surgery 1993, hysterectomy vaginal , colonoscopy, Dr. Biswas 12/31/03, skin biopsy from Left arm, Dr. Moss 09/01/2015, Lesion Removal From Tongue -Dr. Banks 11/23/2017, Znwrcflj-vb-ycyd left forearm 2014 , colonoscopy, Dr. Hart [...] CAPSULE BY MOUTH TWICE DAILY , Taking Triamterene-HCTZ 37.5-25 MG Tablet 1 orally once a day , Taking Raloxifene HCl 60 mg Tablet TAKE ONE TABLET BY MOUTH EVERY DAY , Discontinued metroNIDAZOLE 500 MG Tablet 1 tablet Orally Three times a day , Discontinued levoFLOXacin 500 MG Tablet 1 tablet Orally Once a day , Medication List reviewed and reconciled with the patient * Allergies: f entaNYL, Tolmetin: hives. Objective: * Vitals: W t:135.0, Temp:97.9, BP:130/80, HR:73, Nurse:RISHABH, Ht: 62, BMI:24.69. * Examination: G eneral Examination: General Appearance: N AD. H EENT: T M's normal, no FB, small amount of cerumen. O ral cavity: n o lesions, mucosa moist and WNL, no erythema.?Neck: s upple, no lymphadenopathy. C hest: n ormal shape and expansion. H eart: RSR. L ungs: c lear to auscultation. A bdomen: soft and nontender. N eurologic Exam: I ntact, gait normal. S kin: n ormal, no rash. P eripheral pulses: n ormal . B ack: normal, mild dorsal kyphosis. E xtremities: n o leg edema. ? Assessment: * Assessment: 1. E ssential hypertension - I10 (Primary) 2 . R estless legs syndrome - G25.81 3 . R heumatoid arthritis involving multiple sites with positive rheumatoid factor - M05.79 4 . P rimary insomnia - F51.01 5 . H yperlipidemia, unspecified hyperlipidemia type - E78.5 Plan: * Treatment: Value Reference Range A /G Ratio 2.0 1.1-2.5 - * A lbumin 4.4 3.5-5.3 - g/dL * A lkaline Phosphatase 59 35-121 - IU/L * A LT (SGPT) 24 <5-47 - IU/L * A ST (SGOT) 22 <5-40 - IU/L * B ilirubin, Total 0.4 <0.2-1.2 - mg/dL * B UN 30 H 8-23 - mg/dL * C alcium 9.4 8.6-10.4 - mg/dL * C hloride 102 97-108 - mmol/L * C O2 26 22-32 - mmol/L * C reatinine 0.96 0.50-1.00 - mg/dL * G lucose 81 65-99 - mg/dL * P otassium 3.8 3.5-5.3 - mmol/L * S odium 139 135-145 - mmol/L * P rotein 6.6 6.0-8.3 - g/dL * e GFR by Creatinine 64 >59 - mL/min/1.73m2 * SidDidi 07/09/2024 3:52 :32 PM >See phone encounter 2.?Primary insomnia? Start traZODone HCl Tablet, 50 MG, 1 tablet at bedtime as needed, Orally, Once a day, 30, Refills 4.??3.?Hyperlipidemia, unspecified hyperlipidemia type?LAB: P-Lipid Panel (Collection Date & Time - 07/08/2024 12:01 PM)?chol 258, trigs 187, chol/hdl 4.45, non-hdl 200, ldl 163* Value Reference Range C holesterol / HDL Ratio 4.45 H 0.00-4.44 - Ratio * C holesterol 258 H <200 - mg/dL * H DL Cholesterol 58 >39 - mg/dL * L DL Cholesterol (Calculation) 163 H <130 - mg/d L * L DL/HDL Ratio 2.8 <3.3 - Ratio * N on-HDL Cholesterol 200 H <130 - mg/dL * T riglycerides 187 H <150 - mg/dL * Didi Lau 07/09/2024 3:52 :32 PM >See phone encounter * Procedure Codes: G 2211 Complex e/m visit add on * Follow Up: 3 Months * Images: Billing Information: * Visit Code: 77865 Office Visit, Est Pt., Level 4. * Procedure Codes: G2211 Complex e/m visit add on. * Electronic signature of Kobe Nye MD on 07/11/2025 at 08:24 AM EST Sign off status: Pending * Provider: Kobe Nye M.D. Date: 09/07/2023 Generated for Chon cedeño/Monae/eTransmitting on: 09/10/2024 08:24 AM EST History and Physical Notes * HPI (History of Present Illness) Category Sub-Category Detail Notes Category Not es Cardiology Short of Breath Chest Pain Palpitations Dizziness Examination Category Sub-Category Detail Notes Category Not es General Examination HEENT: TM's normal, no FB, small amount of cerumen Heart: RSR Lungs: clear to auscultatio n Abdomen: soft and nontender Extremities: no leg edema General Appearance: NAD Skin: normal, no rash Neurologic Exam: Intact, gait normal Neck: supple, no lymphaden opathy Oral cavity: no lesions, mucosa m oist and WNL, no erythema Peripheral pulses: normal Back: normal, mild dorsal kyphosis Chest: normal shape and exp ansion
--- OUTSIDE RECORDS SUMMARY | 2024-10-07 09:15 | XMS_ITS ---
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 Name Role Phone Kobe Nye Primary Care Provider Allergies Allergen (clinical drug ingredient) Drug/Non Drug Allergy documented on EMR Reaction Allergy Type Onset Date Status fentanyl fentaNYL Unknown Drug Allergy Active tolmetin Tolmetin hives Drug Allergy Active Results Component Value Reference Range Notes EKG Reviewed date:10/11/2024 09:21:57 AM Interpretation:Abnormal Performing Lab: Notes/Report: Abnormal EKG Reviewed date:10/11/2024 09:21:57 AM Interpretation:Abnormal Performing Lab: Notes/Report: Abnormal REASON FOR VISIT 3 month check, Needs labs & bone density screening Medications Medication SIG (Take, Route, Frequency, Duration) Notes Start Date End Date Status DULoxetine HCl 30 MG 1 capsule Orally On day 10/07/2024 Active Pramipexole Dihydrochloride 0.125 MG 2 Orally At Bed Time 01/01/2024 Active Donepezil HCl 5 MG 1 tablet at bedtime Orally Once a day 10/07/2024 Active Triamterene-HCTZ 37.5-25 MG TAKE ONE TAB LET BY MOUTH EVERY DAY; Duration: 90 Active Potassium Chloride ER 10 mEq TAKE ONE CA PSULE BY MOUTH TWICE DAILY; Duration: 90 Active Align 4 MG 1 cap(s) orally once a day Active ONE A DAY FOR WOMEN 1 TAB(S) DIRECTED Active Rosuvastatin Calcium 20 MG 1 tablet Oral ly At Bed Time; Duration: 30 day(s) 08/01/2024 Active traZODone HCl 50 MG 1 tablet at bedtime as needed Orally Once a day 07/08/2024 Active Raloxifene HCl 60 mg TAKE ONE TABLET BY MOUTH EVERY DAY; Duration: 30 Active Leflunomide 20 MG 1 tablet Orally Once a day; Duration: 30 day(s) Active Problems Problem Type SNOMED Code ICD Code Onset Dates Problem Status W/U Status Risk Notes Problem Memory loss (89628199) Memory loss (R41.3) Active confirmed Vital Signs Blood pressure systolic 134 mm Hg 10/07/19 25 Blood pressure diastolic 70 mm Hg 025 Heart Rate 90irregular /min 10/07/2024 Height 62 in 10/07/2024 Weight 140.4 lbs 10/07/2024 BMI 25.68 kg/m2 10/07/2024 Encounters Encounter Location Date Provider Diagnosis [place] [address] [facility] [address] [place] [id number] 10/07/2024 Kobe Nye Essential hypertensi on I10 ; Restless legs syndrome G25.81 ; Acute midline low back pain without sciatica M54.50 ; Memory loss R41.3 and Heart palpitations R00.2 Assessments Encounter Date Diagnosis (ICD Code) Assessment Notes Treatment Notes Treatment Clinical Notes Section Notes 10/07/2024 Essential hypertension (ICD-10 - I10) 10/07/2024 Restless legs syndrome (ICD-10 - G25.81) 10/07/2024 Acute midline low back pain without sciatica (ICD-10 - M54.50) 10/07/2024 Memory loss (ICD-10 - R41.3) 10/07/2024 Heart palpitations (ICD-10 - R00.2) Plan Of Treatment Medication Medication Name Sig Start Date Stop Date Notes DULoxetine HCl 30 MG 1 capsule Orally On a day 10/07/2024 Pramipexole Dihydrochloride 0.125 MG 2 Orally At Bed Time 01/01/2024 Donepezil HCl 5 MG 1 tablet at bedtime Orally Once a day 10/07/2024 Next Appt Details Follow Up: 4 Weeks, Reason: Provider Name:Kobe Clifford er, 08/04/2025 09:30:00 AM, [address], [address], [place], [phone], Procedure Notes * Category Sub-Category Detail Notes Procedure-other Mini Mental Status Exam Progress Notes * DEREK DEDOB:[birth year] (70 yo F)Acc No.[id number]:10/07/2024 Progress Notes Patient: DEREK GUERRERO Provider: Kobe Nye M.D. :1955 A ge:69 Y S ex:Female Date:10/07/2024 Address:[address] [place] [address] [address], [id number] Subjective: * Chief Complaints: * 1 . 3 month check. 2. Needs labs & bone density screening. * HPI: C ardiology: The patient is here for a 3 month check up on Hypertension and Insomnia. Pt states she is having some lower right sided back pain. Pt states about a week ago after vacuuming she had some pain in her lower back. Pt also c/o some short term memory loss. Pt states she is still not sleeping well and thinks it could be due to the restless leg. Denies : Chest Pain. D enies : [...] work, COVID 19 Vaccine Pfizer, 08/03/20, 08/25/2020, Zwkchodt-tp-gokr left forearm . * Surgical History: t ubal ligation 06/1988, lap/cholecystectomy 1997, ganglion cyst removal 1998, urologic surgery 1993, hysterectomy vaginal , colonoscopy, Dr. Biswas 12/31/03, skin biopsy from Left arm, Dr. Moss 09/01/2015, Lesion Removal From Tongue -Dr. Banks 11/23/2017, Jzqxlege-sv-ityb left forearm 2014 , colonoscopy, Dr. Hart 2009. * Hospitalization/Major Diagno stic Procedure: H MH-diverticulosis 11/04 to 11/06/08. * Family History: F ather: , cancer-colon, heart disease. M other: . 1 sister(s) - healthy. 2 son(s) , 1 daughter(s) - healthy. . * Social History: C URRENT TOBACCO USE S moking Status: Patient does NOT smoke. C affeine: yes, frequency:. Marital Status: . Past smoking status: no. Alcohol: socially. * Medications: T aking Leflunomide 20 MG Tablet 1 tablet Orally Once a day , Taking ONE A DAY FOR WOMEN 1 TAB(S) DIRECTED , Taking Align 4 MG Capsule 1 cap(s) orally once a day , Taking traZODone HCl 50 MG Tablet 1 tablet at bedtime as needed Orally Once a day , Taking Raloxifene HCl 60 mg Tablet TAKE ONE TABLET BY MOUTH EVERY DAY , Taking Rosuvastatin Calcium 20 MG Tablet 1 tablet Orally At Bed Time , Taking Pramipexole Dihydrochloride 0.125 MG Tablet 1 tablet Orally At Bed Time , Taking Triamterene-HCTZ 37.5-25 MG Tablet TAKE ONE TABLET BY MOUTH EVERY DAY , Taking Potassium Chloride ER 10 mEq Capsule Extended Release TAKE ONE CAPSULE BY MOUTH TWICE DAILY , Medication List reviewed and reconciled with the patient * Allergies: f entaNYL, Tolmetin: hives. Objective: * Vitals: W t:140.4, Temp:98.0, BP:134/70, HR:90irregular, Nurse:RISHABH, Ht: 62, BMI:25.68. * Examination: G eneral Examination: General Appearance: [...] estless legs syndrome - G25.81 3 . A cute midline low back pain without sciatica - M54.50 4 . M mirza loss - R41.3 5 . H eart palpitations - R00.2 Plan: * Treatment: 2. M mirza loss Start Donepezil HCl Tablet, 5 MG, 1 tablet at bedtime, Orally, Once a day, 30, Refills 3; S tart DULoxetine HCl Capsule Delayed Release Particles, 30 MG, 1 capsule, Orally, Once a day, 30, Refills 3. 3. H eart palpitations I maging: EKG (Performed Date - 10/07/2024) A bnormal * Procedures: P rocedure-other: Mini Mental Status Exam 3 . * Procedure Codes: G 2211 Complex e/m visit add on, 3075F SYST BP GE 130 - 139MM HG, 3078F DIAST BP < 80 MM HG * Follow Up: 4 Weeks * Images: Billing Information: * Visit Code: 55922 Office Visit, Est Pt., Level 4. * Procedure Codes: G2211 Complex e/m visit add on. 3075F SYST BP GE 130 - 139MM HG. 3078F DIAST BP < 80 MM HG. * Electronic signature of Kobe Nye MD on 07/11/2025 at 08:25 AM EST Sign off status: Pending * Provider: Kobe Nye M.D. Date: 0 10/07/2024 Generated for Chon cedeño/Monae/eTransmitting on: 09/10/2024 08:25 AM EST History and Physical Notes * [...]
--- OUTSIDE RECORDS SUMMARY | 2024-11-04 10:15 | XMS_ITS ---
[facility] [address] [facility] [address] [id number] Care Team Providers Care Latcher Name Role Phone Kobe Nye Primary Care Provider Allergies Allergen (clinical drug ingredient) Drug/Non Drug Allergy documented on EMR Reaction Allergy Type Onset Date Status fentanyl fentaNYL Unknown Drug Allergy Active tolmetin Tolmetin hives Drug Allergy Active REASON FOR VISIT 1 month check Medications Medication SIG (Take, Route, Frequency, Duration) Notes Start Date End Date Status Pramipexole Dihydrochloride 0.125 MG 2 Orally At Bed Time 01/01/2024 Active Raloxifene HCl 60 mg TAKE ONE TABLET BY MOUTH EVERY DAY; Duration: 30 Active DULoxetine HCl 30 MG 1 capsule Orally On ce a day 10/07/2024 Active Potassium Chloride ER 10 mEq TAKE ONE CA PSULE BY MOUTH TWICE DAILY; Duration: 90 Active Donepezil HCl 5 MG 1 tablet at bedtime Orally Once a day 10/07/2024 Active ONE A DAY FOR WOMEN 1 TAB(S) DIRECTED Active Rosuvastatin Calcium 20 MG 1 tablet Oral ly At Bed Time; Duration: 30 day(s) 08/01/2024 Active Triamterene-HCTZ 37.5-25 MG TAKE ONE TAB LET BY MOUTH EVERY DAY; Duration: 90 Active Align 4 MG 1 cap(s) orally once a day Active traZODone HCl 50 MG 1 tablet at bedtime as needed Orally Once a day 07/08/2024 Active Leflunomide 20 MG 1 tablet Orally Once a day; Duration: 30 day(s) Active Problems Problem Type SNOMED Code ICD Code Onset Dates Problem Status W/U Status Risk Notes Problem Multiple premature ventricular complexes (disorder) (040334208) PVC's (premature ventricular contractions) (I49.3) Active confirmed Vital Signs Blood pressure systolic 130 mm Hg 11/05/19 25 Blood pressure diastolic 80 mm Hg 025 Heart Rate 71 /min 11/04/2024 Height 62 in 11/04/2024 Weight 135.0 lbs 11/04/2024 BMI 24.69 kg/m2 11/04/2024 Encounters Encounter Location Date Provider Diagnosis [facility] [address] [place] [id number] 11/04/2024 Kobe Nye PVC's (premature ventricular contractions) I49.3 ; Visual changes H53.9 ; Rheumatoid arthritis involving multiple sites with positive rheumatoid factor M05.79 ; Essential (primary) hypertension I10 ; Memory loss R41.3 and Near syncope R55 Assessments Encounter Date Diagnosis (ICD Code) Assessment Notes Treatment Notes Treatment Clinical Notes Section Notes 11/04/2024 PVC's (premature ventricular contractions) (ICD-10 - I49.3) ADMIT TO [facility] OBS FOR DYSRRHYTHMIA, NEAR SYNCOPE, CHEST PAIN 11/04/2024 Visual changes (ICD-10 - H53.9) Sees Dr. Vladislav Todd. I would like her to have appointment with him soon due to the visual changes. 11/04/2024 Rheumatoid arthritis involving multiple sites with positive rheumatoid factor (ICD-10 - M05.79) 11/04/2024 Essential (primary) hypertension (ICD-10 - I10) 11/04/2024 Memory loss (ICD-10 - R41.3) 11/04/2024 Near syncope (ICD-10 - R55) Plan Of Treatment Treatment Notes Assessment Notes PVC's (premature ventricular contraction s) ADMIT TO [facility] OBS FOR DYSRRHYTHMIA, NEAR SYNCOPE, CHEST PAIN Visual changes Sees Dr. Vladislav prabhakar. I would like her to have appointment with him soon due to the visual changes. Next Appt Details Follow Up: 1 Week, Reason: Provider Name:Kobe Clifford er, 08/04/2025 09:30:00 AM, [address], [address], [place], [id number], Progress Notes * DEREK DEDOB:[birth year] (70 yo F)Acc No.[id number]:11/04/2024 Progress Notes Patient: DEREK GUERRERO Provider: Kobe Nye M.D. :1955 A ge:69 Y S ex:Female Date:11/04/2024 Address:[address] [place] [address] [address], [id number] Subjective: * Chief Complaints: * 1 . 1 month check. * HPI: N eurology: The pt is here for a follow up on Insomnia. Pt states she is still not sleeping very well. Pt states she is taking the Duloxetine and Donepazil as directed. Pt states she is having trouble going and having crazy dreams when she goes to sleep. Pt states she is taking Augmentin 3 times a day for dental work. Pt states she has some vision changes for about 2 weeks. Pt states it feels like she has white circles in her vision off and on. 69 year old female presents with c/o insomnia. * ROS: D ERMATOLOGY: no R apurva. [...] work, COVID 19 Vaccine Pfizer, 08/03/20, 08/25/2020, Gvbccsza-yh-gusc left forearm . * Surgical History: t ubal ligation 06/1988, lap/cholecystectomy 1997, ganglion cyst removal 1998, urologic surgery 1993, hysterectomy vaginal , colonoscopy, Dr. Biswas 12/31/03, skin biopsy from Left arm, Dr. Moss 09/01/2015, Lesion Removal From Tongue -Dr. Banks 11/23/2017, Qhfttllk-ue-iksb left forearm 2014, colonoscopy, Dr. Hart 2009. * Hospitalization/Major Diagno stic Procedure: H MH-diverticulosis 3/24 to 11/06/08. * Family History: F ather: [...] needed Orally Once a day , Taking Rosuvastatin Calcium 20 MG Tablet 1 tablet Orally At Bed Time , Taking Triamterene-HCTZ 37.5-25 MG Tablet TAKE ONE TABLET BY MOUTH EVERY DAY , Taking Potassium Chloride ER 10 mEq Capsule Extended Release TAKE ONE CAPSULE BY MOUTH TWICE DAILY , Taking Donepezil HCl 5 MG Tablet 1 tablet at bedtime Orally Once a day , Taking DULoxetine HCl 30 MG Capsule Delayed Release Particles 1 capsule Orally Once a day , Taking Pramipexole Dihydrochloride 0.125 MG Tablet 2 Orally At Bed Time , Taking Raloxifene HCl 60 mg Tablet TAKE ONE TABLET BY MOUTH EVERY DAY , Medication List reviewed and reconciled with the patient * Allergies: f entaNYL, Tolmetin: hives. Objective: * Vitals: W t: 135.0, Temp: 98.0, BP: 130/80, HR: 71, Nurse: RISHABH, Ht: 62, BMI:24.69. * Examination: G eneral Examination: General Appearance: N AD. O ral cavity: n o lesions, mucosa moist and WNL, no erythema. N krysten: s upple, no lymphadenopathy. C hest: n ormal shape and expansion. H eart: R SR, frequent ectopics. L ungs: c lear to auscultation. A bdomen: soft and nontender. N eurologic Exam: I ntact, gait normal. S kin: n ormal, no rash. P eripheral pulses: n ormal . B ack: normal, mild dorsal kyphosis. E xtremities: n o leg edema. Assessment: * Assessment: 1. P VC's (premature ventricular contractions) - I49.3 (Primary) 2 . V isual changes - H53.9 3 . R heumatoid arthritis involving multiple sites with positive rheumatoid factor - M05.79 4 . E ssential (primary) hypertension - I10 & #160; 5 . M mirza loss - R41.3 6 . N ear syncope - R55 Plan: * Treatment: 2. V isual changes Notes: Sees Dr. Vladislav Todd. I would like her to have appointment with him soon due to the visual changes. * Follow Up: 1 Week * Images: Billing Information: * Visit Code: * Procedure Codes: * Electronic signature of Kobe Nye MD on 07/11/2025 at 08:25 AM EST Sign off status: Pending * Provider: Kobe Nye M.D. Date: 0 11/04/2024 Generated for Printi ng/Fasamg/eTransmitting on: 09/10/2024 08:25 AM EST History and Physical Notes * HPI (History of Present Illness) Category Sub-Category Detail Notes Category Not es Neurology insomnia Examination Category Sub-Category Detail Notes Category Not es General Examination HEENT: Heart: RSR, frequent ectopi cs Lungs: clear to auscultatio n Abdomen: soft and nontender Extremities: no leg edema General Appearance: NAD Skin: normal, no rash Neurologic Exam: Intact, gait normal Neck: supple, no lymphaden opathy Oral cavity: no lesions, mucosa m oist and WNL, no erythema Peripheral pulses: normal Back: normal, mild dorsal kyphosis Chest: normal shape and exp ansion
--- OUTSIDE RECORDS SUMMARY | 2024-11-14 10:00 | XMS_ITS ---
Author Organization [facility] Address [address] [facility] [address] [phone] Care Team Providers Care Rn Managed Care Name Role Phone Kobe Nye Primary Care Provider Allergies Allergen (clinical drug ingredient) Drug/Non Drug Allergy documented on EMR Reaction Allergy Type Onset Date Status fentanyl fentaNYL Unknown Drug Allergy Active tolmetin Tolmetin hives Drug Allergy Active REASON FOR VISIT [facility] Medications Medication SIG (Take, Route, Frequency, Duration) Notes Start Date End Date Status Leflunomide 20 MG 1 tablet Orally Once a day; Duration: 30 day(s) Active Pramipexole Dihydrochloride 0.125 MG 2 Orally At Bed Time 01/01/2024 Active Raloxifene HCl 60 mg TAKE ONE TABLET BY MOUTH EVERY DAY; Duration: 30 Active DULoxetine HCl 30 MG 1 capsule Orally On ce a day 10/07/2024 Active ONE A DAY FOR WOMEN 1 TAB(S) DIRECTED Active Donepezil HCl 5 MG 1 tablet at bedtime Orally Once a day 10/07/2024 Active traZODone HCl 50 MG 1 tablet at bedtime as needed Orally Once a day 07/08/2024 Active Rosuvastatin Calcium 20 MG 1 tablet Oral ly At Bed Time; Duration: 30 day(s) 08/01/2024 Active Align 4 MG 1 cap(s) orally once a day Active Vital Signs Blood pressure systolic 130 mm Hg 11/15/19 25 Blood pressure diastolic 80 mm Hg 025 Heart Rate 80 /min 11/14/2024 Height 62 in 11/14/2024 Weight 140.8 lbs 11/14/2024 BMI 25.75 kg/m2 11/14/2024 Encounters Encounter Location Date Provider Diagnosis [facility] 36 [facility] [address] [place] [phone] 11/14/2024 Kobe Nye PVC's (premature ventricular contractions) I49.3 ; Dizziness R42 and BMI 25.0-25.9,adult Z68.25 Assessments Encounter Date Diagnosis (ICD Code) Assessment Notes Treatment Notes Treatment Clinical Notes Section Notes 11/14/2024 PVC's (premature ventricular contractions) (ICD-10 - I49.3) I need to discuss the case with Dr. Drake. Cardiac cath was reassuring regarding EF and coronaries. I think beta conchita is indicated. 11/14/2024 Dizziness (ICD-10 - R42) 11/14/2024 BMI 25.0-25.9,adult (ICD-10 - Z68.25) 11/14/2024 Other Discharge summary with available lab/diagnostic imaging results obtained and reviewed. Discharge medication list reconciled. Appropriate counseling provided. Moderate Complexity Plan Of Treatment Treatment Notes Assessment Notes PVC's (premature ventricular contraction s) I need to discuss the case with Dr. Drake. Cardiac cath was reassuring regarding EF and coronaries. I think beta conchita is indicated. Other Discharge summary wi th available lab/diagnostic imaging results obtained and reviewed. Discharge medication list reconciled. Appropriate counseling provided. Moderate Complexity Next Appt Details Follow Up: 2 Weeks, Reason: Provider Name:Kobe Clifford er, 08/04/2025 09:30:00 AM, [address] [facility] 36 [facility], [address], [facility] [place], [phone], Progress Notes * KENISHA, DEREKDOB:[birth year] (70 yo F)Acc No.[id number]:11/14/2024 Patient: DEREK GUERRERO Provider: Kobe Nye M.D. :1955 A ge:69 Y S ex:Female Date:11/14/2024 Address:[address] [place] [address] [address] , [id number] Subjective: * Chief Complaints: * 1 . [facility] DC FU. * HPI: H PI: Patient is here today for a Transition of Care Visit. Discharge from the following Facility: [facility] , Discharge date: ,Date of phone contact following discharge: 11/08/2024 unable to leave message on home phone, 11/08/2024 left 2 messages on mobile number for return call, 11/11/2024 spoke with patient. Pt was seen at [facility] for Cardiac issues. Pt sts that she still sometimes feels flutters. Was seen yesterday by Cardiology. She was supposed to be discharged on Entresto, but there was some discussion about that. She was NOT discharged on Entresto. Farxiga 10mg was started yesterday. * ROS: D ERMATOLOGY: no R apurva. [...] work, COVID 19 Vaccine Pfizer, 08/03/20, 08/25/2020, Oceexmkk-xd-lfdh left forearm . * Surgical History: t ubal ligation 06/1988, lap/cholecystectomy 1997, ganglion cyst removal 1998, urologic surgery 1993, hysterectomy vaginal , colonoscopy, Dr. Biswas 12/31/03, skin biopsy from Left arm, Dr. Moss 09/01/2015, Lesion Removal From Tongue -Dr. Banks 11/23/2017, Orixqffl-kl-oneu left forearm 2014, colonoscopy, Dr. Hart 2009. [...] tablet Orally At Bed Time , Taking Donepezil HCl 5 MG Tablet 1 tablet at bedtime Orally Once a day , Taking DULoxetine HCl 30 MG Capsule Delayed Release Particles 1 capsule Orally Once a day , Taking Pramipexole Dihydrochloride 0.125 MG Tablet 2 Orally At Bed Time , Taking Raloxifene HCl 60 mg Tablet TAKE ONE TABLET BY MOUTH EVERY DAY , Discontinued Triamterene- HCTZ 37.5-25 MG Tablet TAKE ONE TABLET BY MOUTH EVERY DAY , Discontinued Potassium Chloride ER 10 mEq Capsule Extended Release TAKE ONE CAPSULE BY MOUTH TWICE DAILY , Medication List reviewed and reconciled with the patient * Allergies: f entaNYL, Tolmetin: hives. Objective: * Vitals: W t: 140.8, Temp: 97.9, BP: 130/80, HR: 80, O2 Sat: 98% on RA, Nurse: [facility], Ht: 62, BMI:25.75. * Examination: G eneral Examination: General Appearance: [...] ventricular contractions) - I49.3 (Primary) 2 . D izziness - R42 3 . B MS 25.0-25.9,adult - Z68.25 Plan: * Treatment: 2. O thers Notes: Discharge summary with available lab/diagnostic imaging results obtained and reviewed. Discharge medication list reconciled. Appropriate counseling provided. Moderate Complexity * Procedure Codes: 9 [address] [place], [address] TRANS CARE MGMT 14 DAY DISCH, 1111F DSCHR MED/CURENT MED MERGE, G2211 Complex e/m visit add on, 3075F SYST BP GE 130 - 139MM HG, 3079F DIAST BP 80-89 MM HG * Follow Up: 2 Weeks * Images: Billing Information: * Visit Code: 58622 Office Visit, Est Pt., Level 3. * Procedure Codes: [address] [place]. [address] TRANS CARE MGMT 14 DAY DISCH. 1111F DSCHR MED/CURENT MED MERGE. G2211 Complex e/m visit add on. 3075F SYST BP GE 130 - 139MM HG. 3079F DIAST BP 80-89 MM HG. * Electronic signature of Kobe Nye MD on 07/11/2025 at 08:25 AM EST Sign off status: Pending * Provider: Kobe Nye M.D. Date: 0 11/14/2024 Generated for Chon cedeño/Monae/eTransmitting on: 1 09/10/2024 08:25 AM EST History and Physical Notes * HPI (History of Present Illness) Category Sub-Category Detail Notes Category Not es HPI Patient is here toda y for a Transition of Care Visit. Discharge from the following Facility: [facility] ,Discharge date: 11/06/2024 ,Date of phone contact following discharge: 11/08/2024 unable to leave message on home phone, 11/08/2024 left 2 messages on mobile number for return call, 11/11/2024 spoke with patient. Pt was seen at [facility] for Cardiac issues. Pt sts that she still sometimes feels flutters Was seen yesterday by Cardiology. She was supposed to be discharged on Entresto, but there was some discussion about that. She was NOT discharged on Entresto. Farxiga 10mg was started yesterday. Examination Category Sub-Category Detail Notes Category Not [...]
--- OUTSIDE RECORDS SUMMARY | 2024-12-02 06:00 | XMS_ITS ---
[facility] Address [address] [facility] [address] [phone] Care Team Providers Care Labor Economist Name Role Phone Kobe Nye Primary Care Provider [phone] Allergies Allergen (clinical drug ingredient) Drug/Non Drug Allergy documented on EMR Reaction Allergy Type Onset Date Status fentanyl fentaNYL Unknown Drug Allergy Active tolmetin Tolmetin hives Drug Allergy Active REASON FOR VISIT 2 weeks Medications Medication SIG (Take, Route, Frequency, Duration) Notes Start Date End Date Status Rosuvastatin Calcium 20 MG 1 tablet Oral ly At Bed Time; Duration: 30 day(s) 08/01/2024 Active DULoxetine HCl 30 MG 1 capsule Orally On ce a day 10/07/2024 Active Donepezil HCl 5 MG 1 tablet at bedtime Orally Once a day 10/07/2024 Active Pramipexole Dihydrochloride 0.125 MG 2 Orally At Bed Time 01/01/2024 Active Raloxifene HCl 60 mg TAKE ONE TABLET BY MOUTH EVERY DAY; Duration: 30 Active traZODone HCl 50 MG 1 tablet at bedtime as needed Orally Once a day 07/08/2024 Active Leflunomide 20 MG 1 tablet Orally Once a day; Duration: 30 day(s) Active Aspirin 81 81 MG 1 tablet Orally Once a day Active Align 4 MG 1 cap(s) orally once a day Active ONE A DAY FOR WOMEN 1 TAB(S) DIRECTED Active Farxiga 10 MG 1 tablet Orally Once a day Active Vital Signs Blood pressure systolic 140 mm Hg 12/03/19 25 Blood pressure diastolic 90 mm Hg 025 Heart Rate 71 /min 12/02/2024 Height 62 in 12/02/2024 Weight 134.2 lbs 12/02/2024 BMI 24.54 kg/m2 12/02/2024 Encounters Encounter Location Date Provider Diagnosis [facility] [facility] 36 [facility] [address] [place], [place] [id number] 12/02/2024 Kobe Nye PVC's (premature ventricular contractions) I49.3 and BMI 24.0-24.9, adult Z68.24 Assessments Encounter Date Diagnosis (ICD Code) Assessment Notes Treatment Notes Treatment Clinical Notes Section Notes 12/02/2024 PVC's (premature ventricular contractions) (ICD-10 - I49.3) Cont RX. I NEED to speak to Dr. Foss. He has not contacted me. He did call today 12:45 PM. We discussed the MRI as a deciding factor. Has not yet been read. Also still with Holter monitor in place. 12/02/2024 BMI 24.0-24.9, adult (ICD-10 - Z68.24) Plan Of Treatment Treatment Notes Assessment Notes PVC's (premature ventricular contraction s) Cont RX. I NEED to speak to Dr. Foss. He has not contacted me. He did call today 12:45 PM. We discussed the MRI as a deciding factor. Has not yet been read. Also still with Holter monitor in place. Next Appt Details Follow Up: 6 Weeks, Reason: Provider Name:Kobe Clifford er, 08/04/2025 09:30:00 AM, [address] [facility] 36 [facility], [address], [place], [place], [id number], Progress Notes * KENISHA, DEREKDOB:[birth year] (70 yo F)Acc No.[id number]:12/02/2024 Progress Notes Patient: DEREK GUERRERO Provider: Kobe Nye M.D. :1955 A ge:69 Y S ex:Female Date:12/02/2024 Address:[address] [place] [address], [id number] Subjective: * Chief Complaints: * 1 . 2 weeks. * HPI: C ardiology: The pt is here for a follow up on PVC's. Pt states she did see Dr Drake and was started on Asprin 81 mg and Farxiga 10 mg daily. Pt states she does feel the flutters occasionally. 69 year old female presents with c/o Palpitations. Denies : Chest Pain. D enies : Short of Breath. D enies : Dizziness. * ROS: D ERMATOLOGY: no R apurva. n o H jonny. G ASTROENTEROLOGY: no N ausea. n o V omiting. n o D iarrhea.? U ROLOGY: no D ifficulty urinating. n o B lood in urine. * Medical History: D iverticulosis, herpes simplex I, Urethral syndrome/chronic cystitis, left anterior fascicular block on EKG, Flu shot 2017 at work, COVID 19 Vaccine Pfizer, 08/03/20, 08/25/2020, Ybnjvzii-cd-kfyk left forearm . * Surgical History: t ubal ligation 06/1988, lap/cholecystectomy 1997, ganglion cyst removal 1998, urologic surgery 1993, hysterectomy vaginal , colonoscopy, Dr. Biswas 12/31/03, skin biopsy from Left arm, Dr. Moss 09/01/2015, Lesion Removal From Tongue -Dr. Banks 11/23/2017, Wwuqbmnv-jd-vwox left forearm 2014, colonoscopy, Dr. Hart 2009. [...] no. Alcohol: socially. * Medications: T aking Farxiga 10 MG Tablet 1 tablet Orally Once a day , Taking Aspirin 81 81 MG Tablet Delayed Release 1 tablet Orally Once a day , Taking Leflunomide 20 MG Tablet 1 [...] Tolmetin: hives. Objective: * Vitals: W t: 134.2, Temp: 98.2, BP: 140/90, HR: 71, O2 Sat: 97% on RA, Nurse: RISHABH, Ht: 62, BMI:24.54. * Examination: G eneral Examination: General Appearance: N AD. O ral cavity: n o lesions, mucosa moist and WNL, no erythema. N krysten: s upple, no lymphadenopathy. C hest: n ormal shape and expansion. H eart: R SR, no ectopics. L ungs: c lear to auscultation. A bdomen: soft and nontender. N eurologic Exam: I ntact, gait normal. S kin:?normal, no rash. P eripheral pulses: n ormal . B ack: normal, mild dorsal kyphosis. E xtremities: n o leg edema. Assessment: * Assessment: 1. B CT 24.0-24.9, adult - Z68.24 2 . P VC's (premature ventricular contractions) - I49.3 Plan: * Treatment: * Procedure Codes: G 2211 Complex e/m visit add on, 3077F SYST BP = 140 MM HG6 IT, 3080F DIAST BP = 90 MM HG * Follow Up: 6 Weeks * Images: Billing Information: * Visit Code: 46579 Office Visit, Est Pt., Level 3. * Procedure Codes: G2211 Complex e/m visit add on. 3077F SYST BP = 140 MM HG6 IT. 3080F DIAST BP = 90 MM HG. * Electronic signature of Kobe Nye MD on 07/11/2025 at 08:24 AM EST Sign off status: Pending * Provider: Kobe Nye M.D. Date: 0 12/02/2024 Generated for Chon cedeño/Monae/Sienna on: 1 09/10/2024 08:24 AM EST History and Physical Notes * HPI (History of Present Illness) Category Sub-Category Detail Notes Category Not es Cardiology Short of Breath Chest Pain Palpitations Dizziness Examination Category Sub-Category Detail Notes Category Not es General Examination HEENT: Heart: RSR, no ectopics Lungs: clear to auscultatio n Abdomen: soft and nontender Extremities: no leg edema General Appearance: NAD Skin: normal, no rash Neurologic Exam: Intact, gait normal Neck: supple, no lymphaden opathy Oral cavity: no lesions, mucosa m oist and WNL, no erythema Peripheral pulses: normal Back: normal, mild dorsal kyphosis Chest: normal shape and exp ansion
--- OUTSIDE RECORDS SUMMARY | 2025-01-27 06:45 | XMS_ITS ---
[facility] [address] [facility] [address] [id number] Care Team Providers Care Vp Production Name Role Phone Kobe Nye Primary Care Provider Allergies Allergen (clinical drug ingredient) Drug/Non Drug Allergy documented on EMR Reaction Allergy Type Onset Date Status fentanyl fentaNYL Unknown Drug Allergy Active tolmetin Tolmetin hives Drug Allergy Active Reason For Referral Reason memory loss Diagnosis 1 Memory loss (R41.3) Referral Organization [facility] Referring Provider First Name Kobe Davison Referring Provider Last Name Popeye Referring Provider Speciality Family Pra ctice Referred Provider Specialty Neurology General Notes Kenisha Victoria 2024 02:57:45 PM > faxed to [facility] Neurology Referral Priority Routine REASON FOR VISIT 6 weeks Medications Medication SIG (Take, Route, Frequency, Duration) Notes Start Date End Date Status DULoxetine HCl 30 MG 1 capsule Orally On day 10/07/2024 Active traZODone HCl 50 MG 1 tablet at bedtime as needed Orally Once a day 07/08/2024 Active Rosuvastatin Calcium 20 MG 1 tablet Oral ly At Bed Time; Duration: 90 days Active Raloxifene HCl 60 mg TAKE ONE TABLET BY MOUTH EVERY DAY; Duration: 30 Active Pramipexole Dihydrochloride 0.125 MG 2 Orally At Bed Time 01/01/2024 Active ONE A DAY FOR WOMEN 1 TAB(S) DIRECTED Active Memantine HCl ER 7 MG 1 capsule Orally O nce a day; Duration: 30 days 01/27/2025 Active Donepezil HCl 10 MG 1 tablet at bedtime Orally Once a day; Duration: 30 days 01/27/2025 Active Align 4 MG 1 cap(s) orally once a day Active Leflunomide 20 MG 1 tablet Orally Once a day; Duration: 30 day(s) Active Aspirin 81 81 MG 1 tablet Orally Once a day Active Farxiga 10 MG 1 tablet Orally Once a day Active Vital Signs Blood pressure systolic 130 mm Hg 01/28/20 25 Blood pressure diastolic 80 mm Hg 025 Heart Rate 76 /min 01/27/2025 Height 62 in 01/27/2025 Weight 131.4 lbs 01/27/2025 BMI 24.03 kg/m2 01/27/2025 Encounters Encounter Location Date Provider Diagnosis [facility] [address] [facility] [address] [facility] [address] [place] [id number] 01/27/2025 Kobe Nye Memory loss R41.3 ; Essential (primary) hypertension I10 and BMI 24.0-24.9, adult Z68.24 Assessments Encounter Date Diagnosis (ICD Code) Assessment Notes Treatment Notes Treatment Clinical Notes Section Notes 01/27/2025 Memory loss (ICD-10 - R41.3) 01/27/2025 Essential (primary) hypertension (ICD-10 - I10) 01/27/2025 BMI 24.0-24.9, adult (ICD-10 - Z68.24) Plan Of Treatment Medication Medication Name Sig Start Date Stop Date Notes Memantine HCl ER 7 MG 1 capsule Orally O nce a day; Duration: 30 days 01/27/2025 Donepezil HCl 10 MG 1 tablet at bedtime Orally Once a day; Duration: 30 days 01/27/2025 Donepezil HCl 5 MG 1 tablet at bedtime Orally Once a day 10/07/2024 Referrals Referral Date Details 01/27/2025 01/27/2025, memory l oss Next Appt Details Follow Up: 3 Months, Reason: Provider Name:Kobe Clifford er, 08/04/2025 09:30:00 AM, [address] [facility], [place], [phone], Progress Notes * DEREK DEDOB:[birth year] (70 yo F)Acc No.[id number]:01/27/2025 Progress Notes Patient: T UCKER, DEREK Provider: Kobe Nye M.D. :1955 A ge:69 Y S ex:Female Date:01/27/2025 Address:[address] [facility] [address] [facility] Subjective: * Chief Complaints: * 1 . 6 weeks. * HPI: H PI: 69 year old female presents with c/o Patient is here today for?Pt is here today for a 6 week check up. Pt sts she is doing well and has no concerns at this time. * ROS: D ERMATOLOGY: no R apurva. [...] work, COVID 19 Vaccine Pfizer, 08/03/20, 08/25/2020, Bglmfuzf-in-atyc left forearm . * Surgical History: t ubal ligation 06/1988, lap/cholecystectomy 1997, ganglion cyst removal 1998, urologic surgery 1993, hysterectomy vaginal , colonoscopy, Dr. Biswas 12/31/03, skin biopsy from Left arm, Dr. Moss 09/01/2015, Lesion Removal From Tongue -Dr. Banks 11/23/2017, Yzdkyywn-kx-rusx left forearm 2014, colonoscopy, Dr. Hart 2009. [...] needed Orally Once a day , Taking Donepezil HCl 5 MG Tablet [...] 1 tablet Orally At Bed Time , Medication List reviewed and reconciled with the patient * Allergies: f entaNYL, Tolmetin: hives. Objective: * Vitals: W t: 131.4, Temp: 98.3, BP: 130/80, HR: 76, Nurse: khushbu, Ht: 62, BMI:24.03. * Examination: G eneral Examination: General Appearance: [...] o leg edema. Assessment: * Assessment: 1. M mirza loss - R41.3 (Primary) 2 . E ssential (primary) hypertension - I10 3 . B MA 24.0-24.9, adult - Z68.24 Plan: * Treatment: 2. E ssential (primary) hypertension Start Donepezil HCl Tablet, 10 MG, 1 tablet at bedtime, Orally, Once a day, 30 days, 30, Refills 5;?Start Memantine HCl ER Capsule Extended Release 24 Hour, 7 MG, 1 capsule, Orally, Once a day, 30 days, 30, Refills 3. * Procedure Codes: G 2211 Complex e/m visit add on, G8420 BMI<30 AND >=22 CALC & DOCU, 1036F TOBACCO NON-USER, G8950 PREHTN/HTN BP DOC INDCD F/U DOC, G8752 MOST RECENT SYSTOLIC BP < 140MM HG, G8754 MOST RECENT DIASTOLIC BP < 90MM HG, 3017F COLORECTAL CA SCREEN DOC REV, G9899 Scrn maraim perf rslts doc * Preventive Medicine: Screening / Special Tests: M ammogram , negative. C olonoscopy?Cologuard:01/06/2023, negative. * Follow Up: 3 Months * Images: Billing Information: * Visit Code: 32511 Office Visit, Est Pt., Level 3. * Procedure Codes: G2211 Complex e/m visit add on. G8420 BMI<30 AND >=22 CALC & DOCU. 1036F TOBACCO NON-USER. G8950 PREHTN/HTN BP DOC INDCD F/U DOC. G8752 MOST RECENT SYSTOLIC BP < 140MM HG. G8754 MOST RECENT DIASTOLIC BP < 90MM HG. 3017F COLORECTAL CA SCREEN DOC REV. G9899 Scrn mariam perf rslts doc. * Electronic signature of Kobe Nye MD on 07/11/2025 at 08:24 AM EST Sign off status: Pending * Provider: Kobe Nye M.D. Date: 0 01/27/2025 Generated for Chon cedeño/Monae/eTransmitting on: 1 09/10/2024 08:24 AM EST History and Physical Notes * HPI (History of Present Illness) Category Sub-Category Detail Notes Category Not es HPI Patient is here today for Pt is here today for a 6 week check up. Pt sts she is doing well and has no concerns at this time Examination Category Sub-Category Detail Notes Category Not [...] kyphosis Chest: normal shape and exp ansion Consultation Request Notes Referral Date Referring Provider Referred Provider Not es 01/27/2025 Kobe Nye , [facility]
--- OUTSIDE RECORDS SUMMARY | 2025-05-05 05:00 | XMS_ITS ---
Author [facility] Address [address] [facility] [address] [id number] Care Team Providers Care Physical Therapy Director Name Role Phone Kobe Nye Primary Care Provider Allergies Allergen (clinical drug ingredient) Drug/Non Drug Allergy documented on EMR Reaction Allergy Type Onset Date Status fentanyl fentaNYL Unknown Drug Allergy Active tolmetin Tolmetin hives Drug Allergy Active REASON FOR VISIT 3 months, Needs mammogram Medications Medication SIG (Take, Route, Frequency, Duration) Notes Start Date End Date Status Rosuvastatin Calcium 20 MG 1 tablet Oral ly At Bed Time; Duration: 90 days Active Raloxifene HCl 60 mg 1 tablet orally onc e a day; Duration: 90 days Active DULoxetine HCl 30 mg 1 capsule orally on ce a day; Duration: 30 days Active Pramipexole Dihydrochloride 0.125 mg TAKE TWO TABLETS BY MOUTH EVERY DAY AT BEDTIME; Duration: 30 Active Donepezil HCl 5 mg TAKE ONE TABLET BY MOUTH EVERY DAY AT BEDTIME; Duration: 30 Active ONE A DAY FOR WOMEN 1 TAB(S) DIRECTED Active Align 4 MG 1 cap(s) orally once a day Active Leflunomide 20 MG 1 tablet Orally Once a day; Duration: 30 day(s) Active Memantine HCl ER 7 MG 1 capsule Orally O nce a day; Duration: 30 days 01/27/2025 Active traZODone HCl 50 MG 1 tablet at bedtime as needed Orally Once a day; Duration: 30 days Active Entresto 24-26 MG 1 tablet Orally Twic e a day Active Aspirin 81 81 MG 1 tablet Orally Once a day Active Immunizations Vaccine Route Administration Date Status Comme nts Fluzone High Dose (65yr and older) IM Intramuscular 05/05/2025 Administered Vital Signs Blood pressure systolic 108 mm Hg 05/05/20 25 Blood pressure diastolic 60 mm Hg 025 Heart Rate 75 /min 05/05/2025 Height 62 in 05/05/2025 Weight 131.6 lbs 05/05/2025 BMI 24.07 kg/m2 05/05/2025 Encounters Encounter Location Date Provider Diagnosis [facility] [address] [facility] 36 [facility] [address] [place], [place] [phone] 05/05/2025 Kobe Nye Decreased cardiac ejection fraction R93.1 ; Dizziness R42 ; Encounter for immunization Z23 and BMI 24.0-24.9, adult Z68.24 Assessments Encounter Date Diagnosis (ICD Code) Assessment Notes Treatment Notes Treatment Clinical Notes Section Notes 05/05/2025 Decreased cardiac ejection fraction (ICD-10 - R93.1) 05/05/2025 Dizziness (ICD-10 - R42) 05/05/2025 Encounter for immunization (ICD-10 - Z23) 05/05/2025 BMI 24.0-24.9, adult (ICD-10 - Z68.24) Plan Of Treatment Pending Test Test Name Order Date P-Basic Metabolic Panel (BMP) 05/05/2025 Next Appt Details Follow Up: 3 Months, Reason: Provider Name:Kobe Clifford er, 08/04/2025 09:30:00 AM, [address] [facility] 36 [facility], [address], [place], [place], [id number], Progress Notes * DEREK DEDOB:[birth year] (70 yo F)Acc No.[id number]:05/05/2025 Progress Notes Patient: DEREK GUERRERO Provider: Kobe Nye M.D. :1955 A ge:70 Y S ex:Female Date:05/05/2025 Address:[address] [place] [address], [facility] Subjective: * Chief Complaints: * 1 . 3 months. 2. Needs mammogram. * HPI: C ardiology: Reduced EF treated with Entresto. Symptomic orthostatic dizziness. Not on Farxiga. Cardiac follow-up 05/22/25. 70 year old female presents with c/o Dizziness P t c/o kstill having some dizziness at times as well. c/o Blood Pressure Elevated P t sts she is here today for a 3 month check up on hypertension and dyslipidemia. c/o Dyslipidemia. * ROS: D ERMATOLOGY: no R apurva. [...] work, COVID 19 Vaccine Pfizer, 08/03/20, 08/25/2020, Youmqvjl-nr-lslf left forearm . * Surgical History: t ubal ligation 06/1988, lap/cholecystectomy 1997, ganglion cyst removal 1998, urologic surgery 1993, hysterectomy vaginal , colonoscopy, Dr. Biswas 12/31/03, skin biopsy from Left arm, Dr. Moss 09/01/2015, Lesion Removal From Tongue -Dr. Banks 11/23/2017, Imjeiiev-rn-jsih left forearm 2014, colonoscopy, Dr. Hart 2009. [...] no. Alcohol: socially. * Medications: T aking Entresto 24-26 MG Tablet 1 tablet Orally Twice a day , Taking Aspirin 81 81 MG Tablet Delayed Release 1 tablet Orally Once a day , Taking Leflunomide 20 MG Tablet 1 tablet Orally Once a day , Taking ONE A DAY FOR WOMEN 1 TAB(S) DIRECTED , Taking Align 4 MG Capsule 1 cap(s) orally once a day , Taking Memantine HCl ER 7 MG Capsule Extended Release 24 Hour 1 capsule Orally Once a day , Taking traZODone HCl 50 MG Tablet 1 tablet at bedtime as needed Orally Once a day , Taking Rosuvastatin Calcium 20 MG Tablet 1 tablet Orally At Bed Time , Taking Raloxifene HCl 60 mg Tablet 1 tablet orally once a day , Taking Pramipexole Dihydrochloride 0.125 mg Tablet TAKE TWO TABLETS BY MOUTH EVERY DAY AT BEDTIME , Taking Donepezil HCl 5 mg Tablet TAKE ONE TABLET BY MOUTH EVERY DAY AT BEDTIME , Taking DULoxetine HCl 30 mg Capsule Delayed Release Particles 1 capsule orally once a day , Medication List reviewed and reconciled with the patient * Allergies: f entaNYL, Tolmetin: hives. Objective: * Vitals: W t: 131.6, Temp: 98.6, BP: 108/60, HR: 75, O2 Sat: 99% on RA, Nurse: lillie, Ht: 62, BMI:24.07. * Examination: G eneral Examination: General Appearance: [...] o leg edema. Assessment: * Assessment: 1. D ecreased cardiac ejection fraction - R93.1 (Primary) 2 . D izziness - R42 3 . E ncounter for immunization - Z23 4 . B OH 24.0-24.9, adult - Z68.24 Plan: * Treatment: * Immunizations: Fluzone High Dose (65yr and older) : 0.5 mL (Route: Intramuscular) given by LILLIE Isabel on Right Arm (Encounter for immunization) * Labs: * L ab: P-Basic Metabolic Panel (BMP) * Procedure Codes: G 2211 Complex e/m visit add on, G8420 BMI<30 AND >=22 CALC & DOCU, 1036F TOBACCO NON-USER, G8783 BP SCR PRFRM RCMDD DEFIND SCR INTVL, G8752 MOST RECENT SYSTOLIC BP < 140MM HG, G8754 MOST RECENT DIASTOLIC BP < 90MM HG, 3074F SYST BP LT 130 MM HG, 3078F DIAST BP < 80 MM HG * Follow Up: 3 Months * Images: Billing Information: * Visit Code: 63096 Office Visit, Est Pt., Level 3. * Procedure Codes: G2211 Complex e/m visit add on. G8420 BMI<30 AND >=22 CALC & DOCU. 1036F TOBACCO NON-USER. G8783 BP SCR PRFRM RCMDD DEFIND SCR INTVL. G8752 MOST RECENT SYSTOLIC BP < 140MM HG. G8754 MOST RECENT DIASTOLIC BP < 90MM HG. 3074F SYST BP LT 130 MM HG. 3078F DIAST BP < 80 MM HG. * Electronic signature of Kobe Nye MD on 07/11/2025 at 08:23 AM EST Sign off status: Pending * Provider: Kobe Nye M.D. Date: 0 05/05/2025 Generated for Chon cedeño/Monae/eTransmitting on: 09/10/2024 08:23 AM EST History and Physical Notes * HPI (History of Present Illness) Category Sub-Category Detail Notes Category Not es Cardiology Dizziness Pt c/o kstill scanlon ving some dizziness at times as well Blood Pressure Elevated Pt sts she is he re today for a 3 month check up on hypertension and dyslipidemia Dyslipidemia Examination Category Sub-Category Detail Notes Category Not [...]
--- OUTSIDE RECORDS SUMMARY | 2025-07-11 08:24 | XMS_ITS | Encounter Summary ---
[facility] Organization [facility] Address [address] [place] [address] Care Team Providers Care Commuter Pilot Name Role Phone Salo Nye MD Primary Care Provider [phone] Encounter Details Date Type Department Care Team (Late st Contact Info) Description 11/13/2024 Results Follow-Up [facility] [address] [address] Mago Love, [place] [address] [address] Social History Tobacco Use Types Packs/Day Years [...] Care Team (Late st Contact Info) Description 08/28/2025 9:15 AM EST Office Visit [facility] [address] [address] Mago Love, [place] [address] [address] documented as of this encounter Visit Diagnoses Not on filedocumented in this encounter Care Teams Commuter Pilot Relationship Specialty Start Date End Date Salo Nye MD [address] [facility] [address] [facility] [place] [address] PCP - General Family Medicine 08/02/23 documented as of this encounter
--- OUTSIDE RECORDS SUMMARY | 2025-07-11 08:24 | XMS_ITS | Patient Health Record ---
Author Organization [facility] Address [address] [facility] [address] [phone] Care Team Providers Care Diesel Retrofit Installer Name Role Phone Kobe Nye Primary Care Provider Allergies Allergen (clinical drug ingredient) Drug/Non Drug Allergy documented on EMR Reaction Allergy Type Onset Date Status fentanyl fentaNYL Unknown Drug Allergy Active tolmetin Tolmetin hives Drug Allergy Active Results Component Value Reference Range Notes EKG Reviewed date:10/11/2024 09:21:57 AM Interpretation:Abnormal Performing Lab: Notes/Report: Abnormal EKG Reviewed date:10/11/2024 09:21:57 AM Interpretation:Abnormal Performing Lab: Notes/Report: Abnormal H-TSH Reviewed date:11/05/2024 09:42:57 AM Interpretation: Performing [...] independently diagnostic. Clinical correlation is necessary. *ALERT* H-Lipid Panel Reviewed date:11/05/2024 09:42:57 AM Interpretation: [...] Biotin is occasionally prescribed for medical conditions. Bone density Reviewed date:03/14/2025 12:45:30 PM Interpretation:osteopenia bilateral hips Performing Lab: Notes/Report: osteopenia bilateral hips Bone density osteopenia bilateral hips Medications Medication SIG (Take, Route, Frequency, Duration) Notes Start Date End Date Status Memantine HCl ER 7 MG 1 capsule Orally O nce a day; Duration: 30 days Active Entresto 24-26 MG 1 tablet Orally Twic e a day Active ONE A DAY FOR WOMEN 1 TAB(S) DIRECTED Active Align 4 MG 1 cap(s) orally once a day Active Aspirin 81 81 MG 1 tablet Orally Once a day Active Leflunomide 20 MG 1 tablet Orally Once a day; Duration: 30 day(s) Active Rosuvastatin Calcium 20 MG 1 tablet Oral ly At Bed Time; Duration: 90 days Active DULoxetine HCl 30 mg 1 capsule orally on ce a day; Duration: 30 days Active Donepezil HCl 5 mg 1 tablet at bedtime orally daily; Duration: 30 days Active Pramipexole Dihydrochloride 0.125 mg 2 tablets orally once a day; Duration: 30 days Active Raloxifene HCl 60 mg 1 tablet orally onc e a day; Duration: 90 days Active traZODone HCl 50 MG 1 tablet at bedtime as needed Orally Once a day; Duration: 30 days Active Immunizations Vaccine Route Administration Date Status Comme nts COVID 19 Pfizer Unknown 08/03/2020 Administered COVID 19 Pfizer Unknown 08/25/2020 Administered COVID 19 Pfizer Unknown 05/12/2021 Administered DT, 7 YEARS OR OLDER IM Intramuscular 04/23/2005 Administe red Fluzone High Dose (65yr and older) Unknown 05/28/2021 Administered Fluzone High Dose (65yr and older) IM Intramuscular 05/05/2025 Administered Hepatitis A (adult) IM Intramuscular 04/23/2005 [...] W/U Status Risk Notes Problem Essential hypertension (42253186) Essential (primary) hypertension (I10) Active confirmed Problem Hypertension (64339873) HTN (hypertension) (I10) Active confirmed Problem History of malignant melanoma of the skin (070871553096) History of melanoma (Z85.820) Active confirmed Problem Essential hypertension (59826925) Essential hypertension (I10) Active confirmed Problem Abnormal mammogram (727551374) Abnormal mammogram (R92.8) Active confirmed Problem Diverticulitis (32926354) Diverticulitis (K57.92) Active confirmed Problem Mixed anxiety and depressive disorder (164966436) Depression with anxiety (F41.8) Active confirmed Problem Memory loss (67905789) Memory loss (R41.3) Active confirmed Problem Primary insomnia (5264421) Primary insomnia (F51.01) Active confirmed Problem Restless legs syndrome (40510566) Restless legs syndrome (G25.81) Active confirmed Problem Diverticulitis of colon (695606910) Diverticulitis of large intestine without perforation or abscess without bleeding (K57.32) Active confirmed Problem Fibrocystic breast changes (30432581) Diffuse cystic mastopathy of right breast (N60.11) Active confirmed Problem Disorder of female genital organs (676451669) Other specified conditions associated with female genital organs and menstrual cycle (N94.89) Active confirmed Problem Postmenopausal atrophic vaginitis (73871704) Postmenopausal atrophic vaginitis (N95.2) Active confirmed Problem Rheumatoid arthritis (66146775) Rheumatoid arthritis involving multiple sites with positive rheumatoid factor (M05.79) Active confirmed Problem Hyperlipidaemia (69833520) Hyperlipidemia, unspecified hyperlipidemia type (E78.5) Active confirmed Problem Dyslipidemia (448722543) Dyslipidemia (E78.5) Active confirmed Problem Joint pain (25580837) Arthralgia, unspecified joint (M25.50) Active confirmed Problem Thyromegaly (6612476) Thyromegaly (E01.0) Active confirmed Problem Osteopenia (852963949) Osteopenia, unspecified location (M85.80) Active confirmed Problem Achrochordon (496106808) Achrochordon (L91.8) Active confirmed Problem Fibrocystic breast changes (25754834) Fibrocystic breast disease (FCBD), unspecified laterality (N60.19) Active confirmed Problem Neoplasm of tongue (080061134) 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) Active confirmed Problem Localized, primary osteoarthritis of the shoulder region (463695176) AC joint arthropathy (M19.019) Active confirmed Problem Osteopenia of neck of femur, unspecified laterality (M85.859) Active confirmed Problem Multiple premature ventricular complexes (disorder) (778241334) PVC's (premature ventricular contractions) (I49.3) Active confirmed Problem Disorder of cornea (89279621) Corneal abnormality (H18.9) Active confirmed Vital Signs Heart Rate 75 /min 05/05/2025 Blood pressure diastolic 60 mm Hg 05/05/2025 Height 62 in 05/05/2025 Blood pressure systolic 108 mm Hg 05/05/2025 Weight 131.6 lbs 05/05/2025 BMI 24.07 kg/m2 05/05/2025 Encounters Encounter Location Date Provider Diagnosis [facility] [address] [place] [id number] 10/07/2024 Kobe Nye Essential hypertensi on I10 ; Restless legs syndrome G25.81 ; Acute midline low back pain without sciatica M54.50 ; Memory loss R41.3 and Heart palpitations R00.2 [facility] [address] [place] [id number] 11/04/2024 Kobe Nye PVC's (premature ventricular contractions) I49.3 ; Visual changes H53.9 ; Rheumatoid arthritis involving multiple sites with positive rheumatoid factor M05.79 ; Essential (primary) hypertension I10 ; Memory loss R41.3 and Near syncope R55 [facility] [address] [place], [place] [id number] 11/14/2024 J Saman Nye PVC's (premature ventricular contractions) I49.3 ; Dizziness R42 and BMI 25.0-25.9,adult Z68.25 [facility] [address] [place] [id number] 12/02/2024 J Saman Nye PVC's (premature ventricular contractions) I49.3 and BMI 24.0-24.9, adult Z68.24 [facility] [address] [place] [id number] 01/27/2025 J Saman Nye Memory loss R41.3 ; Essential (primary) hypertension I10 and BMI 24.0-24.9, adult Z68.24 [facility] [address] [place] [id number] 05/05/2025 Kobe Nye Decreased cardiac ejection fraction R93.1 ; Dizziness R42 ; Encounter for immunization Z23 and BMI 24.0-24.9, adult Z68.24 [facility] [address] [facility] [address] [place] [id number] 08/08/2024 Kobe Nye Restless legs syndro me G25.81 [facility] [address] [facility] [address] [place] [id number] 10/11/2024 Kobe Nye Heart palpitations R00.2 [facility] [address] [place] [id number] 11/06/[address] [facility] [address] [facility] [address] [place] [id number] 11/18/2024 Kobe Nye Primary insomnia F51 .01 [facility] [address] [facility] [address] [place] [id number] 02/05/2025 Kobe Nye Screening for osteoporosis Z13.820 and Screening for breast cancer Z12.39 [facility] [address] [place] [id number] 02/17/[address] [facility] [address] [facility] [address] [place] [id number] 03/14/2025 Kobe Nye [facility] [address] [place] [id number] 05/20/2025 Kobe Nye Assessments Encounter Date Diagnosis (ICD Code) Assessment Notes Treatment Notes Treatment Clinical Notes Section Notes 08/08/2024 Restless legs syndrome (ICD-10 - G25.81) 10/07/2024 Essential hypertension (ICD-10 - I10) 10/07/2024 Restless legs syndrome (ICD-10 - G25.81) 10/11/2024 Heart palpitations (ICD-10 - R00.2) 11/04/2024 PVC's (premature ventricular contractions) (ICD-10 - I49.3) ADMIT TO [facility] OBS FOR DYSRRHYTHMIA, NEAR SYNCOPE, [...] 02/05/2025 Screening for osteoporosis (ICD-10 - Z13.820) 05/05/2025 Dizziness (ICD-10 - R42) 05/05/2025 Decreased cardiac ejection fraction (ICD-10 - R93.1) 11/04/2024 Rheumatoid arthritis involving multiple sites with positive rheumatoid factor (ICD-10 - M05.79) 05/05/2025 Encounter for immunization (ICD-10 - Z23) 01/27/2025 BMI 24.0-24.9, adult (ICD-10 - Z68.24) 11/14/2024 BMI 25.0-25.9,adult (ICD-10 - Z68.25) 10/07/2024 Acute midline low back pain without sciatica (ICD-10 - M54.50) 11/04/2024 Essential (primary) hypertension (ICD-10 - I10) 05/05/2025 BMI 24.0-24.9, adult (ICD-10 - Z68.24) 10/07/2024 Memory loss (ICD-10 - R41.3) 11/04/2024 Memory loss (ICD-10 - R41.3) 10/07/2024 Heart palpitations (ICD-10 - R00.2) 11/04/2024 Near syncope (ICD-10 - R55) 11/14/2024 Other Discharge summary with available lab/diagnostic imaging results obtained and reviewed. Discharge medication list reconciled. Appropriate counseling provided. Moderate Complexity Plan Of Treatment Pending Test Test Name Order Date Mammogram 02/05/2025 P-Basic Metabolic Panel (BMP) 05/05/2025 Next Appt Details Provider Name:Kobe Clifford er, 08/04/2025 09:30:00 AM, [address] [facility], [address], [place], [place], [id number], Insurance Providers Payer Name Payer Address Payer Phone Subscriber Number Group Number Insured Name Patient Relationship to Insured Coverage Start Date Coverage End Date [employer] [address] [address] [place], [place] [id number] [place] [address] Self - patient is the insured Medications Administered Medication Instructions Date of Administration Dosage Notes Depo- Medrol 40 mg/ml 12/03/2012 Dexamethasone 12/26/2017 1 mL Dexamethasone 12/31/2022 1 mL Medical (General) History Medical History History ICD Code diverticulosis 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 Biswas 12/31/03 skin biopsy from Left arm, Dr. Moss Lesion Removal From Tongue -Dr. Banks 11/23/2017 Xkblemgu-gj-moxg left forearm 2014 colonoscopy, Dr. Hart 2009 Hospitalization History Reason Date(Month/Year) [facility]-diverticulosis 11/04 to 11/06/08
--- OUTSIDE RECORDS SUMMARY | 2025-07-11 08:24 | XMS_ITS | Clinical Summary ---
Author Organization Healthcare Address [address] 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 Pterygium of right eye 07/29/2021 Dry eyes 07/22/2021 Corneal deposit of both eyes 04/21/2020 Diverticulitis 04/21/2020 Melanoma 08/27/2015 Cancer Staging:Clinical: Unsigned Arthralgia of hand 12/31/2014 Resolved Problems Problem Noted Date Diagnosed Date Resolved Date High risk medication use 03/21/2022 Combined forms of age-relate d cataract of both eyes 03/16/2022 05/04/2025 Presbyopia of both eyes 04/26/2021 0908/2024 Regular astigmatism of both eyes 04/26/2021 05/04/2025 Age-related nuclear cataract of both eyes 04/21/2020 05/04/2025 Bilateral myopia 04/21/2020 05/04/2025 Immunizations Immunization Administration Dates Next Due Hep A, Adult 06/13/2018 Hep B, adult 10/14/1999,09/14/1999,07/27/1999 Influenza, Unspecified 05/18/2020,2018,05/08/2018,06/01,05/25/2016,05/26/2015,05/26/2014 ,05/30/2013,05/30/2012,05/30/2011 Influenza, high-dose, quadrivalent 05/28/2021 PPD Skin Test (TB Skin Test) 02/05/2014, 01/22/2013,01/25/2012,06/24,07/13/2010,07/31/2009,08/20/2008 ,07/10/2007,07/31/2006,07/17/2006 ReelSurfer COVID-19 Vac cine (Purple Cap) 12+ 08/25/2020,08/03/2020 [...] 07/15/2025 2:30 PM EST Office Visit [facility] [address] [place] [address] Vladislav Todd MD [address] [place] [address] 02/03/2026 1:00 PM EDT Consult [facility] [place] [facility] [address] [place] [address] Keon Montez MD [address] [place] [address] Health Maintenance Due Date Last Done Comments [...] Vaccine: 50+ Years (3 of 3 - PCV20 or PCV21) 12/08/2021 11/24/2020, 12/08/2016 [id number] Vaccine ( season) 2025 05/20/2024, 06/19/2023, 06/08/2022, Additional history exists [facility]-Hepatitis A Vaccines Aged Out 06/13/2018, 04/14 No longer eligible based on patient's age to complete this topic [facility]-Influenza Vaccine Completed 05/05/2025 , 05/20/2024, 06/06/2023, Additional history exists HPV Vaccines Aged Out No longer eligi [...] on patient's age to complete this topic Insurance Care Teams Tip Mender Relationship Specialty Start Date End Date Salo Nye MD [address] [place] [address] [place] [address] PCP - General 12/25/20
--- OUTSIDE RECORDS SUMMARY | 2025-07-11 08:26 | XMS_ITS | Clinical Summary ---
Author Organization [facility] Address [address] [place] [address] Care Team Providers Care Knot Saw Operator Name Role Phone Salo Nye MD Primary Care Provider [phone] Allergies Active Allergy Reactions Criticality Noted Date Comments Fentanyl Itching,Unknown (See Comments) Medium 12/31 Severe itching Tolmetin Rash,Unknown (See Comments) Low 09/01/19 16 Medications Multiple Vitamins-Minera ls (Multivitamin Gummies Adult) chewable tablet Daily. Acti ve raloxifene (EVISTA) 60 MG tablet Take 1 tablet by mouth Daily. 07/19/2023 Active DULoxetine (CYMBALTA) 30 MG capsule Take 1 capsule by mouth Daily. 10/07/2024 Active traZODone (DESYREL) 50 MG tablet Take 1 tablet by mouth Every Night. 09/25/2024 Active Aspirin Low Dose 81 MG EC tablet take one tablet by mouth every day Active donepezil (ARICEPT) 5 MG tablet TAKE ONE TABLET BY MOUTH EVERY DAY AT BEDTIME; Duration: 30 Active memantine (NAMENDA XR) 7 MG capsule sustained-relea se 24 hr extended release capsule Take 1 capsule by mouth Daily. 01/27/2025 Active metoprolol succinate XL (TOPROL-XL) 25 MG 24 hr tablet Daily 12/25/2024 Act sury pramipexole (MIRAPEX) 0.125 MG tablet TAKE TWO TABLETS BY MOUTH EVERY DAY AT BEDTIME; Duration: 30 11/04/2024 Active rosuvastatin (CRESTOR) 20 MG tablet take one tablet by mouth every day at bedtime Active Entresto 24-26 MG tablet take one tablet by mouth twice daily Active spironolactone (ALDACTONE) 25 MG tablet Daily 02/17/2025 Active leflunomide (ARAVA) 20 MG tabletIndicatio ns:Encounter for long-term (current) use of high-risk medication Take 1 tablet by mouth Daily. 30 tablet 4 04/23/2025 Active Active Problems Problem Noted Date Diagnosed [...] of high-risk medication 04/23/2024 Assessment & Plan (04/23/2025 9:34 AM EDT): * Leflunomide 20 mg PO once/day for RA * 1st prescribed 07/17/23 1. CBC and CMP every 8-12 weeks to monitor for medication toxicity. 2. No recent serious infections. 3. Refill today Orders: leflunomide (ARAVA) 20 MG tablet; Take 1 tablet by mouth Daily. CBC Auto Differential Comprehensive Metabolic Panel C-reactive Protein Sedimentation Rate Assessment & Plan (11/06/2024 12:58 PM EDT): [...] medication toxicity. 2. No recent serious infections Osteoarthritis 04/17/2024 Assessment & Plan (04/23/2025 9:34 AM EDT): 1. Tylenol PRN is ok as directed 2. She has tried oral NSAIDS like meloxicam and sulindac. 3. She has seen [facility] 4. She saw an orthopaedic surgeon 5. She had a shoulder injection Orders: CBC Auto Differential Comprehensive Metabolic Panel C-reactive Protein Sedimentation Rate Assessment & Plan (11/12/2024 11:27 AM EDT): 1. Tylenol PRN is ok as directed 2. She has tried oral NSAIDS like meloxicam and sulindac. Would avoid further NSAIDs with renal insufficiency. 3. She has seen [facility] 4. She saw an orthopaedic surgeon [...] with renal insufficiency. 3. She has seen [facility] 4. She saw an orthopaedic surgeon 5. She has had a shoulder injection 6. She has occasional left knee pain. No swelling or warmth or erythema. She does not feel that it is bad enough currently to warrant further workup. Seropositive rheumatoid arthritis 04/17/2024 Assessment & Plan (04/23/2025 9:34 AM EDT): * 08/18/21: CMP was fine, SPEP was ok, DS DNA 10 (0-9), INVESTOR RELATIONS MANAGER normal, Li normal, SSA and SSB normal, TSH normal, ESR normal, PTH normal, Uric acid normal, CBC was ok * Medications/treatments/interventions tried include: Tylenol, Mobic, Sulindac, she saw [facility], she has seen an claims adjuster crop, Plaquenil, she saw an orthopaedic surgeon, leflunomide, shoulder injection, duloxetine * 11/02/21 IgM RF +, CCP negative 1. Continue/refill leflunomide 2. Check labs today 3. Follow up in months 4. Her prognosis seems good 5. We gave her a handout on rheumatoid arthritis to take home and review Orders: CBC Auto Differential Comprehensive Metabolic Panel C-reactive Protein Sedimentation Rate Assessment & Plan (11/12/2024 11:15 AM EDT): * 08/18/21: CMP was fine, SPEP was ok, DS DNA 10 (0-9), INVESTOR RELATIONS MANAGER normal, Li normal, SSA and SSB normal, TSH normal, ESR normal, PTH normal, Uric acid normal, CBC was ok * Medications/treatments/interventions tried include: Tylenol, Mobic, Sulindac, she saw [facility], she has seen an claims adjuster crop, Plaquenil, she saw an orthopaedic surgeon, leflunomide, shoulder injection * 11/02/21 IgM RF +, CCP negative. 1. Continue/refill leflunomide 2. 04/24/24 labs with stable, mild renal insufficiency. Recheck labs today. 3. Follow up in 4 months 4. Her prognosis seems good Assessment & Plan (04/23/2024 10:37 AM EDT): * 08/18/21: CMP was fine, SPEP was ok, DS DNA 10 (0-9), INVESTOR RELATIONS MANAGER normal, Li normal, SSA and SSB normal, TSH normal, ESR normal, PTH normal, Uric acid normal, CBC was ok * Medications/treatments/interventions tried include: Tylenol, Mobic, Sulindac, she saw [facility], she has seen an claims adjuster crop, Plaquenil, she saw an orthopaedic surgeon, leflunomide, shoulder [...] both eyes 2019 Diverticulitis 04/21/2020 Melanoma 08/27/2015 Resolved Problems Problem Noted Date Diagnosed Date Resolved Date EVONNE positive 04/17/2024 04/23/2025 Encounters Date Type Department Care Team Description 04/24/2025 Results Follow-Up [facility] [address] [address] Jesus Vasquez DO 04/23/2025 8:45 AM EDT Office Visit [facility] [address] [address] Jesus Vasquez DO Seropositive rheumatoid arthritis (Primary Dx); Encounter for long-term (current) use of high-risk medication; Primary osteoarthritis involving multiple joints 04/23/2025 Travel from Last 3 Months Immunizations Immunization Administration Dates Next Due COVID-19 (UNSPECIFIED) 04/28/2021 Influenza, Unspecified 05/26/2021 Family History Medical History Relation Name Comments Cancer Father Maximus Lin Lung Diabetes Father Maximus Lin Heart disease Father Maximus Lin Alzheimer's disease Mother Thea Ballardead Arthritis Mother Thea Ballardead Hypertension Mother Thea Kinkead Osteoporosis Mother Thea Ballardead Multiple hip fractures Rheumatologic disease Mother Thea Ballardead Breast cancer Sister Christelle Kinkead Cancer Sister Christelle Kinkead Sister Hypertension Sister Christelle Kinkead Relation Name Status Comments Father Maximus Lin Mother Thea Kinkead Sister Christelle Kinkead Social History Tobacco Use Types Packs/Day Years [...] Sign Reading Time Taken Comments Blood Pressure 100/66 04/23/2025 9:10 AM EDT Pulse 82 11/12/2024 11:20 AM EDT Temperature 36.3 C (97.4 F) 04/23/2025 9:10 AM EDT Respiratory Rate - - Oxygen Saturation - - Inhaled Oxygen Concentration - - Weight 58.2 kg (128 lb 6.4 oz) 04/23/2025 9:10 A M EDT Height 160 cm (5' 2.99 ) 04/23/2025 9:10 AM EDT Body Mass Index 22.75 04/23/2025 9:10 AM EDT Plan of Treatment Upcoming Encounters Date Type Department Care Team (Late st Contact Info) Description 08/28/2025 9:15 AM EST Office Visit [facility] [address] [facility] [address] [place] [address] Mago Love APRN [address] [place] [address] Health Maintenance Due Date Last Done Comments MAMMOGRAM 1995 COLOGUARD 02/09/2000 COLON CANCER SCREENING 5 YEA R SIGMOIDOSCOPY 02/09/2000 COLONOSCOPY 02/09/2000 COLORECTAL CANCER SCREENING 02/09/2000 CT COLONOGRAPHY 02/09/2000 FECAL OCCULT BLOOD TEST 02/09/2000 FIT Testing (1 year) 02/09/2000 ZOSTER VACCINE (3 of 3) 05/31/2021 04/05/2021, 01/18 TDAP/TD VACCINES (2 - Td or Tdap) 06/14/2021 011, 04/23/2005 ANNUAL WELLNESS VISIT 08/10/2023 HEPATITIS C SCREENING 08/10/2023 INFLUENZA VACCINE 03/14/2025 05/20/2024, , 05/28/2021, Additional history exists COVID-19 Vaccine (8 - Mixed Product risk season) 2025 05/20/2024, 06/19/2023, 06/08/2022, Additional history exists Pneumococcal Vaccine 50+ (3 of 3 - PCV20 or PCV21) 11/24/2025 11/24/2020, 12/08/2016 DXA SCAN 03/12/2027 03/12/2025 Procedures Procedure Name Priority Date/Time Associated Diagnosis Comments CBC AND DIFFERENTIAL Routine 04/23/2025 10:05 AM EDT SEDIMENTATION RATE Routine 04/23/2025 10 :05 AM EDT Seropositive rheumatoid arthritis Encounter for long-term (current) use of high-risk medication Primary osteoarthritis involving multiple joints C-REACTIVE PROTEIN Routine 04/23/2025 10 :05 AM EDT Seropositive rheumatoid arthritis Encounter for long-term (current) use of high-risk medication Primary osteoarthritis involving multiple joints COMPREHENSIVE METABOLIC PANEL Routine 04/23/2025 10:05 AM EDT Seropositive rheumatoid arthritis Encounter for long-term (current) use of high-risk medication Primary osteoarthritis involving multiple joints DEXA BONE DENSITY AXIAL Routine 03/12/2025 Postmenopause from Last 3 Months or Most Recently Relevant to Health Maintenance Results * Sedimentation Rate (04/23/2025 10:05 AM EDT) Sed Rate <1 0 - 30 mm/hr [facility] Blood 04/23/2025 10:0 5 AM EDT 04/23/2025 Narrative [facility] ([facility]) - 04/24/2025 2:06 AM EDT Performed at: [address] [place] [id number] Nursing Home Administrator: Kayden Cabezas MD, Phone: [phone] Patient Fasting: N Jesus Vasquez DO LAB BLOOD ORDERABLES F inal Result [facility] ([facility]) [address] [place] [address], [facility] [address] [place] [address], * CBC & Differential (04/23/2025 10:05 AM EDT) WBC 5.01 3.40 - 10.80 10*3/mm3 [facility] RBC 4.23 3.77 - 5.28 10*6/mm3 [facility] Hemoglobin 12.4 12.0 - 15.9 g/dL [facility] Hematocrit 38.5 34.0 - 46.6 % [facility] MCV 91.0 79.0 - 97.0 fL [facility] MCH 29.3 26.6 - 33.0 pg [facility] MCHC 32.2 31.5 - 35.7 g/dL [facility] RDW 13.6 12.3 - 15.4 % [facility] Platelets 192 140 - 450 10*3/mm3 [facility] Neutrophil Rel % 58.9 42.7 - 76.0 % [facility] Lymphocyte Rel % 26.9 19.6 - 45.3 % [facility] Monocyte Rel % 12.0 5.0 - 12.0 % [facility] Eosinophil Rel % 1.2 0.3 - 6.2 % [facility] Basophil Rel % 0.8 0.0 - 1.5 % [facility] Neutrophils Absolute 2.95 1.70 - 7.00 10*3/mm3 [facility] Lymphocytes Absolute 1.35 0.70 - 3.10 10*3/mm3 [facility] Monocytes Absolute 0.60 0.10 - 0.90 10*3/mm3 [facility] Eosinophils Absolute 0.06 0.00 - 0.40 10*3/mm3 [facility] Basophils Absolute 0.04 0.00 - 0.20 10*3/mm3 [facility] Immature Granulocyte Rel % 0.2 0.0 - 0.5 % [facility] Immature Grans Absolute 0.01 0.00 - 0.05 10*3/mm3 [facility] nRBC 0.0 0.0 - 0.2 /100 WBC [facility] 04/23/2025 10:0 5 AM EDT 04/23/2025 Narrative [facility] ([facility]) - 04/24/2025 2:06 AM EDT Performed at: [address] [place] [id number] Nursing Home Administrator: Kayden Cabezas MD, Phone: [phone] Patient Fasting: N us [facility] BLOOD ORDERABLES F inal Result Performing Organization Address City/[facility]/ZIP Co de Phone Number [facility] ([facility]) [address] [place] [address], [facility] [address] [place] [address], * C-reactive Protein (04/23/2025 10:05 AM EDT) [facility] C-Reactive Protein <0.30 0.00 - 0.50 mg/dL [facility] Blood 04/23/2025 10:0 5 AM EDT 04/23/2025 Narrative [facility] ([facility]) - 04/24/2025 2:06 AM EDT Performed at: [address] [place] [id number] Nursing Home Administrator: Kayden Cabezas MD, Phone: [phone] Patient Fasting: N [facility] BLOOD ORDERABLES F inal Result Performing Organization Address City/[facility]/ZIP Co de Phone Number [facility] ([facility]) [address] [place] [address], [facility] [address] [place] [address], * (ABNORMAL) Comprehensive Metabolic Panel (04/23/2025 10:05 AM EDT) Pathologist [facility] Glucose 74 65 - 99 mg/dL [facility] BUN 18.0 8.0 - 23.0 mg/dL [facility] Creatinine 1.01(H) 0.57 - 1.00 mg/dL [facility] EGFR Result 60.0(L) >60.0 mL/min/1.7 3 [facility] Comment: GFR Categories in Chronic Kidney Disease (CKD) GFR Category GFR (mL/min/1.73) Interpretation G1 90 or greater Normal or high (1) G2 60-89 Mild decrease (1) G3a 45-59 Mild to moderate decrease G3b 30-44 Moderate to severe decrease G4 15-29 Severe decrease G5 14 or less Kidney failure (1)In the absence of evidence of kidney disease, neither GFR category G1 or G2 fulfill the criteria for CKD. eGFR calculation 2020 CKD-EPI creatinine equation, which does not include race as a factor BUN/Creatinine Ratio 17.8 7.0 - 25.0 [facility] Sodium 141 136 - 145 mmol/L [facility] Potassium 4.2 3.5 - 5.2 mmol/L [facility] Chloride 103 98 - 107 mmol/L [facility] Total CO2 26.8 22.0 - 29.0 mmol/L [facility] Calcium 9.6 8.6 - 10.5 mg/dL [facility] Total Protein 6.8 6.0 - 8.5 g/dL [facility] Albumin 4.5 3.5 - 5.2 g/dL [facility] Globulin 2.3 gm/dL [facility] A/G Ratio 2.0 g/dL [facility] Total Bilirubin 0.4 0.0 - 1.2 mg/dL [facility] Alkaline Phosphatase 49 39 - 117 U/L [facility] AST (SGOT) 26 1 - 32 U/L [facility] ALT (SGPT) 21 1 - 33 U/L [facility] Blood 04/23/2025 10:0 5 AM EDT 04/23/2025 Narrative [facility] ([facility]) - 04/24/2025 2:06 AM EDT Performed at: [address] [place] [id number] Nursing Home Administrator: Kayden Cabezas MD, Phone: [phone] Patient Fasting: N Jesus Vasquez DO LAB BLOOD ORDERABLES F inal Result [facility] ([facility]) [address] [place] [address], [facility] [address] [place] [address], * DEXA Bone Density Axial (03/12/2025) Anatomical Region Laterality Modality Wrist, Hip, L-spine N/A Radiographic Imaging Evva D Ivan K 12 PRINCIPAL IMG DXA ORDERABLES Final Resul t from Last 3 Months or Most Recently Relevant to Health Maintenance Insurance [facility] [employer] PPO [place] [id number] Care Teams Knot Saw Operator Relationship Specialty Start Date End Date Salo Nye MD [address] [facility] [address] [place] [address] PCP - General Family Medicine 08/02/23
--- NOTE | 2025-07-11 08:45 | CA_ITS ---
APPROVED REPORT EXAM: Comprehensive 2D, Doppler, and color-flow Echocardiogram Data Warehouse Developer: Marcy Bone RVT Ht: 5 ft 4 in Wt: 138lbs BSA: 1.67 BP: 109/60 mmHg Indications: CHEST PAIN,HFrEF Echo Enhancing Agent Indication: Endocardial border delineation Agent(s) / Amount(s) Used: Definity 2 cc 2D Dimensions LA Volume 27.10 mL LA Volume Index 16.23 mL/m2 (M/F) 16-34 M-Mode Dimensions RVDd 2.58 cm (0.9-2.6) LA Diam 3.14 cm (1.9-4.0) LVDd 4.78 cm (3.5-5.7) LVDs 3.53 cm (3.5-5.7) IVSd 0.80 cm (0.6-1.1) PWd 0.53 cm (0.6-1.1) EF (Teich) 51.30% FS 26.20% EDV (Teich) 106.50 mL TAPSE 2.36 (<1.7) ESV (Teich) 51.90 mL LV Diastology E Decel Time 250 (160-240 msec) E/A Ratio 0.8 Aortic Valve ROB Index 1.09 cm2/m2 AoV Peak Burton. 123.0 (50-130 cm/s) AI PHT 1404.00 ms AO Peak GR. 6.10 mmHg AO Mean GR. 3.20 (<5 mmHg) AO VTI 28.7 (18-25 cm) ROB (VTI) 1.86 (2.5-4.5 cm2) Mitral Valve MV E Max Burton. 58.0 (40-130 cm/s) MV A Velocity 69.0 (40-130 cm/s) E/A Ratio 0.83 MV PHT 73.0 ms Pulmonary Valve PV Peak Velocity 47.0 (50-150 cm/s) Tricuspid Valve TR P. Velocity 229.00 cm/s RAP Estimate 10.00 mmHg RVSP 31.00 mmHg Left Ventricle The left ventricle is normal size. Left ventricular systolic function is normal. The left ventricular ejection fraction is within the normal range. There is increased left ventricular wall thickness. There is normal LV segmental wall motion. Transmitral Doppler flow pattern suggests impaired LV relaxation. No left ventricle thrombus noted on this study. LVEF is 50-55% Right Ventricle The right ventricle is normal size. The right ventricular systolic function is normal. Atria The left atrium size is normal. The right atrium size is normal. There is no color Doppler evidence of interatrial shunt. Aortic Valve The aortic valve is mildly thickened. There is no hemodynamically significant aortic valvular stenosis. Mild aortic regurgitation is present. Mitral Valve The mitral valve is normal in structure. No evidence of mitral valve stenosis. Mild mitral regurgitation is present. Tricuspid Valve The tricuspid valve leaflets are thin and pliable. Mild tricuspid regurgitation. RVSP is 15-20 mmHg. Pulmonic Valve The pulmonary valve is grossly normal in structure. Trace pulmonic valve regurgitation is present. Great Vessels The aortic root is normal in size. IVC is normal in size and collapses >50% with inspiration. Pericardium There is no pericardial effusion. Other Information Study Quality: Fair Conclusion Normal biventricular systolic function (LVEF 50-55%). Mild MR, mild TR. Electronically signed by : Noelle Foss MD 07/13/2025 21:46:19
[2025-07-11] MEDS: DEFINITY US ECHO CONTRAST 2ML INJ 2 MG IV (09:16)
== END 2025-07-11 23:59 | disposition home or self-care (01) ==
LOC: RT 08:23
PROVIDERS: PCP Family Medicine; Visit Provider Internal Medicine
DX: I08.1 Rheumatic disorders of both mitral and tricuspid valves (principal); I50.20 Unspecified systolic (congestive) heart failure; I25.10 Atherosclerotic heart disease of native coronary artery without angina pectoris
CPT/HCPCS: 93306; Q9957